=== PATIENT | female | born 1960 | race Caucasian/White ===

== ENCOUNTER 2023-12-24 13:26 | Inpatient (IN) | payer MEDICARE, BC, SELFPAY ==
[2023-12-24] VITALS (13 sets, daily range): BP systolic 101–157; BP diastolic 43–126
[2023-12-24 07:48] LABS: % Basophils 0.3 % (0-2); % Eosinophils 0.6 % (0-6); % Lymphocytes 4.7 % (20.5-51.1); % Monocytes 3.6 % (1.7-9.3); % Neutrophils 89.8 % (42.2-75.2); Absolute Basophils 0.1 10^3/uL (0-0.2); Absolute Eosinophils 0.1 10^3/uL (0-0.7); Absolute Immature Granulocytes 0.2 10^3/uL (0-0.05); Absolute Lymphocytes 0.7 10^3/uL (1.2-3.4); Absolute Monocytes 0.6 10^3/uL (0.1-0.6); Absolute Neutrophils 13.8 10^3/uL (1.4-6.5); Hematocrit 29.7 % (37.0-47.0); Hemoglobin 9.8 g/dL (12.0-16.0); Mean Corpuscular Hgb 31.4 pg (27.0-31.0); Mean Corpuscular Volume 95.2 fL (81.0-99.0); Mean Platelet Volume 12.1 fL (7.4-10.4); Nucleated Red Blood Cells % 0 %; Platelet Count 89 10^3/uL (130-400); Red Blood Cell Count 3.12 10^6/uL (4.20-5.40); Red Cell Dist. Width 16.7 % (11.5-14.5); White Blood Cell Count 15.4 10^3/uL (4.8-10.8)
[2023-12-24 08:05] LABS: Blood Urea Nitrogen 30 mg/dl (7-17); Calcium 8.9 mg/dl (8.4-10.2); Carbon Dioxide 20 mmol/L (22-30); Chloride 107 mmol/L (98-107); Glucose 136 mg/dl (70-99); Sodium 140 mmol/L (135-145); eGFR 11.57
--- NOTE | 2023-12-24 08:08 | ED.GENMED ---
History of Present Illness
General
Chief Complaint: Change in Mental Status
Source: ambulance crew and jail records
Time Seen by Provider: 12/24/23 07:33
History of Present Illness
History of Present Illness:
63 yo female from [facility] for change in mental state. H/o alcoholic cirrhosis, chronic hepatic failure, IDDM, dysphagia, epilepsy, anemia, renal failure on dialysis, ambulatory dysfunction, GERD, HTN, hypokalemia, long QT, TIA, thrombocytopenia presents
unresponsive to voice, not opening eyes, does cry out with certain movements during exam.
Spoke with Nurse at [facility] who reports yesterday a.m. she had dialysis, she was participating in activities, today she saw her sitting in a wheelchair and she would not wake up, her left calf swollen, gets intermittent edema. Reports Hx vaginal bleeding.
Ena nurse at [facility] states pt is usually A&O x3, feeds self, conversive. She last saw her yesterday 4 p.m. and she was 'fine.' She reports that pt did not go to bed all night, sat up in wheelchair and when she came in today at 7 a.m. found pt in
wheelchair, not responding with Ax temp 99.4.
Past History
Past History
ED Past Medical History: CVA, GERD, IDDM, Renal failure, Seizures and Other (End-stage renal disease with dialysis MWF, disequilibrium syndrome, cirrhosis, hepatitis C, UTI)
Social History
Tobacco: Non-smoker
Alcohol: None
Drug: None
Personal: Single
Living: jail
Employment: Not employed
Family History
Family History: Unable to obtain
Review of Systems
Review of Systems
Allergies reviewed?: Yes
Unable to obtain full review of systems at this time due to: non-verbal
Other source history: jail and ambulance crew
Constitutional: Reports fever
ABD/GI: Denies vomiting or diarrhea
Musculoskeletal: Reports edema (chronic LE edema L>R)
Neurological: Reports other (change in LOC )
Phy Exam
Physical Exam
Physical Exam:
GENERAL: No acute distress. A&Ox3.
CONSTITUTIONAL: Afebrile.
EYES: PERRL, conjunctivae normal
ENMT: moist mucus membranes, Pharynx nl
RESPIRATORY: Regular respirations, nonlabored, lungs clear.
CARDIOVASCULAR: Regular rate and rhythm, no murmurs, no rubs.
GI: Soft, nontender, normal BS
: Small amount vaginal bleeding noted.
MUSCULOSKELETAL: Laying in semi position on left side. Bilateral LE edema L>R. Well perfused.
SKIN: Warm, dry, pale
PSYCH: Not responding to commands, not opening eyes.
NEUROLOGIC: Responds by screaming out to significant stimuli such as inserting nichole catheter.
Course
Orders/Labs/Results
Orders:
Orders
12/24/23 07:29
Electrocardiogram (*1) Urgent
Reason for Study: Other
Other Reason for Exam: change in MS
EKG- Treatment ONCE
12/24/23 07:36
Basic Metabolic Panel Urgent
Complete Blood Count/With Diff Urgent
Hepatitis B Surface Antibody Urgent
Comment: ADD ON
Hepatitis B Surface Antigen Urgent
Comment: ADD ON
12/24/23 08:04
Acetaminophen [Tylenol/Feverall] 650 mg RECTAL NOW STA
12/24/23 08:10
Lactic Acid Q4H
Comment: CANCEL 2nd LACTIC ACID IF 1st LACTIC ACID IS LESS THAN 2
12/24/23 08:12
CR Chest Portable - 1 View Urgent
Comment:
Reason For Exam: fever, mental status change
Reason Study Needs to be Portable: Other
12/24/23 08:23
ED Sepsis IVF Contraindication Routine
Sepsis IVF Contraindication: Chronic Hemodialysis
0.9% Sodium Chloride 250 ml [Nss] 250 ml IV BOLUS
Piperacillin/Tazo 3.375 Gram [Zosyn] 3.375 gram in 50 ml IV NOW
12/24/23 08:27
Bladder Scan- Treatment ONCE
12/24/23 08:37
Lipase Urgent
Comment: ADD ON
Potassium Urgent
Blood Culture Q30M
BG Source: Blood/Venous
Specimen Description:
Blood Culture Q30M
BG Source: Blood/Venous
Specimen Description:
12/24/23 09:54
Add On- LAB Urgent
Tests Added?: Lipase
12/24/23 10:09
Abdomen/Pelvis wo Contrast CT [CT Abd/pelvis Wo Iv Cont] Urgent
Comment:
Reason For Exam: fever, dialysis pt, low abd pain
12/24/23 10:41
COVID-19 Antigen Urgent
Source: Nasal Swab
Influenza A+B Rapid Molecular Urgent
BG Source: Nasal Swab
Specimen Description:
12/24/23 11:41
Hemodialysis treatment As Directed
Treatment date:: 12/25/23
Treatment type: Hemodialysis
Ultrafiltration (kg): 1-2
Treatment time (duration): 3 hours 30 minutes
Use dialysis access:: Tunneled Cath
Dialyzer:: Optiflux 160
Blood flow rate minimum: 350
Blood flow rate maximum: 400
Dialysis flow rate: 600 mL/min
Dialysate temperature: 35 degrees Celsius
Sodium (Na): 140
Potassium (K): 2
Calcium (Ca): 2.5
Bicarbonate (HCO3): 35
12/24/23 11:57
Lactic Acid Q4H
Comment: CANCEL 2nd LACTIC ACID IF 1st LACTIC ACID IS LESS THAN 2
12/24/23 13:08
Admit/Transfer Patient As Directed
Co-Sign Provider:
Level of Care: Inpatient admission
Assign to:: IMU- Intermediate Care
Physician / Group: Mahesh
Diagnosis: Sepsis, Acute TME
Reason for Hospitalization: Sepsis work up
Expected length of stay greater than two midnights?: Yes
ELOS- Estimated Length of Stay in days: 3
I certify the patient meets the requirements for IP care: Yes
PRN Pain Medication Management As Directed
May give lesser potent ordered pain med per pt: Yes
preference::
Protocol:: Medication orders for pain may be administered in a
manner that supports deferring to patient preference
when the pt is:
- Requesting an ordered lesser potent pain medication.
Least to most potent pain medications are defined
as: acetaminophen < NSAID < tramadol < opioids
(morphine, oxycodone, hydromorphone).
- Requesting a lesser dose of the same medication IF
ORDERED.
- Requesting a less intrusive route of administration
if both routes are prescribed by the provider (PO <
IV).
12/24/23 13:10
Code Status As Directed
Resuscitation Status: Full Code
12/24/23 13:18
US Periph Venous LOWER Ext LT Urgent
Comment:
Reason For Exam: swelling
12/24/23 14:45
0.9% Sodium Chloride 1000 ml [Nss] 1,000 ml IV 80 mls/hr
Acetaminophen [Tylenol] 650 mg PO Q6HPRN PRN
Bisacodyl [Dulcolax] 10 mg RECTAL DAILYPRN PRN
Dextrose 50%-Water [Dextrose 50% Syringe] 12.5 grams IV Q41GLCH PRN
Glucagon [GlucaGen] 1 mg IM PRN PRN
Midodrine [ProAmatine] 5 mg PO Q8HPRN PRN
Ondansetron HCl [Zofran] 4 mg PO Q6HPRN PRN
VANCOMYCIN Pharmacy to Dose [VANCOCIN Pharmacy to Dose] 1 each Pharmacy To Prepare [Call Pharmacy To Prepare] 0 ml IV PER PROTOCOL
12/24/23 14:45
NEPHROLOGY CONSULT Routine
Consulting Provider: Adonay Nguyen
Was physician already notified: Yes
Activity As Directed
Activity Level: With Assistance
Bedside Glucose Monitoring As Directed
Frequency: AC&HS
Additional Instructions:: Change to q6h if pt on TPN, tube feeding or not eating
Fentanyl Patch Confirmation [phone]
Sequential Compression Device [Pneumatic Compression Sleeves] As Directed
Type: Knee high
Comment: RLE only
DX Deep Vein Thrombosis Video Routine
12/24/23 16:00
FentaNYL 12 MCG/HR PATCH [Duragesic 12 Mcg/Hr Patch] 1 patch TRANSDERM Q72H
Piperacillin/Tazo 2.25 Gram [Zosyn] 2.25 grams in 50 ml IV Q8H
12/24/23 16:30
Insulin Aspart Corrective Low [Novolog Flexpen-Low Resistance] See Protocol SC AC
Sevelamer Carbonate [Renvela] 800 mg PO AC
12/24/23 17:00
Famotidine [Pepcid] 10 mg PO Q48H
12/24/23 18:00
Lactulose [Duphalac/Chronulac] 20 grams PO QID
12/24/23 20:00
Levetiracetam Injectable [Keppra] 250 mg IV Q12
12/24/23 22:00
Latanoprost [Xalatan Ophthalmic Solution] 1 drop BOTH EYES HS
Mirtazapine [Remeron] 7.5 mg PO HS
insulin glargine [Lantus U-100 Insulin] 5 unit SC HS
12/25/23 04:53
CBC/With Diff [Complete Blood Count/With Diff] IN AM
CMP [Comprehensive Metabolic Panel] IN AM
Glycohemoglobin (HgbA1c) IN AM
12/25/23 08:00
Albumin Human 25% 50 ml [Flexbumin 25% For Hemodialysis] 12.5 grams IV HD-Q1HPRN PRN
Epoetin Harry-Epbx [Retacrit] 10,000 units IV HD-ONCE ONE
Heparin See Dose Instructions INTRACATH HD-ONCE ONE
Mannitol 25% 12.5 grams IV HD-Q1HPRN PRN
Midodrine [ProAmatine] 5 mg PO HD-ONCE ONE
Sodium Chloride [Sodium Chloride 4 Meq/ml For Hemodialysis] 10 ml IV HD-Q1HPRN PRN
Timolol Maleate 0.5% [Timoptic 0.5% Ophthalmic Solution] 1 drop BOTH EYES DAILY
12/26/23 06:00
CBC/With Diff [Complete Blood Count/With Diff] IN AM
12/27/23 06:00
CBC/With Diff [Complete Blood Count/With Diff] IN AM
12/27/23 08:00
Midodrine [ProAmatine] 5 mg PO MoWeFr@0800
Abnormal Lab Results
12/24/23 12/24/23 12/24/23
07:36 08:10 11:57
WBC 15.4 H 10^3/uL
(4.8-10.8)
RBC 3.12 L 10^6/uL
(4.20-5.40)
Hgb 9.8 L g/dL
(12.0-16.0)
Hct 29.7 L %
(37.0-47.0)
MCH 31.4 H pg
(27.0-31.0)
RDW 16.7 H %
(11.5-14.5)
Plt Count 89 L 10^3/uL
(130-400)
MPV 12.1 H fL
(7.4-10.4)
Abs Immat Gran (auto) 0.2 H 10^3/uL
(0-0.05)
Absolute Neuts (auto) 13.8 H 10^3/uL
(1.4-6.5)
Absolute Lymphs (auto) 0.7 L 10^3/uL
(1.2-3.4)
Immature Gran % 1.0 H %
(0-0.5)
Neutrophils % 89.8 H %
(42.2-75.2)
Lymphocytes % 4.7 L %
(20.5-51.1)
Carbon Dioxide 20 L mmol/L
(22-30)
BUN 30 H mg/dl
(7-17)
Creatinine 4.1 H* mg/dL
(0.6-1.0)
Glucose 136 H mg/dl
(70-99)
Lactic Acid 3.1 H mmol/L 2.5 H mmol/L
(0.7-2.0) (0.7-2.0)
12/24/23 07:36
12/24/23 08:37
Vital Signs
Initial and Last Documented VS:
Initial Vital Signs
Pulse Resp Pulse Ox
81 18 99
12/24/23 07:23 12/24/23 07:23 12/24/23 07:23
Last Documented Vital Signs
Temp Pulse Resp BP Pulse Ox
99.5 F 77 18 130/72 96
12/25/23 11:48 12/25/23 13:15 12/25/23 13:15 12/25/23 13:49 12/25/23 13:00
MDM/Problems Addressed
Differential Diagnosis Includes:
UTI, PNA, SIRS, Sepsis, metabolic encephalopathy
MDM/Problems Addressed:
63 yo female from [place] for change in mental state. H/o alcoholic cirrhosis, chronic hepatic failure, IDDM, dysphagia, epilepsy, anemia, renal failure on dialysis, ambulatory dysfunction, GERD, HTN, hypokalemia, long QT, TIA, thrombocytopenia presents
unresponsive to voice, not opening eyes, does cry out with certain movements during exam.
Spoke with Nurse at [facility] who reports yesterday a.m. she had dialysis, she was participating in activities, today she saw her sitting in a wheelchair and she would not wake up, her left calf swollen, gets intermittent edema. Reports Hx vaginal bleeding.
Had dialysis yesterday
nEa nurse at [facility] states pt is usually A&O x3, feeds self, conversive. She last saw her yesterday 4 p.m. and she was 'fine.' She reports that pt did not go to bed all night, sat up in wheelchair and when she came in today at 7 a.m. found pt in
wheelchair, not responding with Ax temp 99.4.
T 102.1 R, BP 157/73 HR 84 dialysis pt. Not responding to verbal commands, screams out with certain movements and Nichole catheterization.
9:30 a.m.
CBC: WBC 15.4
CMP: no clinically significant abnormality, consistent with her renal failure on dialysis
Straight cathed with no urine return. Bladder scan no urine in bladder, probably does not make urine
CXR: IMPRESSION: Small right pleural effusion and adjacent atelectasis.
Lactate 3.1
12:[address] done awaiting results
T 101.1 R
Plan: Admit: Change in mental state, SIRS unknown source.
Hospitalist notified of admission
*Critical Care Note
Total Time (30-74mins, 75-104mins- exclusive of procedures): Not Applicable
ED Attending Note
-
Portions of this chart may have been created with voice recognition software.� Occasional wrong word or��sound alike� substitutions may have occurred due to the inherent limitations of voice recognition software.
Discharge Plan
Departure
Patient Disposition: Admit
Date of Disposition: 12/24/23
Time of Disposition: 12:03
Admit to: IMU
Presentation/result/management discussed w/ accepting MD/DO: Hospitalist
Condition: Serious
Discharge Problem:
SIRS (systemic inflammatory response syndrome), Change in mental state
Interventions
Interventions:
*Risk Screen - Suicide Last Done: 12/24/23 18:00
*General Assessment Last Done: 12/24/23 07:23
*Neglect/Abuse Screening Last Done: 12/24/23 07:23
*ED COVID-19 Vaccine History Last Done: 12/24/23 07:23
*Nursing Disposition Last Done: 12/24/23 14:52
ED- Neurological Assessment Last Done: 12/24/23 07:23
ED- Cardiac Assessment Last Done: 12/24/23 08:15
Discharge Date and Time
Discharge Date/Time: 12/24/23 14:52
[2023-12-24] MEDS: TYLENOL/FEVERALL 650 MG RECTAL ×2 (08:13→16:12)
[2023-12-24 08:34] LABS: Lactic Acid 3.1 mmol/L (0.7-2.0)
[2023-12-24] MEDS: NSS 250 IV (08:42)
[2023-12-24] MEDS: ZOSYN 50 IV ×3 (08:42→23:35)
[2023-12-24 09:14] LABS: Potassium 4.8 mmol/L (3.5-5.1)
[2023-12-24 10:32] LABS: Lipase 47 U/L (23-300)
[2023-12-24 11:08] LABS: COVID-19 Antigen Negative (Negative)
--- NOTE | 2023-12-24 11:35 | W.CON.NEPH ---
Consultation
-
Date/Time Consultation Requested: 12/24/23 1000
Date/Time Consultation Performed: 12/24/23 1100
Requesting Provider: Dr Zhu
Performing Provider: Dr Nguyen
Reason for Consultation: ESRD
Medical History
-
Chief Complaint: mental status change
Past Medical History
1. History of ESRD for several years.
2. alf resident at [facility].
3. 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
4. History of left upper extremity hybrid AV graft, status post
removal.
5. Right chest wall catheter.
6. History of COVID.
7. AFib.
8. Seizure disorder.
9. Hyperparathyroidism.
10. Chronic thrombocytopenia.
11. Alcoholic cirrhosis 2003.
12. Lymphocytic colitis April 2021.
13. GI bleeding April 2021.
14. Anemia, CKD and ESLD.
15. Depression.
16. History of MSSA mitral valve endocarditis.
17. GERD.
18. History of left hip fracture with repair and left humeral
fracture.
19. Hysterectomy.
20. Glaucoma.
Social History
Tobacco: Non-Smoker
Alcohol: None
Family History
Family History: Not Pertinent
Allergies / Home Medications
Allergy/AdvReac Type Severity Reaction Status Date / Time
No Known Allergies Allergy Verified 11/02/22 15:04
�Medication �Instructions �Recorded �Confirmed �Type
levetiracetam 250 mg tablet 250 mg PO BID Seizures 02/01/20 12/24/23 History
bisacodyl 10 mg rectal suppository 10 mg ID DAILYPRN PRN CONSTIPATION 04/26/20 12/24/23 History
(OneLAX Bisacodyl)
lactulose 20 gram/30 mL oral 30 ml PO QID Liver disease 09/25/21 12/24/23 History
solution
ondansetron HCl 4 mg tablet 4 mg PO Q6HPRN PRN NAUSEA 09/25/21 12/24/23 History
latanoprost 0.005 % eye drops 1 drp BOTH EYES HS Eye condition 05/17/22 12/24/23 History
midodrine 5 mg tablet 5 mg PO MOWEFR before dialysis 05/17/22 12/24/23 History
sevelamer carbonate 800 mg tablet 800 mg PO AC Kidney Disease 05/17/22 12/24/23 History
(Renvela)
timolol maleate 0.5 % eye drops 1 drp BOTH EYES DAILY Eye condition 05/17/22 12/24/23 History
midodrine 5 mg tablet 5 mg PO Q8HPRN PRN SBP < 90 mmHg 05/28/22 12/24/23 Rx
#0 tabs
famotidine 20 mg tablet (Pepcid) 10 mg PO Q48H Gastrointestinal 08/23/22 12/24/23 History
Issue
fentanyl 12 mcg/hr transdermal 1 patch transdermal Q72H severe 08/23/22 12/24/23 History
patch Pain
insulin aspart U-100 100 unit/mL 1 sliding scale dose SC AC Diabetes 08/23/22 12/24/23 History
(3 mL) subcutaneous pen (Novolog
FlexPen U-100 Insulin aspart)
insulin glargine 100 unit/mL 5 unit SC HS Diabetes 08/23/22 12/24/23 History
subcutaneous solution (Lantus
U-100 Insulin)
trolamine salicylate 10 % topical 1 applic topical DAILY left upper 08/23/22 12/24/23 History
cream (Aspercreme) back leg
vitamin B complex and vitamin C 1 cap PO DAILY Supplement 09/20/22 12/24/23 History
no.20-folic acid 1 mg capsule
(Triphrocaps)
amlodipine 5 mg tablet (Norvasc) 5 mg PO HS Blood Pressure 11/02/22 12/24/23 History
acetaminophen 325 mg tablet 650 mg PO Q6HPRN PRN mild pain 12/24/23 12/24/23 History
(Tylenol)
mirtazapine 7.5 mg tablet 7.5 mg PO HS 12/24/23 12/24/23 History
Review of Systems
-
Unable to obtain full review of systems at this time due to: Patient Non Verbal
All other systems: Negative unless noted
Physical Exam
Vital Signs
Vital Signs
Temp Pulse Resp BP Pulse Ox
98.8 F 59 20 101/43 95
12/24/23 10:44 12/24/23 11:15 12/24/23 11:15 12/24/23 11:00 12/24/23 11:15
Lab Results
WBC 15.4 10^3/uL (4.8-10.8) H 12/24/23 07:36
RBC 3.12 10^6/uL (4.20-5.40) L 12/24/23 07:36
Hgb 9.8 g/dL (12.0-16.0) L 12/24/23 07:36
Hct 29.7 % (37.0-47.0) L 12/24/23 07:36
Plt Count 89 10^3/uL (130-400) L 12/24/23 07:36
Sodium 140 mmol/L (135-145) 12/24/23 07:36
Potassium 4.8 mmol/L (3.5-5.1) 12/24/23 08:37
Chloride 107 mmol/L (98-107) 12/24/23 07:36
Carbon Dioxide 20 mmol/L (22-30) L 12/24/23 07:36
BUN 30 mg/dl (7-17) H 12/24/23 07:36
Creatinine 4.1 mg/dL (0.6-1.0) H* 12/24/23 07:36
eGFR 11.57 12/24/23 07:36
Glucose 136 mg/dl (70-99) H 12/24/23 07:36
Calcium 8.9 mg/dl (8.4-10.2) 12/24/23 07:36
Albumin Cancelled 12/24/23 07:36
Laboratory Tests
11/05/22 12/24/23
07:49 08:37
Hgb 8.1 L
Potassium 4.8
Physical Exam
Patient is awake alert oriented and in no distress. Mood and affect were pleasant, insight and judgment were good. Pupils are equal round and reactive to light, extraocular movements are intact, sclera were anicteric. Hearing was normal, ears and
nose are intact. Oropharynx was clear. Neck was supple with trachea midline and no thyromegaly. Heart was regular rate and rhythm without rubs. Lower extremities with 1+ edema. Lungs were clear to auscultation bilaterally and with normal
excursion. Abdomen was soft, nontender, with normal active bowel sounds, and no hepatosplenomegaly. Skin was excoriation on the left lower leg with venous stasis changes. Right chest wall CVC clean dry and intact.
Data Reviewed
-
Radiology: Image Personally Visualized and interpreted (Chest x-ray on 12/24/2023 by my reading shows no acute disease, vascular prominence)
Medical Tests (Nuc Med, Echo etc): Image Personally Visualized and interpreted (EKG on 12/24/2023 by my read shows normal sinus rhythm prolonged QT)
Labs: Labs Reviewed by me
Old Records: Reviewed
Assessment/Plan
-
Assessment
ESRD
Fever/sepsis
ESLD on chronic midodrine with dialysis
Chronic thrombocytopenia pancytopenia
Paroxysmal atrial fibrillation
Diabetes mellitus type 2
Seizure disorder
Right CVC HD catheter/resection of left upper extremity hybrid AV graft
Plan
Empiric antibiotics
Await cultures plan for dialysis tomorrow per usual schedule
Midodrine with dialysis tomorrow if able to take oral meds
No heparin on dialysis
[2023-12-24 12:24] LABS: Lactic Acid 2.5 mmol/L (0.7-2.0)
--- NOTE | 2023-12-24 13:16 | HPS.HSE ---
Family Physician
-
Family Physician: Dakota Becerril
Chief Complaint
-
Confusion, fever
History of Present Illness
63-year-old female transferred from her shelter today for evaluation of altered mental status and fever. Unable to obtain history from patient as she is somnolent and confused. Not able to converse.
According to history, had dialysis yesterday and was behaving normally. group home staff found her sitting in her wheelchair today, somnolent. Noted to have fever.
Medical History
Past Medical History
Past Medical History: Reports Other
Additional Past Medical History:
ESRD on dialysis Saturday, Saturday, Saturday
Chronic anemia
Alcoholic cirrhosis
DM2
Epilepsy
Essential hypertension
HCV
GERD
Hyperparathyroidism
MSSA mitral valve endocarditis
Glaucoma
Chronic thrombocytopenia
History of left hip fracture
History of left humeral fracture
Past Surgical History: Reports Orthopedic
Additional Past Surgical History:
Left upper extremity hybrid AV graft, status post removal
Chest wall dialysis catheter
Hysterectomy
Social History
Tobacco: Non-smoker
Alcohol: None
Drug: None
Living: Assisted
Family History
Family History: Not pertinent
Allergies / Home Medications
Allergies reflects when Allergies were last updated in [employer].
Home Medications with original date entered in [employer]
Allergy/Medication List:
Allergies
Allergy/AdvReac Type Severity Reaction Status Date / Time
No Known Allergies Allergy Verified 11/02/22 15:04
Home Medications
levetiracetam 250 mg tablet 250 mg PO BID Seizures 02/01/20
bisacodyl 10 mg rectal suppository (OneLAX Bisacodyl) 10 mg MO DAILYPRN PRN CONSTIPATION 04/26/20
lactulose 20 gram/30 mL oral solution 30 ml PO QID Liver disease 09/25/21
ondansetron HCl 4 mg tablet 4 mg PO Q6HPRN PRN NAUSEA 09/25/21
latanoprost 0.005 % eye drops 1 drp BOTH EYES HS Eye condition 05/17/22
midodrine 5 mg tablet 5 mg PO MOWEFR before dialysis 05/17/22
sevelamer carbonate 800 mg tablet (Renvela) 800 mg PO AC Kidney Disease 05/17/22
timolol maleate 0.5 % eye drops 1 drp BOTH EYES DAILY Eye condition 05/17/22
midodrine 5 mg tablet 5 mg PO Q8HPRN PRN SBP < 90 mmHg #0 tabs 05/28/22
famotidine 20 mg tablet (Pepcid) 10 mg PO Q48H Gastrointestinal Issue 08/23/22
fentanyl 12 mcg/hr transdermal patch 1 patch transdermal Q72H severe Pain 08/23/22
insulin aspart U-100 100 unit/mL (3 mL) subcutaneous pen (Novolog FlexPen U-100 Insulin aspart) 1 sliding scale dose SC AC Diabetes 08/23/22
insulin glargine 100 unit/mL subcutaneous solution (Lantus U-100 Insulin) 5 unit SC HS Diabetes 08/23/22
trolamine salicylate 10 % topical cream (Aspercreme) 1 applic topical DAILY left upper back leg 08/23/22
vitamin B complex and vitamin C no.20-folic acid 1 mg capsule (Triphrocaps) 1 cap PO DAILY Supplement 09/20/22
amlodipine 5 mg tablet (Norvasc) 5 mg PO HS Blood Pressure 11/02/22
acetaminophen 325 mg tablet (Tylenol) 650 mg PO Q6HPRN PRN mild pain 12/24/23
mirtazapine 7.5 mg tablet 7.5 mg PO HS 12/24/23
Review of Systems
-
Unable to obtain full review of systems at this time due to: Acuity
Physical Exam
Vital Signs
Vital Signs
Temp Pulse Resp BP Pulse Ox
101.1 F H 62 21 122/94 100
12/24/23 12:03 12/24/23 13:00 12/24/23 13:00 12/24/23 13:00 12/24/23 13:00
Physical Exam
General: Well Developed, Well Nourished, Appears in Distress and Pain
HEENT: NormoCephalic and Anicteric
Respiratory: Clear
Cardiac: S1/S2 and Regular Rhythm
Breast: Deferred by me
GI: Soft, Non Tender and Non Distended
Genito-urinary: Deferred by me
Musculoskeletal: No Clubbing, No Cyanosis, Edema, Left Lower Extremity, Edema, Right Lower Extremity and Other (Diffuse lymphedema and erythema of the left lower extremity below the knee)
Skin: Warm and Dry
Neuro: Sedated
Hematologic/Lymphatic: No Lymphadenopathy
Psych: Confused and Agitated
Laboratory Results
-
12/24/23 07:36
12/24/23 08:37
Laboratory Results
Lactic Acid 2.5 mmol/L (0.7-2.0) H 12/24/23 11:57
Total Bilirubin Cancelled 12/24/23 07:36
AST Cancelled 12/24/23 07:36
ALT Cancelled 12/24/23 07:36
Alkaline Phosphatase Cancelled 12/24/23 07:36
Lipase 47 U/L (23-300) 12/24/23 08:37
Impression/Plan
-
Acute TME -likely due to sepsis. Cannot rule out component of hepatic encephalopathy due to sepsis. Continue lactulose. Continue supportive care.
Sepsis -source unclear but differential diagnosis includes bacteremia due to dialysis catheter, left lower extremity cellulitis, etc. Doubt [employer]GAL [employer]IST[employer] infection. CT abdomen/pelvis without obvious source of infection. Chest x-ray with small right pleural
effusion, adjacent atelectasis. Blood culture sent. Doubt urinary tract infection. No urine noted on bladder scan and no urine obtained via straight cath.
Started vancomycin, Zosyn pending culture results. Check MRSA swab.
Lactic acidosis likely due to sepsis.
COVID-negative, influenza negative.
Left lower extremity cellulitis -with chronic underlying lymphedema. Check Doppler ultrasound of left lower extremity given asymmetric edema. Anticipate consolidating antibiotics to cefazolin if blood cultures negative.
ESRD on HD -Saturday/Saturday/Saturday. Nephrology consulted.
Mild L1 vertebral compression deformity -noted on CT. New compared to prior CT of September 2022.
DM 2 without hyperglycemia -she is on glargine insulin 5 units at bedtime, NovoLog insulin sliding scale in the shelter.
Alcoholic cirrhosis
Epilepsy -continue Keppra, administer IV for now.
Essential hypertension -stable.
Chronic anemia -normocytic, likely due to ESRD.
HCV
Chronic thrombocytopenia -likely due to cirrhosis, splenic sequestration.
Full code
Dispo - back to shelter when medically stable.
Updated sister Carissa on the phone.
[2023-12-24 14:08] LABS: Ammonia 67 umol/L (9-30)
--- NOTE | 2023-12-24 15:00 | PTCARENOTE ---
Received patient from ED. Patient admitted with altered mental status. She is confused and somnolent. Unable to communicate at this time. Patient was INC of small stool. Skin tear on left arm and excoriated skin at groin and perineum. Yeast
rash at skin folds under bilateral breast and abdominal skin folds. Right HD port noted. Patient with fentanyl patch on left chest wall. Axillary temperature of 101.6 on arrival.
--- NOTE | 2023-12-24 15:03 | PHA.VAN.IN ---
Assessment
- Assessment
Renal Function: Patient has ESRD, on chronic Hemodialysis
Hemodialysis Schedule: MWF
Concomitant Antimicrobials: piperacillin/tazobactam
Plan
- Plan
Initial / Loading Dose: 1500mg - administration pending
Maintenance Regimen: dosing by level
Monitoring: random 12/24 0600
Pharmacokinetics Vancomycin I
- -
Patient Age: 63
Patient Sex: Female
Vancomycin Day #: 1
Indication: Bacteremia
Requesting Provider: Dr. Aragon
Pertinent Antimicrobial Allergies:
NKDA
Height / Weight:
Height 5 ft 3 in
Actual Weight 64.6 kg
Pertinent Past Medical History: ESRD on HD MWF, DM 2
- Vital Signs / Lab Results
Temp Pulse Resp BP Pulse Ox
101.1 F H 61 20 122/59 100
12/24/23 12:03 12/24/23 14:15 12/24/23 14:15 12/24/23 14:00 12/24/23 14:15
Lab Results - Hematology
12/24/23
07:36
WBC 15.4 H
Lab Results - Chemistry
12/24/23
07:36
BUN 30 H
Creatinine 4.1 H*
Albumin Cancelled
12/24/23 12/24/23
08:10 11:57
Lactic Acid 3.1 H 2.5 H
Microbiology Results
12/24/23 10:41 Influenza Types A & B ([facility]) - Final
Nasal Swab Negative for Influenza A & B, NAAT
Negative results must be combined with clinical observations
and patient history.
Nucleic Acid Amplification test (NAAT)performed on the
[employer] platform.
[2023-12-24] MEDS: NSS 1000 IV (15:41)
[2023-12-24] MEDS: DURAGESIC 12 MCG/HR PATCH 1 PATCH TRANSDERM (16:19)
[2023-12-24 16:20] LABS: Glucose - Point of Care 108 mg/dl (70-99)
[2023-12-24] MEDS: VANCOCIN 530 MG IV (16:25)
[2023-12-24 16:26] LABS: Hepatitis B Surface Antigen Negative (Negative)
[2023-12-24] MEDS: DESENEX/MITRAZOL/ZEASORB 1 APPLIC TOPICAL (16:26)
[2023-12-24] MEDS: RENVELA PO (16:26)
[2023-12-24 16:43] LABS: Hepatitis B Surface Antibody Negative
--- NOTE | 2023-12-24 18:00 | PTCARENOTE ---
MD made aware that patient is not alert to take any oral medications.
[2023-12-24] MEDS: PEPCID PO (18:29)
[2023-12-24] MEDS: DUPHALAC/CHRONULAC PO ×2 (18:29→20:57)
[2023-12-24 18:35] LABS: Lactic Acid 2.6 mmol/L (0.7-2.0)
[2023-12-24] MEDS: KEPPRA 250 MG IV (20:34)
[2023-12-24 20:48] LABS: Glucose - Point of Care 116 mg/dl (70-99)
[2023-12-24] MEDS: REMERON PO (20:57)
[2023-12-24] MEDS: LANTUS SC (21:40)
--- NOTE | 2023-12-24 22:09 | PTCARENOTE ---
Addendum entered by Oliver Camejo RN 12/24/23 23:09:
Lactic result of 2.1; IRVIN Fernandez made aware. will recheck in AM with labwork. Also mentioned to IRVIN Fernandez that pt did not receive a CT head when admitted.
Original Note:
Lactic result of 2.6; Reported to IRVIN Callejas. Will recheck in four hours. IVF will complete after 1L infused, and order will discontinue automatically; IRVIN made aware. No other orders received. Patient continues to be lethargic, but able to nod
head and moans when turned. When asked where her pain is, pt does not answer. Refused oral care. HOB 30 degrees. Turned q2 hours, heels floated. Bed alarm set for safety. Call sandoval within reach.
[2023-12-24 23:00] LABS: Lactic Acid 2.1 mmol/L (0.7-2.0)
[2023-12-24] MEDS: XALATAN OPHTHALMIC SOLUTION 1 DROP BOTH EYES (23:35)
[2023-12-25] VITALS (29 sets, daily range): BP systolic 108–143; BP diastolic 47–88; BMI 25.4
[2023-12-25 05:29] LABS: Hematocrit 23.8 % (37.0-47.0); Hemoglobin 7.6 g/dL (12.0-16.0); Mean Corp Hgb Conc. 31.9 g/dL (33.0-37.0); Mean Corpuscular Volume 94.1 fL (81.0-99.0); Mean Platelet Volume 10.6 fL (7.4-10.4); Platelet Count 59 10^3/uL (130-400); Red Blood Cell Count 2.53 10^6/uL (4.20-5.40); Red Cell Dist. Width 17.1 % (11.5-14.5)
[2023-12-25 05:35] LABS: ALT (SGPT) 23 U/L (0-35); AST (SGOT) 46 U/L (14-36); Albumin 2.1 g/dl (3.5-5.0); Alkaline Phosphatase 122 U/L (38-126); Blood Urea Nitrogen 42 mg/dl (7-17); Calcium 8.2 mg/dl (8.4-10.2); Carbon Dioxide 21 mmol/L (22-30); Chloride 109 mmol/L (98-107); Estimated Creatinine Clearance 8 ml/min; Glucose 121 mg/dl (70-99); Sodium 141 mmol/L (135-145); Total Bilirubin 1.1 mg/dl (0.2-1.3); Total Protein 5.2 g/dl (6.3-8.2); eGFR 7.79
[2023-12-25 05:36] LABS: Lactic Acid 1.9 mmol/L (0.7-2.0)
--- NOTE | 2023-12-25 05:37 | PTCARENOTE ---
María is more awake this morning; able to converse and state she is in [facility] and the year 2023. Plan for dialysis later today.
[2023-12-25 05:40] LABS: Potassium 4.5 mmol/L (3.5-5.1)
[2023-12-25 05:41] LABS: Vancomycin Random 19.6 ug/ml
[2023-12-25 07:57] LABS: Absolute Neutrophils -Man Diff 8.3 10^3/uL (1.4-6.5); Band Neutrophils 13 % (0-3); Lymphocytes 5 % (20-51); Metamyelocytes 1 % (-); Monocytes 1 % (2-9); Platelets Checked Yes; Segmented Neutrophils 80 % (42-75)
[2023-12-25 07:58] LABS: Anisocytosis 1+; Hypochromasia 1+; Normal RBC Morphology No; Total Cells Counted 100
[2023-12-25] MEDS: RENVELA PO ×3 (08:07→18:07)
[2023-12-25] MEDS: KEPPRA 250 MG IV ×2 (08:35→20:26)
[2023-12-25] MEDS: ZOSYN 50 IV ×3 (08:35→23:49)
[2023-12-25] MEDS: DUPHALAC/CHRONULAC 20 GRAMS PO ×4 (08:36→20:27)
[2023-12-25] MEDS: DESENEX/MITRAZOL/ZEASORB 1 APPLIC TOPICAL ×2 (08:45→20:26)
[2023-12-25 08:56] LABS: Glucose - Point of Care 114 mg/dl (70-99)
--- NOTE | 2023-12-25 09:15 | WOUNDNOTE ---
RIGHT LOWER ANTERIOR LEG
--- NOTE | 2023-12-25 09:15 | WOUNDNOTE ---
TRACI RN note: Patient admitted with systemic inflammatory response syndrome.
See H&P for complete history. From [facility]
PMH: CVA, alcohol cirrhosis, IDDM,CVA,RF-Dialysis and dysphagia.
Wound Location and type/assessment: Patient admitted with: skin tears on R lower leg and L arm. R leg nearly healed, very shallow scant drainage. L arm skin tear, partial thickness, pink base small drainage. Skin folds with MASD, fungal powder
appropriate. Turned patient with assistance from nursing, sacrum blanchable red, mild MASD, incontinent of soft stool. Heels boggy, barely blanchable, foams in use and pillow under calves.
Appetite: NPO.
Pressure redistribution devices in place:Centrella air bed, keep on air mattress if transferred.
Plan: Local wound care to skin tears done, fungal powder applied to skin folds. Skin care given and brief changed. Reassurance given to patient who calls out whenever touched even lightly. Foams applied to heels and pillow under calves. Repositioned
patient for comfort. Will confirm orders with hospitalist and updated nurse Marilynn.
Updated care plan and will sign off.
Note to case management of equipment requested for discharge: none.
--- NOTE | 2023-12-25 09:18 | WOUNDNOTE ---
LEFT ANTERIOR LOWER ARM
--- NOTE | 2023-12-25 09:18 | WOUNDNOTE ---
ABDOMEN SKIN FOLD
[2023-12-25 09:34] LABS: Glycohemoglobin (HgbA1c) 5.7 % (4.0-5.6)
--- NOTE | 2023-12-25 09:36 | CON.ID ---
Consultation
-
Date/Time Consultation Requested: 12/25/23 9:21
Date/Time Consultation Performed: 12/25/23 9:37
Requesting Provider: Dr Aragon
Performing Provider: Dr Ricks
Reason for Consultation: GNR bacteremia, HD
Chief Complaint / Past History
Chief Complaint
confusion, fever
History of Present Illness
Ms Brooks is a 63 year old female with ESRD on HD, cirrhosis due to EtOH abuse/HCV, Epilepsy, MSSA MV endocarditis who presented here from [facility] for AMS and fever. She was in her usual state of health for HD 12/22 then the next morning
she was found somnolent and febrile and transferred here for further evaluation. History is limited by the condition of the patient
Since arrival here she has been febrile to 102.1 rectally, bp overall stable, wbc initially 15 today 9.0, hgb 7.6, plt 59 which is in her usual range, L shift noted on arrival, lactic acid initially 3.1 now 1.9, na 140, cr 4.1, K 4.8, t bili 1.1,
ast 46, alt 23, alk phos 122, covid ag neg, US us of the L lower extremity: mildly enlarged reactive L groin LN, 12/23 CT a/p without contrast: small foci of gas in bladder, stercoral colitis, cirrhosis with varices, small effusion, anasarca, 12/23
CXR: no infiltrates, HD cath noted, she is on lactulose. Stright cath attempted and there was no return of urine. COVID and influenza screens negative, She was initially started on vancomcyin and zosyn, found to have E coli bacteremia. Today she
is alert, oriented to person place and time and able to answer simple questions. Reports diffuse body pain - reporting that most parts of her body are painful. Denies: headache, sinus tenderness, cough, pain over HD cath, sputum production,
nausea, vomiting, diarrhea, abdominal pain, increased pain in the legs from baseline, new wounds, new joint pains. For HD later today
Past History
Additional Past Medical History:
ESRD on dialysis Saturday, Saturday, Saturday
Chronic anemia
Alcoholic cirrhosis
DM2
Epilepsy
Essential hypertension
HCV
GERD
Hyperparathyroidism
MSSA mitral valve endocarditis
Glaucoma
Chronic thrombocytopenia
Lymphocytic colitis
History of left hip fracture
History of left humeral fracture
Additional Past Surgical History:
Left upper extremity hybrid AV graft, status post removal
Chest wall dialysis catheter
Hysterectomy
Allergy History:
No Known Allergies Allergy (Verified 11/02/22 15:04)
Medications Reviewed: Yes
Social History
Tobacco: Non-Smoker
Alcohol: None
Drug: None
Family History
Family History: Not Pertinent
Review of Systems
Review of Systems
General: Fever and Chills
All systems: All other systems were reviewed and were negative
Vital Signs
Temp Pulse Resp BP Pulse Ox
98.3 F 75 16 141/53 99
12/25/23 07:47 12/25/23 06:15 12/25/23 06:15 12/25/23 06:00 12/25/23 06:15
Physical Exam
Physical Exam
Constitutional: No Acute Distress and Chronically Ill
Cardiovascular: Regular Rate and S1/S2; Negative Murmur or Rub
Pulmonary: Clear and Symmetric; Negative Wheezes, Rales or Rhonchi
Gastrointestinal: Soft, Tender, Non Distended, Normal Bowel Sounds, No Rebound and No Guarding
Skin: Warm and Dry; Negative Rash or Jaundice
Wound: Other (venous stasis dermatitis of the bilateral lower extremities - no pitting edema, mild pinkness, cracked skin)
Neurological: Awake, AO x 3 and Other (+ asterixes)
Lines: HD Cath (no erythema, tenderness or drainage)
Lab / Diagnostic Study Results
12/25/23 04:53
Abs Immat Gran (auto) 0.2 10^3/uL (0-0.05) H 12/24/23 07:36
Absolute Neuts (auto) 13.8 10^3/uL (1.4-6.5) H 12/24/23 07:36
Absolute Lymphs (auto) 0.7 10^3/uL (1.2-3.4) L 12/24/23 07:36
Absolute Monos (auto) 0.6 10^3/uL (0.1-0.6) 12/24/23 07:36
Absolute Basos (auto) 0.1 10^3/uL (0-0.2) 12/24/23 07:36
Total Counted 100 12/25/23 04:53
Immature Gran % 1.0 % (0-0.5) H 12/24/23 07:36
Neutrophils % 89.8 % (42.2-75.2) H 12/24/23 07:36
Lymphocytes % 4.7 % (20.5-51.1) L 12/24/23 07:36
Monocytes % 3.6 % (1.7-9.3) 12/24/23 07:36
Eosinophils % 0.6 % (0-6) 12/24/23 07:36
Basophils % 0.3 % (0-2) 12/24/23 07:36
Abs Neuts (Manual) 8.3 10^3/uL (1.4-6.5) H 12/25/23 04:53
Segmented Neutrophils 80 % (42-75) H 12/25/23 04:53
Band Neutrophils 13 % (0-3) H 12/25/23 04:53
Lymphocytes (Manual) 5 % (20-51) L 12/25/23 04:53
Lactic Acid 1.9 mmol/L (0.7-2.0) 12/25/23 04:53
Microbiology Results
Micro:
12/24/23 08:37 Blood Culture - Preliminary
Blood/Venous Positive culture in progress
Gram Stain - Final
12/24/23 08:37 Blood Culture - Preliminary
Blood/Venous Positive culture in progress
Gram Stain - Final
12/24/23 17:53 MRSA Screen - Pending
Nose
12/24/23 10:41 Influenza Types A & B ([facility]) - Final
Nasal Swab Negative for Influenza A & B, NAAT
Negative results must be combined with clinical observations
and patient history.
Nucleic Acid Amplification test (NAAT)performed on the
[employer] platform.
Assessment / Plan
ESBL Ecoli Bacteremia
ESRD on HD via HD catheter
Anasarca
Epilepsy
- repeat blood cultures x2 - paired cultures one set from HD line and one set from periphery at the same time
- anasarca - limited abd US to confirm no drainable pocket of ascites
- CXR and CT a/p without definite source - stercoral colitis noted - translocation a possibility - on lactulose and BM recorded
- straight cath yielded no urine
- LLE: chronic venous stasis dermatitis - unlikely to be the source
- TTE given history of endocarditis - patient at higher risk in the future
- agree with zosyn; leukocytosis appears to be responding
- follow clinically
Care Review
Plan reviewed with: Nurse (paired cultures)
--- NOTE | 2023-12-25 09:41 | W.PN.HOSP.TC ---
Addendum entered and electronically signed by Juan Aragon DO 12/25/23 16:32:
I spoke with nursing detective supervisor at [facility]. Baseline hemoglobin was 8.2 on October 21, 7.9 on November 19, 2023.
Repeat hemoglobin here is 7.7, she is not that far off her baseline. Monitor for now.
Updated patient's sister Carissa on the phone. All questions answered.
Original Note:
Today's Communication/Plan
-
Continue antibiotics
Resume diet
Dialysis today
ID consult
PT/OT
Assessment / Plan
Assessment / Plan
Gen-awake, moderate distress due to pain
HEENT-NC, AT, anicteric, clear oral mm
Neck-supple
CV-reg, no M, +S1/S2
Lungs-clear B/L
Abd-soft, NT, ND
Ext-left lower extremity lymphedema, erythema
Musculoskeletal-no cyanosis, clubbing
Skin-warm and dry
Neuro-grossly non-focal
Psych-calm, cooperative
Acute TME -likely due to sepsis. Mental status improving. Doubt hepatic encephalopathy, continue lactulose. Resume diet now that she is more awake.
Sepsis -source unclear but differential diagnosis includes bacteremia due to dialysis catheter, left lower extremity cellulitis, etc. Doubt [employer] infection. CT abdomen/pelvis without obvious source of infection. Chest x-ray with small right pleural
effusion, adjacent atelectasis. Blood culture positive for gram-negative bacilli. Doubt urinary tract infection. No urine noted on bladder scan and no urine obtained via straight cath.
Continue IV Zosyn, stop vancomycin. Check MRSA swab. Consult ID.
Lactic acidosis likely due to sepsis.
COVID-negative, influenza negative.
Left lower extremity cellulitis -with chronic underlying lymphedema. Doppler ultrasound negative for DVT.
ESRD on HD -Saturday/Saturday/Saturday. Nephrology consulted.
Mild L1 vertebral compression deformity -noted on CT. New compared to prior CT of September 2022.
DM 2 without hyperglycemia -she is on glargine insulin 5 units at bedtime, NovoLog insulin sliding scale in the long-term. Glucose 121 this morning. Hemoglobin A1c unreliable in the setting of chronic anemia.
Alcoholic cirrhosis
Epilepsy -continue Keppra, administer IV for now.
Essential hypertension -stable.
Acute on chronic anemia -hemoglobin 7.6 this morning, was 9.8 on admission. Baseline hemoglobin appears to be around 8. Recheck hemoglobin around noon time. No obvious bleeding clinically.
HCV
Chronic thrombocytopenia -likely due to cirrhosis, splenic sequestration.
Full code
Dispo - back to long-term when medically stable.
Anticipated Discharge: > 48 hours
Subjective/Interval History
-
Date of Service: December 25, 2023
Patient seen and examined. More awake, alert today. Complaining of abdominal pain but cannot localize.
Objective Data
-
Labs:
Laboratory Results
12/25/23 12/25/23
04:53 12:00
WBC 9.0
Hgb 7.6 L D Pending
Hct 23.8 L Pending
Plt Count 59 L D
Sodium 141
Potassium 4.5
Chloride 109 H
Carbon Dioxide 21 L
BUN 42 H
Creatinine 5.7 H*
Glucose 121 H
Calcium 8.2 L
Total Bilirubin 1.1
AST 46 H
ALT 23
Alkaline Phosphatase 122
Vital Signs:
Vital Signs
Temp Pulse Resp BP Pulse Ox
98.3 F 80 22 122/77 97
12/25/23 07:47 12/25/23 08:00 12/25/23 08:00 12/25/23 08:00 12/25/23 08:00
I&O
12/24/23 12/25/23 12/26/23
06:59 06:59 06:59
Intake Total 1377 / 1377
Balance 1376
Review of Systems
-
History Source: Patient
All other systems: Reviewed and negative
[2023-12-25] MEDS: TIMOPTIC 0.5% OPHTHALMIC SOLUTION 1 DROP BOTH EYES (10:20)
[2023-12-25] MEDS: NOVOLOG FLEXPEN-LOW RESISTANCE SC ×3 (12:03→23:22)
[2023-12-25 12:12] LABS: Glucose - Point of Care 104 mg/dl (70-99)
[2023-12-25 13:19] LABS: Hematocrit 23.2 % (37.0-47.0); Hemoglobin 7.7 g/dL (12.0-16.0)
--- NOTE | 2023-12-25 13:39 | W.PN.NEPH.HD ---
Assessment
-
Patient seen on dialysis patient complains of weakness and allover pain
Patient with E. coli bacteremia,source to be determined
Remains on IV Zosyn
Systolic blood pressure currently at 134 and stabilized for increased UF
HD via catheter with good function (will likely require removal at some point)
Repeat blood culture to be obtained peripherally and through dialysis catheter
Progress Note - Hemodialysis
-
Date of Service: December 25, 2023
Duration: 3 hours
Potassium Bath: 2
Calcium Bath: 2.5
Opti-Dialyzer: 160
Ultrafiltration: Other (1.5 to 2 kg as hemodynamically tolerated)
Blood Flow: 400
Dialysate Flow: 600
Heparin: None
EPO: 10,000
[2023-12-25] MEDS: ProAmatine 5 MG PO (13:49)
[2023-12-25] MEDS: RETACRIT 10000 UNITS IV (15:59)
[2023-12-25] MEDS: HEPARIN 3900 UNITS INTRACATH (16:11)
[2023-12-25 17:41] LABS: Glucose - Point of Care 83 mg/dl (70-99)
--- NOTE | 2023-12-25 17:54 | CM ---
Patient from [facility] with Hx ESRD on HD, Etoh cirrhosis. Room air. Receiving IV Keppra, IV Zosyn. Per nursing; drowsy, lethargic. PT held today.
Spoke with Feng Malone [facility];
the patient resides there in LTC and is on an MA bed hold.
She is A/Ox3 at baseline.
The patient requires limited assistance with ADLs, is w/c bound and transfers with assist of 1.
She was not receiving PT/OT at SNF.
Plan follow up after seen by PT/OT.
Plan return to [facility] when medically ready.
--- NOTE | 2023-12-25 18:12 | PTCARENOTE ---
Rec'd pt this AM. Pt very lethargic and minimally responsive at start of shift. More easily arousable later in the day. Able to take PO meds crushed in applesauce. Pt very sensitive to movement. Will cry out but responds to distraction much of the
time. vital signs stable. remains NPO.
--- NOTE | 2023-12-25 18:15 | PTCARENOTE ---
Rec'd pt this AM. more awake and arousable later today. able to take PO meds crushed in applesauce. tolerated HD today. vital signs stable.
[2023-12-25] MEDS: XALATAN OPHTHALMIC SOLUTION 1 DROP BOTH EYES (20:27)
[2023-12-25] MEDS: REMERON PO (21:06)
[2023-12-25 23:30] LABS: Glucose - Point of Care 125 mg/dl (70-99)
[2023-12-26] VITALS (15 sets, daily range): BP systolic 100–144; BP diastolic 55–107; PULSE 67–68; O2SAT 98–100; BMI 24.2
[2023-12-26] MEDS: LANTUS 0.05 UNITS SC ×2 (00:03→22:07)
--- NOTE | 2023-12-26 04:38 | PTCARENOTE ---
Fentanyl patch to right upper chest in place. two loose incont BM. barrier cream applied generously; zacarias area is red/ excoriated from incontinence. pt able to state year and place, still drowsy. NSR w/ PACs on tele. moans when turned but unable to
state where pain is or what is wrong. swallowing safely. turned throughout the night, heels floated. t-max 100.3, tolerating iv abx. call sandoval within reach.
[2023-12-26 05:06] LABS: % Basophils 0.4 % (0-2); % Immature Granulocytes 1.6 % (0-0.5); % Lymphocytes 10.3 % (20.5-51.1); % Monocytes 9.3 % (1.7-9.3); % Neutrophils 77.4 % (42.2-75.2); Absolute Eosinophils 0.1 10^3/uL (0-0.7); Absolute Immature Granulocytes 0.1 10^3/uL (0-0.05); Absolute Lymphocytes 0.5 10^3/uL (1.2-3.4); Absolute Monocytes 0.5 10^3/uL (0.1-0.6); Absolute Neutrophils 3.9 10^3/uL (1.4-6.5); Hematocrit 23.6 % (37.0-47.0); Hemoglobin 7.9 g/dL (12.0-16.0); Mean Corp Hgb Conc. 33.5 g/dL (33.0-37.0); Mean Corpuscular Hgb 30.5 pg (27.0-31.0); Mean Corpuscular Volume 91.1 fL (81.0-99.0); Mean Platelet Volume 10.3 fL (7.4-10.4); Nucleated Red Blood Cells % 0 %; Platelet Count 43 10^3/uL (130-400); Red Blood Cell Count 2.59 10^6/uL (4.20-5.40)
[2023-12-26] MEDS: NOVOLOG FLEXPEN-LOW RESISTANCE SC (06:20)
[2023-12-26 06:28] LABS: Glucose - Point of Care 91 mg/dl (70-99)
[2023-12-26] MEDS: RENVELA 800 MG PO ×3 (08:20→17:35)
[2023-12-26] MEDS: KEPPRA 250 MG IV (08:21)
[2023-12-26] MEDS: DUPHALAC/CHRONULAC 20 GRAMS PO ×3 (08:21→22:09)
[2023-12-26] MEDS: DESENEX/MITRAZOL/ZEASORB 1 APPLIC TOPICAL ×2 (08:21→19:37)
[2023-12-26] MEDS: TIMOPTIC 0.5% OPHTHALMIC SOLUTION 1 DROP BOTH EYES (08:22)
[2023-12-26] MEDS: ZOSYN 50 IV (08:23)
--- NOTE | 2023-12-26 09:00 | W.PN.NEPH.PH ---
Today's Communication / Plan
-
Dialysis tomorrow
Escalate JUAN on dialysis for anemia
Assessment/Plan
-
Assessment
ESRD
Fever/sepsis
ESLD on chronic midodrine with dialysis
Chronic thrombocytopenia pancytopenia
Paroxysmal atrial fibrillation
Diabetes mellitus type 2
Seizure disorder
Right CVC HD catheter/resection of left upper extremity hybrid AV graft
Plan
Zosyn for E. coli bacteremia
dialysis tomorrow per usual schedule,orders provided
Midodrine with dialysis tomorrow if able to take oral meds
No heparin on dialysis
Escalate JUAN on dialysis for anemia
-
-
Date of Service: December 26, 2023
CC / HPI / ROS
-
Chief Complaint:
ESRD
History of Present Illness:
ESRD MWF
Hemodynamically stable
Remains on Zosyn for E. coli bacteremia
Review of Systems:
Fevers persist
Mental status back towards baseline
Denies body pain
HD IJ catheter
Labs
-
Labs:
WBC 5.0 10^3/uL (4.8-10.8) 12/26/23 04:15
RBC 2.59 10^6/uL (4.20-5.40) L 12/26/23 04:15
Hgb 7.9 g/dL (12.0-16.0) L 12/26/23 04:15
Hct 23.6 % (37.0-47.0) L 12/26/23 04:15
Plt Count 43 10^3/uL (130-400) L D 12/26/23 04:15
Sodium 141 mmol/L (135-145) 12/25/23 04:53
Potassium 4.5 mmol/L (3.5-5.1) 12/25/23 04:53
Chloride 109 mmol/L (98-107) H 12/25/23 04:53
Carbon Dioxide 21 mmol/L (22-30) L 12/25/23 04:53
BUN 42 mg/dl (7-17) H 12/25/23 04:53
Creatinine 5.7 mg/dL (0.6-1.0) H* 12/25/23 04:53
eGFR 7.79 12/25/23 04:53
Glucose 121 mg/dl (70-99) H 12/25/23 04:53
Calcium 8.2 mg/dl (8.4-10.2) L 12/25/23 04:53
Albumin 2.1 g/dl (3.5-5.0) L 12/25/23 04:53
Physical Exam
-
Vital Signs:
Vital Signs
Temp Pulse Resp BP Pulse Ox
98.2 F 71 14 126/66 97
12/26/23 07:22 12/26/23 06:00 12/26/23 06:00 12/26/23 06:00 12/26/23 06:00
Cardiovascular:: Regular rate and rhythm
Respiratory:: Bilateral: CTA
Lung Excursion:: Normal
Abdomen:: Nontender and Soft
Extremity Edema:: +1: Bilateral: (trece (erythematous))
Carrillo Catheter: No
Other Findings::
Tunneled IJ catheter
--- NOTE | 2023-12-26 09:05 | W.PN.ID1 ---
Date of Service
Date of Service: December 26, 2023
Today's Communication
- for PASCALE in the AM
- start meropenem, stopped zosyn
- after HD saturday suggest removal of HD cath and line holiday given isolation of MDRO
- follow clinically
Assessment / Plan
ESBL Ecoli Bacteremia
ESRD on HD via HD catheter
Anasarca
Epilepsy
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
MDRO infection
- 12/23 blood cultures ESBL E coli
- 12/24 blood cultures NGTD
- limited abd US to confirmed no drainable pocket of ascites
- CXR and CT a/p without definite source - stercoral colitis noted - on lactulose and BM recorded
- straight cath yielded no urine
- LLE: chronic venous stasis dermatitis - unlikely to be the source
- TTE: MV vegetation again seen - increased in size from ~[id number] to ~[id number]
- agree with PASCALE tomorrow
- start meropenem, stopped zosyn
- after HD saturday suggest removal of HD cath and line holiday given isolation of MDRO
- follow clinically
Chief Complaint
-: Bacteremia
Subjective / Review of Systems
fever appears to have resolved
BP stable without pressors
mental status clear
no abdominal pain or lower extremity pain
reports legs are at her baseline
no tenderness over the HD cath
TTE: now with severe MR, previous vegetation is again IDd
Vital Signs / Physical Exam
Vital Signs
Vital Signs
Temp Pulse Resp BP Pulse Ox
98.2 F 71 14 126/66 97
12/26/23 07:22 12/26/23 06:00 12/26/23 06:00 12/26/23 06:00 12/26/23 06:00
Physical Exam
Constitutional: No Acute Distress and Chronically Ill
Cardiovascular: Regular Rate and S1/S2; Negative Murmur or Rub
Pulmonary: Clear and Symmetric; Negative Wheezes or Rales
Gastrointestinal: Soft, Non Tender, Non Distended and Normal Bowel Sounds
Skin: Warm and Dry; Negative Rash or Jaundice
Lines: HD Cath
Objective Data
Lab Data
Lab Results
12/26/23 04:15
12/25/23 04:53
Estimated Creat Clear 8 ml/min 12/25/23 04:53
Lactic Acid 1.9 mmol/L (0.7-2.0) 12/25/23 04:53
Total Bilirubin 1.1 mg/dl (0.2-1.3) 12/25/23 04:53
AST 46 U/L (14-36) H 12/25/23 04:53
ALT 23 U/L (0-35) 12/25/23 04:53
Alkaline Phosphatase 122 U/L (38-126) 12/25/23 04:53
Most recent labs reviewed.
lactic acidosis cleared last level 1.9
ammonia 67
12/24 Abd US: no ascites
12/25 TTE: severe MR: progression of size
Organism 1 Escherichia coli - ESBL
1. Escherichia coli - ESBL
M.I.C. RX
--------- ---
Amoxicillin/Potas. Clavulanate <=8/4 S
Ampicillin >16 R
Ampicillin/Sulbactam 8/4 S
Aztreonam >16 R
Cefazolin >16 R
Cefepime >16 R
Ceftazidime >16 R
Ceftriaxone >2 R
Ertapenem <=0.5 S
Ciprofloxacin >2 R
Gentamicin <=2 S
Meropenem <=1 S
Piperacillin/Tazobactam <=8 S
Tetracycline <=4 S
Tobramycin <=2 S
Trimethoprim/Sulfamethoxazole >2/38 R
Micro Results:
12/24/23 08:37 Blood Culture - Final
Blood/Venous Escherichia coli - ESBL
Gram Stain - Final
12/24/23 08:37 Blood Culture - Final
Blood/Venous Escherichia coli - ESBL
Gram Stain - Final
12/24/23 17:53 MRSA Screen - Final
Nose No Methicillin Resistant Staphylococcus aureus isolated.
12/25/23 13:46 Blood Culture - Pending
Blood/Venous
12/25/23 13:06 Blood Culture - Pending
Blood/Venous
12/24/23 10:41 Influenza Types A & B ([facility]) - Final
Nasal Swab Negative for Influenza A & B, NAAT
Negative results must be combined with clinical observations
and patient history.
Nucleic Acid Amplification test (NAAT)performed on the
[employer] platform.
--- NOTE | 2023-12-26 11:10 | W.PN.HOSP.TC ---
Today's Communication/Plan
-
Await repeat cultures
Continue antibiotics
Change Keppra to oral
Assessment / Plan
Assessment / Plan
Gen-awake, alert, NAD
HEENT-NC, AT, anicteric, clear oral mm
Neck-supple
CV-reg, no M, +S1/S2
Lungs-clear B/L
Abd-soft, NT, ND
Ext-left lower extremity lymphedema, erythema
Musculoskeletal-no cyanosis, clubbing
Skin-warm and dry, bilateral lower extremity hyperpigmentation
Neuro-grossly non-focal
Psych-calm, cooperative
Acute TME -likely due to sepsis. Mental status improving. Doubt hepatic encephalopathy, continue lactulose. Mental status much improved and approaching baseline now. Confirmed by family at the bedside.
E. coli sepsis - source unclear but differential diagnosis includes bacteremia due to dialysis catheter, gut translocation. Doubt [employer] infection. CT abdomen/pelvis without obvious source of infection. Chest x-ray with small right pleural effusion,
adjacent atelectasis. Blood culture positive for gram-negative bacilli. Doubt urinary tract infection. No urine noted on bladder scan and no urine obtained via straight cath.
Continue IV Zosyn, culture sensitivity noted. ID following. Blood culture through dialysis catheter and peripheral culture pending.
Lactic acidosis likely due to sepsis. Leukocytosis resolved. Afebrile.
COVID-negative, influenza negative.
Left lower extremity cellulitis -with chronic underlying lymphedema. Doppler ultrasound negative for DVT. Cellulitis resolved. Legs are looking back to baseline with bilateral lower extremity chronic venous stasis dermatitis changes.
ESRD on HD -Saturday/Saturday/Saturday. Nephrology following.
Mild L1 vertebral compression deformity -noted on CT. New compared to prior CT of September 2022.
DM 2 without hyperglycemia -she is on glargine insulin 5 units at bedtime, NovoLog insulin sliding scale in the halfway. Glucose 91 this morning. Hemoglobin A1c unreliable in the setting of chronic anemia. Currently on Lantus insulin 5 units
at bedtime, low resistance aspart scale.
Alcoholic cirrhosis -continue lactulose, has had 2 bowel movements so far today.
Epilepsy -continue Keppra, will change to oral.
Essential hypertension -stable.
Acute on chronic anemia -hemoglobin stable and at baseline, 7.9 today. Confirmed baseline hemoglobin with her halfway. Erythropoietin stimulating agent to continue, nephrology to adjust dose.
HCV
Chronic thrombocytopenia -likely due to cirrhosis, splenic sequestration.
Chronic pain syndrome/chronic opiate dependence -on chronic fentanyl patch.
Functional paraparesis -chronic bilateral lower extremity weakness and ambulatory dysfunction. At baseline is able to transfer from wheelchair to commode but does not ambulate.
Full code
Dispo - back to halfway when medically stable.
Family updated at the bedside.
Anticipated Discharge: 24 - 48 hours
Subjective/Interval History
-
Date of Service: December 26, 2023
Patient seen and examined. Family at the bedside. She has no complaints.
Objective Data
-
Labs:
Laboratory Results
12/26/23
04:15
WBC 5.0
Hgb 7.9 L
Hct 23.6 L
Plt Count 43 L D
Vital Signs:
Vital Signs
Temp Pulse Resp BP Pulse Ox
98.6 F 72 18 117/107 99
12/26/23 10:38 12/26/23 10:00 12/26/23 10:00 12/26/23 10:00 12/26/23 08:00
I&O
12/25/23 12/26/23 12/27/23
06:59 06:59 06:59
Intake Total 1377 / 1377 50 / 50
Balance 1377 / 1377 50 / 50
Review of Systems
-
History Source: Patient
All other systems: Reviewed and negative
[2023-12-26 11:54] LABS: Glucose - Point of Care 157 mg/dl (70-99)
[2023-12-26] MEDS: NOVOLOG FLEXPEN-LOW RESISTANCE 1 UNITS SC ×2 (12:19→17:36)
--- NOTE | 2023-12-26 13:56 | CON.CAR ---
Addendum entered and electronically signed by Teo Corona MD 12/26/23 15:24:
I saw and examined the patient.
The EQUINE SCIENCE INSTRUCTOR's note was reviewed and I agree with the note.
Comment: 63 yo female with etoh cirrhosis, CVA, IDDM, ESRD on HD, sepsis, HTN, epilepsy, thrombocytopenia, and chronic pain, who presents to the ER with change in mental status from home. She is admitted to the hospitalist service. Her echo is
concerning for large vegetation on the MV possible leading to destruction and resultant severe MR. This is new from just a year ago. We discussed PASCALE for further evaluation and she is agreeable.
- PASCALE tomorrow
- Abx per ID
- Primary reed or wind instrument repairer is Dr Brenda AMANDA
Original Note:
Consultation
Consultation Request
Date/Time Consultation Requested: 12/26/23 12:30p
Date/Time Consultation Performed: 12/26/23 1:30p
Requesting Provider: Dr. Aragon
Performing Provider: IRVIN Smith for Dr. Corona
Reason for Consultation: abnormal echo
Medical History
-
Chief Complaint: change in mental status
History of Present Illness:
Ms. Brooks is a 63 yo female with etoh cirrhosis, CVA, IDDM, ESRD on HD, sepsis, HTN, epilepsy, thrombocytopenia, and chronic pain, who presents to the ER with change in mental status from home. She is admitted to the hospitalist service. She
had an echo 12/26/23 that showed EF 60-65%, with mobile echodensity on posterior leaflet of MV likely vegetation measuring 2.1 cm x 2.3 cm, and severe MR. We are consulted for abnormal echo. She denies any cardiac symptoms currently. She is being
treated with IV antibiotics for E.coli sepsis from unclear source.
Past Medical History
Past Medical History: Other (as above)
Social History
Tobacco: Non-Smoker
Alcohol: None
Living: [facility]
Family History
Family History: Reviewed & Not Pertinent
Allergies / Home Medications
Allergy/AdvReac Type Severity Reaction Status Date / Time
No Known Allergies Allergy Verified 11/02/22 15:04
�Medication �Instructions �Recorded �Confirmed �Type
levetiracetam 250 mg tablet 250 mg PO BID Seizures 02/01/20 12/24/23 History
bisacodyl 10 mg rectal suppository 10 mg UT DAILYPRN PRN CONSTIPATION 04/26/20 12/24/23 History
(OneLAX Bisacodyl)
lactulose 20 gram/30 mL oral 30 ml PO QID Liver disease 09/25/21 12/24/23 History
solution
ondansetron HCl 4 mg tablet 4 mg PO Q6HPRN PRN NAUSEA 09/25/21 12/24/23 History
latanoprost 0.005 % eye drops 1 drp BOTH EYES HS Eye condition 05/17/22 12/24/23 History
midodrine 5 mg tablet 5 mg PO MOWEFR before dialysis 05/17/22 12/24/23 History
sevelamer carbonate 800 mg tablet 800 mg PO AC Kidney Disease 05/17/22 12/24/23 History
(Renvela)
timolol maleate 0.5 % eye drops 1 drp BOTH EYES DAILY Eye condition 05/17/22 12/24/23 History
midodrine 5 mg tablet 5 mg PO Q8HPRN PRN SBP < 90 mmHg 05/28/22 12/24/23 Rx
#0 tabs
famotidine 20 mg tablet (Pepcid) 10 mg PO Q48H Gastrointestinal 08/23/22 12/24/23 History
Issue
fentanyl 12 mcg/hr transdermal 1 patch transdermal Q72H severe 08/23/22 12/24/23 History
patch Pain
insulin aspart U-100 100 unit/mL 1 sliding scale dose SC AC Diabetes 08/23/22 12/24/23 History
(3 mL) subcutaneous pen (Novolog
FlexPen U-100 Insulin aspart)
insulin glargine 100 unit/mL 5 unit SC HS Diabetes 08/23/22 12/24/23 History
subcutaneous solution (Lantus
U-100 Insulin)
trolamine salicylate 10 % topical 1 applic topical DAILY left upper 08/23/22 12/24/23 History
cream (Aspercreme) back leg
vitamin B complex and vitamin C 1 cap PO DAILY Supplement 09/20/22 12/24/23 History
no.20-folic acid 1 mg capsule
(Triphrocaps)
amlodipine 5 mg tablet (Norvasc) 5 mg PO HS Blood Pressure 11/02/22 12/24/23 History
acetaminophen 325 mg tablet 650 mg PO Q6HPRN PRN mild pain 12/24/23 12/24/23 History
(Tylenol)
mirtazapine 7.5 mg tablet 7.5 mg PO HS Mental Health/Anxiety 12/24/23 12/24/23 History
Review of Systems
-
History Source: Patient
All other systems: Negative unless noted
Physical Exam
Vital Signs
Temp Pulse Resp BP Pulse Ox
98.6 F 72 15 100/57 99
12/26/23 10:38 12/26/23 12:30 12/26/23 12:30 12/26/23 12:30 12/26/23 12:48
Lab Results
12/26/23 04:15
12/25/23 04:53
Physical Exam
General: Well Developed and No Apparent Distress
HEENT: Normocephalic and Anicteric
Respiratory: Clear and Non Labored Respirations
Cardiac: S1/S2, Regular Rhythm and Murmur (2/6 RAFAEL)
Breast: Deferred by me
GI: Soft and Normal Bowel Sounds
Rectal: Deferred by Provider
Musculoskeletal: No Clubbing and No Cyanosis
Skin: Warm and Dry
Neuro: Awake and Alert
Psych: Calm
Impression / Plan
-
Abnormal echo - echo 12/26/23 with EF 60-65%, with mobile echodensity on posterior leaflet of MV likely vegetation measuring 2.1 cm x 2.3 cm, and severe MR.
- currently asymptomatic.
- plan for PASCALE tomorrow for further evaluation of MV vegetation and severe MR.
- volume managed with HD.
Sepsis - unknown source, E.coli.
- management per ID, hospitalist.
HTN - stable.
- on midodrine with HD.
ESRD - on HD, per nephrology.
- M,W,F HD.
- right upper chest HD cath.
Anemia - acute on chronic.
- with chronic thrombocytopenia.
- per hospitalist.
Epilepsy - stable on Keppra.
TME - acute, secondary to sepsis likely.
- lactulose.
- improving.
Data Reviewed
-
EKG: Tracing Personally Visualized and interpreted (NSR with sinus arrhythmia 79 bpm)
Medical Tests (Nuc Med, Echo etc): Report Reviewed by me (echo 12/26/23 that showed EF 60-65%, with mobile echodensity on posterior leaflet of MV likely vegetation measuring 2.1 cm x 2.3 cm, and severe MR)
Labs: Labs Reviewed by me
Old Records: Reviewed
--- NOTE | 2023-12-26 14:57 | PN.CDI ---
CDI
- -
CDI:
Physician Documentation Request
Admit Date: 12/24/23 13:26
Dear Doctor Mahesh,
Patient admitted with sepsis.
12/23 Nursing skin assessment, 'Stage 1 sacral pressure injury, POA.'
Physician documentation of the type and location of wounds is required for compliant documentation. Based on the above clinical findings and your assessment, please provide the following in your progress note:
Type (etiology) of ulcer/wound:
- Pressure (decubitus) ulcer
- Other
- Unable to determine
For a pressure ulcer, please also include the stage* of the ulcer:
- Stage 1 - Skin intact, non-blanchable redness
- Stage 2 - Partial thickness loss of dermis, includes intact or open blister
- Stage 3 - Full thickness tissue not including bone, tendon or muscle
- Stage 4 - Full thickness tissue loss, including exposed bone, tendon or muscle
- Unstageable - Full thickness loss in which the base of the ulcer is covered by slough (yellow, aden, gregorio, green or brown) and/or eschar (aden, brown or black) in the wound bed.
- Unable to determine
Use of terms such as suspected, likely, concern for, or probable (associated with a specific diagnosis that is being evaluated, monitored, or treated as if it exists) are acceptable and can be coded in the inpatient setting, when documented at the
time of discharge.
Thank you,
Zaida GREER,RN,CCDS
CDI Specialist
Available via [place] text
Please use your independent medical judgment in providing your response.
*Source: National Pressure Ulcer Advisory Panel (NPUAP)
[2023-12-26] MEDS: DUPHALAC/CHRONULAC PO (15:35)
--- NOTE | 2023-12-26 16:11 | CM ---
Addendum entered by Adilene Saldaña RN 12/26/23 16:27:
Additionally, Patient seen by wound care nurse.
Original Note:
Patient from [facility] with Hx ESRD on HD, Etoh cirrhosis. Plan PASCALE tomorrow. Per MD notes, Mental status improving, additional cultures pending to determine souce of infection. Room air. Receiving IV Abx.
PT Eval 12/25; heavy assist of 2, May benefit from PT services upon her return to [facility].
OT Eval; assist of 2, recommend skilled rehab.
Plan return to [facility] when medically ready.
[2023-12-26 16:18] LABS: Glucose - Point of Care 190 mg/dl (70-99)
[2023-12-26] MEDS: PEPCID 10 MG PO (17:35)
[2023-12-26] MEDS: KEPPRA 250 MG PO (19:37)
[2023-12-26] MEDS: REMERON 7.5 MG PO (22:10)
[2023-12-26] MEDS: MERREM 500 MG IV (22:10)
[2023-12-26] MEDS: STERILE WATER FOR INJECTION 10 ML IV (22:10)
[2023-12-26 22:18] LABS: Glucose - Point of Care 209 mg/dl (70-99)
[2023-12-26] MEDS: XALATAN OPHTHALMIC SOLUTION 1 DROP BOTH EYES (22:18)
[2023-12-27] VITALS (27 sets, daily range): BP systolic 91–151; BP diastolic 41–98; BMI 24.5
[2023-12-27] MEDS: NOVOLOG FLEXPEN-LOW RESISTANCE 1 UNITS SC ×2 (00:16→05:07)
[2023-12-27 00:26] LABS: Glucose - Point of Care 189 mg/dl (70-99)
--- NOTE | 2023-12-27 01:44 | PTCARENOTE ---
Pt AAOx3, but drowsy, forgetful at times. Inc of loose stools, as documented. Nelia area red from frequent stool, barrier cream applied liberally. Pt denies pain at this time. Call sandoval within reach. Bed alarm in place for pt safety, but pt has not
made any attempts to get OOB.
[2023-12-27 05:18] LABS: Glucose - Point of Care 162 mg/dl (70-99)
[2023-12-27] MEDS: DESENEX/MITRAZOL/ZEASORB 1 APPLIC TOPICAL ×2 (07:24→21:54)
[2023-12-27] MEDS: DUPHALAC/CHRONULAC PO (07:24)
[2023-12-27] MEDS: KEPPRA 250 MG PO ×2 (07:24→21:54)
[2023-12-27] MEDS: RENVELA PO (07:24)
[2023-12-27] MEDS: ProAmatine 5 MG PO (07:25)
[2023-12-27] MEDS: TIMOPTIC 0.5% OPHTHALMIC SOLUTION 1 DROP BOTH EYES (07:51)
[2023-12-27] MEDS: RETACRIT 12000 UNITS IV (08:37)
[2023-12-27 08:38] LABS: Carbon Dioxide 26 mmol/L (22-30); Chloride 101 mmol/L (98-107); Sodium 138 mmol/L (135-145)
[2023-12-27 08:39] LABS: Platelet Count 38 10^3/uL (130-400)
[2023-12-27 08:52] LABS: % Basophils 0.7 % (0-2); % Eosinophils 4.8 % (0-6); % Immature Granulocytes 2.2 % (0-0.5); % Lymphocytes 17.4 % (20.5-51.1); % Monocytes 14.8 % (1.7-9.3); % Neutrophils 60.1 % (42.2-75.2); Absolute Eosinophils 0.3 10^3/uL (0-0.7); Absolute Immature Granulocytes 0.1 10^3/uL (0-0.05); Absolute Monocytes 0.8 10^3/uL (0.1-0.6); Absolute Neutrophils 3.3 10^3/uL (1.4-6.5); Hematocrit 23.7 % (37.0-47.0); Hemoglobin 7.9 g/dL (12.0-16.0); Mean Corp Hgb Conc. 33.3 g/dL (33.0-37.0); Mean Corpuscular Volume 90.1 fL (81.0-99.0); Mean Platelet Volume 11.9 fL (7.4-10.4); Nucleated Red Blood Cells % 0 %; Red Blood Cell Count 2.63 10^6/uL (4.20-5.40); Red Cell Dist. Width 16.3 % (11.5-14.5); White Blood Cell Count 5.5 10^3/uL (4.8-10.8)
--- NOTE | 2023-12-27 08:57 | W.PN.NEPH.HD ---
Addendum entered and electronically signed by Adonay Nguyen MD 12/27/23 08:59:
Seen on HD. alert. VSS, access ok. no complaints
Original Note:
Progress Note - Hemodialysis
-
Date of Service: December 27, 2023
Duration: 30 minutes and 3 hours
Potassium Bath: 3
Calcium Bath: 2.5
Opti-Dialyzer: 160
Ultrafiltration: Other (1kg)
Blood Flow: 400
Heparin: no
EPO: [id number] units
--- NOTE | 2023-12-27 09:04 | W.PN.CD ---
Today's Communication / Plan
-
Abx per ID
Remains asymptomatic
Discussed with CT sx and they will see
Impression / Plan
-
A: 63 yo female with hx of ESRD on HD MWF, MV endocarditis, chronic anemia and thrombocytopenia, alcoholic cirrhosis, DM2, HTN, GERD, HTN, who presented wtih AMS and found to have E COli bactermia.
Abnormal echo - echo 12/26/23 with EF 60-65%, with mobile echodensity on posterior leaflet of MV likely vegetation measuring 2.1 cm x 2.3 cm, and severe MR.
- remains asymptomatic
- will try and obtain PASCALE Saturday if Plts are better
- CT surgery to see today
- volume managed with HD.
Sepsis - unknown source, E.coli.
- management per ID, hospitalist.
Hypotension
- on midodrine with HD.
ESRD - on HD, per nephrology.
- M,W,F HD.
- right upper chest HD cath.
Anemia - acute on chronic.
- with chronic thrombocytopenia.
- per hospitalist.
Epilepsy - stable on Keppra.
TME - acute, secondary to sepsis likely.
- lactulose.
- improving.
Physical Exam
Vital Signs/Labs
Vital Signs
Temp Pulse Resp BP Pulse Ox
97.5 F 72 16 151/69 94
12/27/23 07:30 12/27/23 06:00 12/27/23 06:00 12/27/23 04:00 12/27/23 06:00
12/26/23 12/27/23 12/28/23
06:59 06:59 06:59
Actual Weight 136 lb 7.458 oz 138 lb 7.205 oz
12/27/23 08:11
12/27/23 08:11
Physical Exam
Constitutional: No acute distress and Comfortable
EENT: Anicteric
Cardiovascular: Rhythm & rate is regular and Pedal edema is absent
Respiratory: Respiratory effort normal and Lungs clear to auscul.
GI: Soft
Neuro/Psych: Alert and Oriented
Data Reviewed
-
Date of Service: December 27, 2023
EKG: Tracing Personally Visualized and interpreted (sr)
Echo: Tracing Personally Visualized and interpreted and Report Reviewed by me
Labs: Labs Reviewed by me
--- NOTE | 2023-12-27 09:47 | W.PN.ID1 ---
Date of Service
Date of Service: December 27, 2023
Today's Communication
DC HD catheter today, cx tip.
Continue meropenem.
Assessment / Plan
ESBL Ecoli Bacteremia
ESRD on HD via HD catheter
Anasarca
Epilepsy
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
MDRO infection
- 12/23 blood cultures ESBL E coli
- 12/24 blood cultures NGTD
- limited abd US to confirmed no drainable pocket of ascites
- CXR and CT a/p without definite source - stercoral colitis noted - on lactulose and BM recorded
- straight cath yielded no urine
- LLE: chronic venous stasis dermatitis - unlikely to be the source
- TTE: MV vegetation again seen - increased in size from ~4jcr6pc to ~5wep1tr, severe MR
- PASCALE cancelled due to thrombocytopenia (cirrhosis)
- after HD today, dc HD cath and line holiday given isolation of MDRO
-continue meropenem (d2)
- follow clinically
Chief Complaint
-: Bacteremia
Subjective / Review of Systems
No abd pain. Had BM yesterday. She does not make urine.
Vital Signs / Physical Exam
Vital Signs
Vital Signs
Temp Pulse Resp BP Pulse Ox
97.5 F 72 16 151/69 94
12/27/23 07:30 12/27/23 06:00 12/27/23 06:00 12/27/23 04:00 12/27/23 06:00
Physical Exam
Constitutional: No Acute Distress
Cardiovascular: Regular Rate, S1/S2 and Murmur
Pulmonary: Clear
Gastrointestinal: Soft, Non Tender, Non Distended and Normal Bowel Sounds
Extremities: Negative Edema
Neurological: AO x 3
Objective Data
Lab Data
Lab Results
12/27/23 08:11
12/27/23 08:11
Estimated Creat Clear 8 ml/min 12/25/23 04:53
Lactic Acid 1.9 mmol/L (0.7-2.0) 12/25/23 04:53
Total Bilirubin 1.1 mg/dl (0.2-1.3) 12/25/23 04:53
AST 46 U/L (14-36) H 12/25/23 04:53
ALT 23 U/L (0-35) 12/25/23 04:53
Alkaline Phosphatase 122 U/L (38-126) 12/25/23 04:53
Most recent labs reviewed.
Micro Results:
12/25/23 13:46 Blood Culture - Preliminary
Blood/Venous No Growth in 24 hours- Final report to follow
12/25/23 13:06 Blood Culture - Preliminary
Blood/Venous No Growth in 24 hours- Final report to follow
12/24/23 08:37 Blood Culture - Final
Blood/Venous Escherichia coli - ESBL
Gram Stain - Final
12/24/23 08:37 Blood Culture - Final
Blood/Venous Escherichia coli - ESBL
Gram Stain - Final
12/24/23 17:53 MRSA Screen - Final
Nose No Methicillin Resistant Staphylococcus aureus isolated.
12/24/23 10:41 Influenza Types A & B ([facility]) - Final
Nasal Swab Negative for Influenza A & B, NAAT
Negative results must be combined with clinical observations
and patient history.
Nucleic Acid Amplification test (NAAT)performed on the
[employer] platform.
--- NOTE | 2023-12-27 10:05 | CONSULT.CT ---
Addendum entered and electronically signed by Pablo Garcia MD 12/28/23 09:08:
I saw and examined the patient.
The PA's note was reviewed and I agree with the note.
Comment:
Pt. of likely prohibitive risk of MV replacement given extensive comorbidities
Continue medical therapy
If pt. desires very high risk surgical intervention would recommend tertiary center transfer
Original Note:
Consultation
-
Date/Time Consultation Requested: 12/27/23
Date/Time Consultation Performed: 12/27/23
Requesting Provider: Chloe
Performing Provider: Mckenna Norton PA-C for Dr. Pablo Garcia
Reason for Consultation: MV endocarditis
Patient History
History of Present Illness
Pt is a 63y/oF who presented to the hospital with altered mental status & fevers. She has an extensive past medical history including MV endocarditis (MSSA) 05/2022 with completion of IV antibiotics 06/2022--at that time she was seen by CT surgery and
deemed not a surgical candidate due to ESRD and ESLD. She had an echo today which re-demonstrated an MV vegetation that looks increased in size from prior studies with now severe MR--previously mild to moderate. Blood cultures on admission + for
ESBL, most recent cultures are now negative x24hrs.
Past Medical History
Past Medical History: Other
Atrial Fib
CVA/TIA 08/2019
HTN
end-stage renal disease on hemodialysis
Thrombocytopenia
Alcoholic cirrhosis no alcohol since 2003
Left upper arm AV shunt revision September 2021, with excision 05/2022
COVID infection May 2019
seizure Disorder
Chronic anemia
Secondary hyperparathyroidism
GERD
Glaucoma
Depression
Ambulatory dysfunction uses walker at [facility]
Past Surgical History
Past Surgical History: Other
Hysterectomy
Left hip fracture
Left humeral fracture
Family History
Mother: N/A
Father: N/A
Social History
Alcohol: Former (former alcoholic, quit 2003)
Drug: None
Tobacco: Former Smoker
Living: [facility]
Employment: Disabled
Allergies
Allergy/AdvReac Type Severity Reaction Status Date / Time
No Known Allergies Allergy Verified 11/02/22 15:04
Home Medications
�Medication �Instructions �Recorded �Confirmed �Type
levetiracetam 250 mg tablet 250 mg PO BID Seizures 02/01/20 12/24/23 History
bisacodyl 10 mg rectal suppository 10 mg MS DAILYPRN PRN CONSTIPATION 04/26/20 12/24/23 History
(OneLAX Bisacodyl)
lactulose 20 gram/30 mL oral 30 ml PO QID Liver disease 09/25/21 12/24/23 History
solution
ondansetron HCl 4 mg tablet 4 mg PO Q6HPRN PRN NAUSEA 09/25/21 12/24/23 History
latanoprost 0.005 % eye drops 1 drp BOTH EYES HS Eye condition 05/17/22 12/24/23 History
midodrine 5 mg tablet 5 mg PO MOWEFR before dialysis 05/17/22 12/24/23 History
sevelamer carbonate 800 mg tablet 800 mg PO AC Kidney Disease 05/17/22 12/24/23 History
(Renvela)
timolol maleate 0.5 % eye drops 1 drp BOTH EYES DAILY Eye condition 05/17/22 12/24/23 History
midodrine 5 mg tablet 5 mg PO Q8HPRN PRN SBP < 90 mmHg 05/28/22 12/24/23 Rx
#0 tabs
famotidine 20 mg tablet (Pepcid) 10 mg PO Q48H Gastrointestinal 08/23/22 12/24/23 History
Issue
fentanyl 12 mcg/hr transdermal 1 patch transdermal Q72H severe 08/23/22 12/24/23 History
patch Pain
insulin aspart U-100 100 unit/mL 1 sliding scale dose SC AC Diabetes 08/23/22 12/24/23 History
(3 mL) subcutaneous pen (Novolog
FlexPen U-100 Insulin aspart)
insulin glargine 100 unit/mL 5 unit SC HS Diabetes 08/23/22 12/24/23 History
subcutaneous solution (Lantus
U-100 Insulin)
trolamine salicylate 10 % topical 1 applic topical DAILY left upper 08/23/22 12/24/23 History
cream (Aspercreme) back leg
vitamin B complex and vitamin C 1 cap PO DAILY Supplement 09/20/22 12/24/23 History
no.20-folic acid 1 mg capsule
(Triphrocaps)
amlodipine 5 mg tablet (Norvasc) 5 mg PO HS Blood Pressure 11/02/22 12/24/23 History
acetaminophen 325 mg tablet 650 mg PO Q6HPRN PRN mild pain 12/24/23 12/24/23 History
(Tylenol)
mirtazapine 7.5 mg tablet 7.5 mg PO HS Mental Health/Anxiety 12/24/23 12/24/23 History
Review of Systems
-
History Source: Patient and Family (sister present at bedside)
General: Reports Fever and Fatigue
HEENT: Reports No Symptoms
Respiratory: Reports No Symptoms
Cardiac: Reports No Symptoms
Abdomen/GI: Reports No Symptoms
: Reports No Symptoms
Skin: Reports No Symptoms
Neurological: Reports No Symptoms
Vascular: Reports No Symptoms
Physical Exam
Vital Signs
Temp 97.5 F 12/27/23 07:30
Temp route: Oral 12/27/23 07:30
Pulse 72 12/27/23 06:00
Rhythm: Normal sinus rhythm 12/27/23 00:43
With- PAC's, Prolonged QT interval 12/27/23 00:43
Resp Rate 16 12/27/23 06:00
Blood pressure 151/69 12/27/23 04:00
Blood pressure extremity used: Right upper arm 12/24/23 07:23
Position: Sitting 12/24/23 07:23
MAP (cuff-Neli Monitor) 90 12/27/23 04:00
SaO2 94 12/27/23 06:00
Oxygen Mode of Delivery Room air 12/27/23 00:43
Pulse Ox at Rest 98 12/26/23 11:25
Acceptable pain level during hospitalization? 0 12/24/23 08:14
Can the patient verbally communicate their pain? Yes 12/27/23 00:43
Actual Weight 62.8 kg 12/27/23 04:09
Body Mass Index (BMI) 24.5 12/27/23 04:09
Supine- Blood Pressure 132/57 12/26/23 11:25
Supine- Pulse 68 12/26/23 11:25
Labs
12/27/23 08:11
12/27/23 08:11
Hemoglobin A1c 5.7 % (4.0-5.6) H 12/25/23 04:53
Urinalysis
Urine Color Cancelled 12/24/23 07:36
Urine Clarity Cancelled 12/24/23 07:36
Urine pH Cancelled 12/24/23 07:36
Ur Specific [place] Cancelled 12/24/23 07:36
Urine Ketones Cancelled 12/24/23 07:36
Ur Occult Blood Reflex Cancelled 12/24/23 07:36
Urine Bilirubin Cancelled 12/24/23 07:36
Leukocyte Esterase Rfl Cancelled 12/24/23 07:36
Urine Glucose Cancelled 12/24/23 07:36
Urine Albumin (Reflex) Cancelled 12/24/23 07:36
Exam
General: No Apparent Distress, Comfortable and Other (frail appearing)
Neck: Trachea Midline; Negative Mass
Respiratory: Clear; Negative Wheezes or Crackles
Cardiac: Regular Rhythm; Negative Murmur
GI: Soft and Non Tender
Extremities: Lower Level Edema (trace) and Other (stasis changes to bilateral LE)
Psych: Calm
Assessment / Plan
-
MV endocarditis
severe MR
+ESBL bacteremia
- Unfortunately patient's medical comorbidities preclude her from being a viable surgical candidate--STS risk estimates her at least 13% risk of mortality with isolated MVrepair (23.8% with MVreplacement)--patient has not had cardiac cath to
determine need for concomitant CABG. STS risk calculator also underestimates this patients very limited potential for rehab from an operation as well, as she is wheelchair bound x at least 2-3 years and resides at a [facility] at baseline. Thank
you for the consultation, eval by attending to follow.
Data Reviewed
-
Echo: Discussed with Physician
--- NOTE | 2023-12-27 10:56 | CM ---
S/p HD today.
HD catheter to be d/c per chart.
Continues on IV anbx.
PT/OT following.
Patient is LTC at [facility].
Plan: Back to [facility] LTC once medically stable
[facility]
Report# [phone]
[2023-12-27] MEDS: HEPARIN 3900 UNITS INTRACATH (11:00)
--- NOTE | 2023-12-27 12:01 | W.PN.HOSP.TC ---
Addendum entered and electronically signed by Juan Aragon DO 12/27/23 13:52:
Stage 1 sacral pressure injury, POA
Original Note:
Today's Communication/Plan
-
DC HD catheter
Assessment / Plan
Assessment / Plan
Gen-awake, alert, NAD
HEENT-NC, AT, anicteric, clear oral mm
Neck-supple
CV-reg, no M, +S1/S2
Lungs-clear B/L
Abd-soft, NT, ND
Ext-left lower extremity lymphedema, erythema
Musculoskeletal-no cyanosis, clubbing
Skin-warm and dry, bilateral lower extremity hyperpigmentation
Neuro-grossly non-focal
Psych-calm, cooperative
Acute TME -likely due to sepsis. Acute TME resolved.
ESBL E. coli sepsis - source possibly due to HD catheter. Repeat blood cx negative. IV meropenem per ID. Dialysis catheter to come out today, line holiday over the weekend. Will need new catheter on Saturday.
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 MV vegetation notably larger on TTE compared to previous Echo, now measuring 2.1 x 2.3 cm. Severe MR noted. PASCALE aborted today due to thrombocytopenia.
CT surgery consulted for opinion regarding potential MVR.
Left lower extremity cellulitis -with chronic underlying lymphedema. Doppler ultrasound negative for DVT. Cellulitis resolved. Legs are looking back to baseline with bilateral lower extremity chronic venous stasis dermatitis changes.
ESRD on HD -Saturday/Saturday/Saturday. Nephrology following.
Hypokalemia - should correct with HD today.
Mild L1 vertebral compression deformity -noted on CT. New compared to prior CT of September 2022.
DM 2 without hyperglycemia -she is on glargine insulin 5 units at bedtime, NovoLog insulin sliding scale in the [facility]. Glucose 162 this morning. Hemoglobin A1c unreliable in the setting of chronic anemia. Currently on Lantus insulin 5
units at bedtime, low resistance aspart scale.
Alcoholic cirrhosis -continue lactulose, has had 2 bowel movements so far today.
Epilepsy -continue Keppra, will change to oral.
Essential hypertension -stable.
Acute on chronic anemia -hemoglobin stable and at baseline, 7.9 today. Confirmed baseline hemoglobin with her pen[facility]iary. Erythropoietin stimulating agent to continue, nephrology to adjust dose.
HCV
Chronic thrombocytopenia -likely due to cirrhosis, splenic sequestration.
Chronic pain syndrome/chronic opiate dependence -on chronic fentanyl patch.
Functional paraparesis -chronic bilateral lower extremity weakness and ambulatory dysfunction. At baseline is able to transfer from wheelchair to commode but does not ambulate.
Full code
Dispo - back to pen[facility]iary when medically stable.
I spoke with patient's sister Carissa on the phone, provided update. All questions answered.
Anticipated Discharge: > 48 hours
Subjective/Interval History
-
Date of Service: December 27, 2023
Patient seen/examined. No complaints.
Objective Data
-
Labs:
Laboratory Results
12/27/23
08:11
WBC 5.5
Hgb 7.9 L
Hct 23.7 L
Plt Count 38 L
Sodium 138
Potassium 3.0 L D
Chloride 101
Carbon Dioxide 26
Vital Signs:
Vital Signs
Temp Pulse Resp BP Pulse Ox
97.7 F 72 16 151/69 94
12/27/23 11:36 12/27/23 06:00 12/27/23 06:00 12/27/23 04:00 12/27/23 06:00
I&O
12/26/23 12/27/23 12/28/23
06:59 06:59 06:59
Intake Total 50 / 50
Balance 50 / 50
Review of Systems
-
History Source: Patient
All other systems: Reviewed and negative
[2023-12-27] MEDS: NOVOLOG FLEXPEN-LOW RESISTANCE SC (12:07)
[2023-12-27 12:17] LABS: Glucose - Point of Care 97 mg/dl (70-99)
[2023-12-27] MEDS: RENVELA 800 MG PO ×2 (13:00→16:58)
[2023-12-27] MEDS: DUPHALAC/CHRONULAC 20 GRAMS PO ×3 (13:00→21:54)
--- NOTE | 2023-12-27 14:15 | PN.IRAD.UPD ---
Update Note - IRAD
- -
Cleaned right sided Tunn HD catheter with chloraprep and removed catheter. Site dressed with gauze and a primapore. Tip of catheter sent for culture.
Bakari Walden RT(R)()
[2023-12-27 16:41] LABS: Glucose - Point of Care 269 mg/dl (70-99)
[2023-12-27] MEDS: DURAGESIC 12 MCG/HR PATCH 1 PATCH TRANSDERM (16:59)
[2023-12-27] MEDS: NOVOLOG FLEXPEN-LOW RESISTANCE 3 UNITS SC (17:25)
--- NOTE | 2023-12-27 18:51 | PTCARENOTE ---
pt had hemodialysis this am. chandan cancelled by cardiology. right chest HD cath removed by IRAd. dressing over site c.d.I
[2023-12-27 21:37] LABS: Glucose - Point of Care 268 mg/dl (70-99)
[2023-12-27] MEDS: REMERON 7.5 MG PO (21:54)
[2023-12-27] MEDS: MERREM 500 MG IV (21:54)
[2023-12-27] MEDS: STERILE WATER FOR INJECTION 10 ML IV (21:54)
[2023-12-27] MEDS: LANTUS 0.05 UNITS SC (21:55)
[2023-12-27] MEDS: XALATAN OPHTHALMIC SOLUTION 1 DROP BOTH EYES (21:55)
[2023-12-28] VITALS (13 sets, daily range): BP systolic 70–135; BP diastolic 40–112; BMI 24.3
[2023-12-28] MEDS: NOVOLOG FLEXPEN-LOW RESISTANCE SC ×4 (03:10→16:57)
--- NOTE | 2023-12-28 04:12 | PTCARENOTE ---
Caring for patient overnight. aaox3 but forgetful. afebrile, VSS. Q2T. ivabx. NSR, remains RA. NO issues overnight, Will continue to monitor.
[2023-12-28 06:06] LABS: % Basophils 0.6 % (0-2); % Eosinophils 4.2 % (0-6); % Immature Granulocytes 1.8 % (0-0.5); % Lymphocytes 20.6 % (20.5-51.1); % Monocytes 14.2 % (1.7-9.3); % Neutrophils 58.6 % (42.2-75.2); Absolute Eosinophils 0.3 10^3/uL (0-0.7); Absolute Immature Granulocytes 0.1 10^3/uL (0-0.05); Absolute Lymphocytes 1.4 10^3/uL (1.2-3.4); Hematocrit 25.8 % (37.0-47.0); Hemoglobin 8.5 g/dL (12.0-16.0); Mean Corp Hgb Conc. 32.9 g/dL (33.0-37.0); Mean Corpuscular Hgb 30.5 pg (27.0-31.0); Mean Corpuscular Volume 92.5 fL (81.0-99.0); Mean Platelet Volume 11.3 fL (7.4-10.4); Nucleated Red Blood Cells % 0 %; Platelet Count 40 10^3/uL (130-400); Red Blood Cell Count 2.79 10^6/uL (4.20-5.40); Red Cell Dist. Width 16.4 % (11.5-14.5); White Blood Cell Count 6.8 10^3/uL (4.8-10.8)
[2023-12-28 06:27] LABS: ALT (SGPT) 30 U/L (0-35); AST (SGOT) 58 U/L (14-36); Albumin 2.3 g/dl (3.5-5.0); Alkaline Phosphatase 156 U/L (38-126); Blood Urea Nitrogen 23 mg/dl (7-17); Calcium 8.1 mg/dl (8.4-10.2); Carbon Dioxide 28 mmol/L (22-30); Chloride 103 mmol/L (98-107); Estimated Creatinine Clearance 15 ml/min; Glucose 144 mg/dl (70-99); Potassium 3.3 mmol/L (3.5-5.1); Sodium 139 mmol/L (135-145); Total Protein 5.3 g/dl (6.3-8.2); eGFR 15.58
[2023-12-28 07:35] LABS: Glucose - Point of Care 123 mg/dl (70-99)
--- NOTE | 2023-12-28 08:24 | W.PN.HOSP.TC ---
Today's Communication/Plan
-
Add oral potassium
Add mealtime insulin
Assessment / Plan
Assessment / Plan
Gen-awake, alert, NAD
HEENT-NC, AT, anicteric, clear oral mm
Neck-supple
CV-reg, no M, +S1/S2
Lungs-clear B/L
Abd-soft, NT, ND
Ext-left lower extremity lymphedema, erythema
Musculoskeletal-no cyanosis, clubbing
Skin-warm and dry, bilateral lower extremity hyperpigmentation
Neuro-grossly non-focal
Psych-calm, cooperative
Acute TME -likely due to sepsis. Acute TME resolved.
ESBL E. coli sepsis - source possibly due to HD catheter. Repeat blood cx negative. IV meropenem per ID. Dialysis catheter removed 12/26 after dialysis. Will need new catheter on Saturday.
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 MV vegetation notably larger on TTE compared to previous Echo, now measuring 2.1 x 2.3 cm. Severe MR noted. PASCALE aborted today due to thrombocytopenia.
CT surgery consulted for opinion regarding potential MVR, deemed not to be a good surgical candidate due to multiple comorbidities.
Left lower extremity cellulitis -with chronic underlying lymphedema. Doppler ultrasound negative for DVT. Cellulitis resolved. Legs are looking back to baseline with bilateral lower extremity chronic venous stasis dermatitis changes.
ESRD on HD -Saturday/Saturday/Saturday. Nephrology following.
Hypokalemia -3.3 today. Start oral repletion.
Mild L1 vertebral compression deformity -noted on CT. New compared to prior CT of September 2022.
DM 2 without hyperglycemia -she is on glargine insulin 5 units at bedtime, NovoLog insulin sliding scale in the [facility]. Glucose 144 this morning. Hemoglobin A1c unreliable in the setting of chronic anemia. Currently on Lantus insulin 5
units at bedtime, low resistance aspart scale. Daytime glucoses over 200. Add aspart 4 units AC. Discussed with patient. Appetite is good.
Alcoholic cirrhosis -continue lactulose, has had 2 bowel movements so far today.
Epilepsy -continue Keppra, will change to oral.
Essential hypertension -stable.
Acute on chronic anemia -hemoglobin stable and at baseline, 8.5 today. Confirmed baseline hemoglobin with her [facility]. Erythropoietin stimulating agent to continue, nephrology to adjust dose.
HCV
Chronic thrombocytopenia -likely due to cirrhosis, splenic sequestration.
Chronic pain syndrome/chronic opiate dependence -on chronic fentanyl patch.
Functional paraparesis -chronic bilateral lower extremity weakness and ambulatory dysfunction. At baseline is able to transfer from wheelchair to commode but does not ambulate.
Full code
Dispo - back to [facility] when medically stable.
Anticipated Discharge: > 48 hours
Subjective/Interval History
-
Date of Service: December 28, 2023
Patient seen and examined. No complaints.
Objective Data
-
Labs:
Laboratory Results
12/28/23
05:39
WBC 6.8
Hgb 8.5 L
Hct 25.8 L
Plt Count 40 L
Sodium 139
Potassium 3.3 L
Chloride 103
Carbon Dioxide 28
BUN 23 H
Creatinine 3.2 H
Glucose 144 H
Calcium 8.1 L
Total Bilirubin 1.0
AST 58 H
ALT 30
Alkaline Phosphatase 156 H
Vital Signs:
Vital Signs
Temp Pulse Resp BP Pulse Ox
97.8 F 74 22 129/55 94
12/28/23 03:07 12/28/23 06:00 12/28/23 06:00 12/28/23 06:00 12/28/23 06:00
I&O
12/27/23 12/28/23 12/29/23
06:59 06:59 06:59
Intake Total 720 / 720
Balance 720 / 720
Review of Systems
-
History Source: Patient
All other systems: Reviewed and negative
[2023-12-28] MEDS: NOVOLOG FLEXPEN 4 UNITS SC ×3 (09:08→18:14)
[2023-12-28] MEDS: KCL 20 MEQ PO (09:10)
[2023-12-28] MEDS: KEPPRA 250 MG PO ×2 (09:10→20:54)
[2023-12-28] MEDS: DUPHALAC/CHRONULAC 20 GRAMS PO ×4 (09:10→20:54)
[2023-12-28] MEDS: RENVELA 800 MG PO ×3 (09:10→16:56)
[2023-12-28] MEDS: DESENEX/MITRAZOL/ZEASORB 1 APPLIC TOPICAL ×2 (09:11→20:54)
[2023-12-28] MEDS: TIMOPTIC 0.5% OPHTHALMIC SOLUTION 1 DROP BOTH EYES (09:13)
--- NOTE | 2023-12-28 09:13 | W.PN.ID1 ---
Date of Service
Date of Service: December 28, 2023
Today's Communication
Continue meropenem.
Assessment / Plan
ESBL Ecoli Bacteremia
Suspected MV IE: vege increased in size from ~6mvt7ko to ~3ktf0bb, severe MR
ESRD on HD via HD catheter
Anasarca
Epilepsy
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
MDRO infection
- 12/23 blood cultures ESBL E coli
- 12/24 blood cultures NGTD
- limited abd US to confirmed no drainable pocket of ascites
- CXR and CT a/p without definite source - stercoral colitis noted - on lactulose and BM recorded
- straight cath yielded no urine
- LLE: chronic venous stasis dermatitis - unlikely to be the source
- TTE: MV vegetation again seen - increased in size from ~3kpi3ni to ~8tlu7pj, severe MR
- PASCALE cancelled due to thrombocytopenia (cirrhosis)
- Per cardiothoracic, pt too high risk for valvular surgery.
-HD catheter removed 12/26. Cath tip cx pending.
-continue meropenem (d3), anticipate prolonged course
-Meropenem can lower seizure threshold. Follow closely.
- follow clinically
Chief Complaint
-: Bacteremia
Subjective / Review of Systems
No new complaints
Vital Signs / Physical Exam
Vital Signs
Vital Signs
Temp Pulse Resp BP Pulse Ox
98.4 F 74 22 129/55 94
12/28/23 07:00 12/28/23 06:00 12/28/23 06:00 12/28/23 06:00 12/28/23 06:00
Physical Exam
Constitutional: Comfortable
Cardiovascular: Regular Rate, S1/S2 and Murmur
Pulmonary: Clear
Gastrointestinal: Soft, Non Tender and Non Distended
Extremities: Negative Edema
Neurological: AO x 3
Objective Data
Lab Data
Lab Results
12/28/23 05:39
12/28/23 05:39
Estimated Creat Clear 15 ml/min 12/28/23 05:39
Lactic Acid 1.9 mmol/L (0.7-2.0) 12/25/23 04:53
Total Bilirubin 1.0 mg/dl (0.2-1.3) 12/28/23 05:39
AST 58 U/L (14-36) H 12/28/23 05:39
ALT 30 U/L (0-35) 12/28/23 05:39
Alkaline Phosphatase 156 U/L (38-126) H 12/28/23 05:39
Most recent labs reviewed.
Micro Results:
12/27/23 14:09 Catheter Tip Culture - Preliminary
Catheter Tip No Growth After 18-24 Hours
12/25/23 13:46 Blood Culture - Preliminary
Blood/Venous No Growth in 48 hours- Final report to follow
12/25/23 13:06 Blood Culture - Preliminary
Blood/Venous No Growth in 48 hours- Final report to follow
12/24/23 08:37 Blood Culture - Final
Blood/Venous Escherichia coli - ESBL
Gram Stain - Final
12/24/23 08:37 Blood Culture - Final
Blood/Venous Escherichia coli - ESBL
Gram Stain - Final
12/24/23 17:53 MRSA Screen - Final
Nose No Methicillin Resistant Staphylococcus aureus isolated.
12/24/23 10:41 Influenza Types A & B ([facility]) - Final
Nasal Swab Negative for Influenza A & B, NAAT
Negative results must be combined with clinical observations
and patient history.
Nucleic Acid Amplification test (NAAT)performed on the
[employer] platform.
--- NOTE | 2023-12-28 10:54 | W.PN.CD ---
Today's Communication / Plan
-
IV abx
continue meds
Impression / Plan
-
A: 63 yo female with hx of ESRD on HD MWF, MV endocarditis, chronic anemia and thrombocytopenia, alcoholic cirrhosis, DM2, HTN, GERD, HTN, who presented wtih AMS and found to have E COli bactermia.
Abnormal echo - echo 12/26/23 with EF 60-65%, with mobile echodensity on posterior leaflet of MV likely vegetation measuring 2.1 cm x 2.3 cm, and severe MR.
- remains asymptomatic
- empirically treat for endocarditis
- holding on PASCALE as will not car changer for now
- volume managed with HD.
Sepsis - unknown source, E.coli.
- management per ID, hospitalist.
Hypotension
- on midodrine with HD.
ESRD - on HD, per nephrology.
- M,W,F HD.
- right upper chest HD cath.
Anemia - acute on chronic.
- with chronic thrombocytopenia.
- per hospitalist.
Epilepsy - stable on Keppra.
TME - acute, secondary to sepsis likely.
- lactulose.
- improving.
Physical Exam
Vital Signs/Labs
Vital Signs
Temp Pulse Resp BP Pulse Ox
98.4 F 74 22 129/55 94
12/28/23 07:00 12/28/23 06:00 12/28/23 06:00 12/28/23 06:00 12/28/23 06:00
12/27/23 12/28/23 12/29/23
06:59 06:59 06:59
Actual Weight 138 lb 7.205 oz 136 lb 14.513 oz
12/28/23 05:39
12/28/23 05:39
Physical Exam
Constitutional: No acute distress and Comfortable
EENT: Anicteric
Cardiovascular: Rhythm & rate is regular and Pedal edema is absent
Respiratory: Respiratory effort normal and Lungs clear to auscul.
GI: Soft
Neuro/Psych: AO x 3
Data Reviewed
-
Date of Service: December 28, 2023
EKG: Tracing Personally Visualized and interpreted (sr)
Echo: Tracing Personally Visualized and interpreted
Labs: Labs Reviewed by me
--- NOTE | 2023-12-28 10:58 | W.PN.NEPH.PH ---
Today's Communication / Plan
-
CVC saturday
Assessment/Plan
-
Assessment
ESRD
Fever/sepsis
ESLD on chronic midodrine with dialysis
Chronic thrombocytopenia pancytopenia
Paroxysmal atrial fibrillation
Diabetes mellitus type 2
Seizure disorder
Right CVC HD catheter/resection of left upper extremity hybrid AV graft
Plan
abx per primary team
Midodrine with dialysis
No heparin on dialysis
next HD saturday after new tunnelled CVC
-
-
Date of Service: December 28, 2023
CC / HPI / ROS
-
Chief Complaint:
ESRD
History of Present Illness:
ESRD MWF
Hemodynamically stable
Remains on meropenem for E. coli bacteremia
tolerated HD yesterday, CVC removed
Review of Systems:
Fevers resolved
Mental status back towards baseline
Denies body pain
Labs
-
Labs:
WBC 6.8 10^3/uL (4.8-10.8) 12/28/23 05:39
RBC 2.79 10^6/uL (4.20-5.40) L 12/28/23 05:39
Hgb 8.5 g/dL (12.0-16.0) L 12/28/23 05:39
Hct 25.8 % (37.0-47.0) L 12/28/23 05:39
Plt Count 40 10^3/uL (130-400) L 12/28/23 05:39
Sodium 139 mmol/L (135-145) 12/28/23 05:39
Potassium 3.3 mmol/L (3.5-5.1) L 12/28/23 05:39
Chloride 103 mmol/L (98-107) 12/28/23 05:39
Carbon Dioxide 28 mmol/L (22-30) 12/28/23 05:39
BUN 23 mg/dl (7-17) H 12/28/23 05:39
Creatinine 3.2 mg/dL (0.6-1.0) H 12/28/23 05:39
eGFR 15.58 12/28/23 05:39
Glucose 144 mg/dl (70-99) H 12/28/23 05:39
Calcium 8.1 mg/dl (8.4-10.2) L 12/28/23 05:39
Albumin 2.3 g/dl (3.5-5.0) L 12/28/23 05:39
Physical Exam
-
Vital Signs:
Vital Signs
Temp Pulse Resp BP Pulse Ox
98.4 F 74 22 129/55 94
12/28/23 07:00 12/28/23 06:00 12/28/23 06:00 12/28/23 06:00 12/28/23 06:00
Cardiovascular:: Regular rate and rhythm
Respiratory:: Bilateral: CTA
Lung Excursion:: Normal
Abdomen:: Nontender and Soft
Bowel Sounds:: Normal
Extremity Edema:: None: Bilateral:
[2023-12-28 12:18] LABS: Glucose - Point of Care 138 mg/dl (70-99)
--- NOTE | 2023-12-28 16:34 | PTCARENOTE ---
Patient INC of loose stool x2. Barrier cream and desenex applied to sacrum and perineum. Patient forgetful a times, slow speech. Bed alarm in use. SR/SB with PAC's. Turning patient Q2h.
[2023-12-28] MEDS: PEPCID 10 MG PO (16:54)
[2023-12-28 17:04] LABS: Glucose - Point of Care 130 mg/dl (70-99)
[2023-12-28] MEDS: REMERON 7.5 MG PO (20:54)
[2023-12-28] MEDS: STERILE WATER FOR INJECTION 10 ML IV (20:55)
[2023-12-28] MEDS: MERREM 500 MG IV (20:56)
[2023-12-28] MEDS: XALATAN OPHTHALMIC SOLUTION 1 DROP BOTH EYES (20:57)
[2023-12-28] MEDS: LANTUS 0.05 UNITS SC (21:14)
[2023-12-28 21:22] LABS: Glucose - Point of Care 162 mg/dl (70-99)
--- NOTE | 2023-12-28 22:47 | PTCARENOTE ---
Pt resting comfortably in bed. AAOx3 but forgetful and confused at times. Drowsy. Bed alarm on and working. Coughing episode after end of day shift Lactulose given. Approx half hr coughing spell. With HS dose pt took small sips and HS meds without
issue. Anuric. Two episodes soft/loose brown bm, not watery or liquid. Skin as documented. VSS. Afebrile. SR/PAC/PQT on CM. Maintained on Q2h turns. Rest of assessment as documented. Call sandoval within reach. Will continue to monitor.
[2023-12-29] VITALS (13 sets, daily range): BP systolic 88–146; BP diastolic 40–66; BMI 24.6
[2023-12-29 07:23] LABS: Glucose - Point of Care 166 mg/dl (70-99)
--- NOTE | 2023-12-29 08:11 | W.PN.HOSP.TC ---
Today's Communication/Plan
-
Continue current care
Assessment / Plan
Assessment / Plan
Gen-awake, alert, NAD
HEENT-NC, AT, anicteric, clear oral mm
Neck-supple
CV-reg, no M, +S1/S2
Lungs-clear B/L
Abd-soft, NT, ND
Ext-left lower extremity lymphedema, erythema
Musculoskeletal-no cyanosis, clubbing
Skin-warm and dry, bilateral lower extremity hyperpigmentation
Neuro-grossly non-focal
Psych-calm, cooperative
Acute TME -likely due to sepsis. Acute TME resolved.
ESBL E. coli sepsis - source possibly due to HD catheter. However, catheter tip culture without growth so far. Repeat blood cx negative. IV meropenem per ID. Dialysis catheter removed 12/26 after dialysis. Will need new catheter on Saturday.
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 MV vegetation notably larger on TTE compared to previous Echo, now measuring 2.1 x 2.3 cm. Severe MR noted. PASCALE aborted due to thrombocytopenia. CT
surgery consulted for opinion regarding potential MVR, deemed not to be a good surgical candidate due to multiple comorbidities.
Left lower extremity cellulitis -with chronic underlying lymphedema. Doppler ultrasound negative for DVT. Cellulitis resolved. Legs are looking back to baseline with bilateral lower extremity chronic venous stasis dermatitis changes.
ESRD on HD -Saturday/Saturday/Saturday. Nephrology following.
Hypokalemia - continue oral repletion, check labs on Saturday.
Mild L1 vertebral compression deformity -noted on CT. New compared to prior CT of September 2022.
DM 2 without hyperglycemia -she is on glargine insulin 5 units at bedtime, NovoLog insulin sliding scale in the residential. Glucose 144 this morning. Hemoglobin A1c unreliable in the setting of chronic anemia. Glucoses improving on Lantus 5
units at bedtime, aspart 4 units AC.
Alcoholic cirrhosis -continue lactulose, bowels are moving well.
Epilepsy -continue Keppra.
Essential hypertension -stable.
Acute on chronic anemia -hemoglobin stable and at baseline, 8.5 today. Confirmed baseline hemoglobin with her residential. Erythropoietin stimulating agent to continue, nephrology to adjust dose.
HCV
Chronic thrombocytopenia -likely due to cirrhosis, splenic sequestration.
Chronic pain syndrome/chronic opiate dependence -on chronic fentanyl patch.
Functional paraparesis -chronic bilateral lower extremity weakness and ambulatory dysfunction. At baseline is able to transfer from wheelchair to commode but does not ambulate.
Full code
Dispo - back to residential when medically stable.
Anticipated Discharge: 24 - 48 hours
Subjective/Interval History
-
Date of Service: December 29, 2023
Patient seen and examined. No complaints.
Objective Data
-
Vital Signs:
Vital Signs
Temp Pulse Resp BP Pulse Ox
97.8 F 64 21 111/40 95
12/29/23 07:10 12/29/23 06:00 12/29/23 06:00 12/29/23 06:00 12/29/23 02:00
I&O
12/28/23 12/29/23 12/30/23
06:59 06:59 06:59
Intake Total 720 / 720 820 / 820
Balance 720 / 720 820 / 820
Review of Systems
-
History Source: Patient
All other systems: Reviewed and negative
--- NOTE | 2023-12-29 09:18 | W.PN.ID1 ---
Date of Service
Date of Service: December 29, 2023
Today's Communication
Continue meropenem.
Assessment / Plan
ESBL Ecoli Bacteremia
Suspected MV IE: vege increased in size from ~9atn4ko to ~6nnr5st, severe MR
ESRD on HD via HD catheter
Anasarca
Epilepsy
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
MDRO infection
- 12/23 blood cultures ESBL E coli
- 12/24 blood cultures NGTD
- limited abd US to confirmed no drainable pocket of ascites
- CXR and CT a/p without definite source - stercoral colitis noted - on lactulose and BM recorded
- straight cath yielded no urine
- LLE: chronic venous stasis dermatitis - unlikely to be the source
- TTE: MV vegetation again seen - increased in size from ~7fab9qs to ~0uoo1ey, severe MR
- PASCALE cancelled due to thrombocytopenia (cirrhosis)
- Per cardiothoracic, pt too high risk for valvular surgery.
-HD catheter removed 12/26. Cath tip cx neg to date
-continue meropenem (d4), anticipate prolonged course
-Meropenem can lower seizure threshold. Follow closely.
- follow clinically
Chief Complaint
-: Bacteremia
Subjective / Review of Systems
No new complaints.
Vital Signs / Physical Exam
Vital Signs
Vital Signs
Temp Pulse Resp BP Pulse Ox
97.8 F 64 21 111/40 95
12/29/23 07:10 12/29/23 06:00 12/29/23 06:00 12/29/23 06:00 12/29/23 02:00
Physical Exam
Constitutional: Comfortable and Chronically Ill
Cardiovascular: Regular Rate, S1/S2 and Murmur
Gastrointestinal: Soft, Non Tender and Normal Bowel Sounds
Extremities: Negative Edema
Objective Data
Lab Data
Lab Results
12/28/23 05:39
12/28/23 05:39
Estimated Creat Clear 15 ml/min 12/28/23 05:39
Lactic Acid 1.9 mmol/L (0.7-2.0) 12/25/23 04:53
Total Bilirubin 1.0 mg/dl (0.2-1.3) 12/28/23 05:39
AST 58 U/L (14-36) H 12/28/23 05:39
ALT 30 U/L (0-35) 12/28/23 05:39
Alkaline Phosphatase 156 U/L (38-126) H 12/28/23 05:39
Most recent labs reviewed.
Micro Results:
12/25/23 13:46 Blood Culture - Preliminary
Blood/Venous No Growth in 72 hours- Final report to follow
12/25/23 13:06 Blood Culture - Preliminary
Blood/Venous No Growth in 72 hours- Final report to follow
12/27/23 14:09 Catheter Tip Culture - Preliminary
Catheter Tip No Growth After 18-24 Hours
12/24/23 08:37 Blood Culture - Final
Blood/Venous Escherichia coli - ESBL
Gram Stain - Final
12/24/23 08:37 Blood Culture - Final
Blood/Venous Escherichia coli - ESBL
Gram Stain - Final
12/24/23 17:53 MRSA Screen - Final
Nose No Methicillin Resistant Staphylococcus aureus isolated.
12/24/23 10:41 Influenza Types A & B ([facility]) - Final
Nasal Swab Negative for Influenza A & B, NAAT
Negative results must be combined with clinical observations
and patient history.
Nucleic Acid Amplification test (NAAT)performed on the
[employer] platform.
[2023-12-29] MEDS: NOVOLOG FLEXPEN-LOW RESISTANCE 1 UNITS SC ×2 (09:50→17:18)
[2023-12-29] MEDS: RENVELA 800 MG PO ×3 (09:51→17:18)
[2023-12-29] MEDS: NOVOLOG FLEXPEN 4 UNITS SC ×3 (09:51→17:18)
[2023-12-29] MEDS: DUPHALAC/CHRONULAC 20 GRAMS PO ×4 (09:52→21:41)
[2023-12-29] MEDS: DESENEX/MITRAZOL/ZEASORB 1 APPLIC TOPICAL ×2 (09:52→19:41)
[2023-12-29] MEDS: TIMOPTIC 0.5% OPHTHALMIC SOLUTION 1 DROP BOTH EYES (09:52)
[2023-12-29] MEDS: KEPPRA 250 MG PO ×2 (09:52→19:41)
--- NOTE | 2023-12-29 10:14 | W.PN.CD ---
Today's Communication / Plan
-
IV abx
Cont meds
Impression / Plan
-
A: 63 yo female with hx of ESRD on HD MWF, MV endocarditis, chronic anemia and thrombocytopenia, alcoholic cirrhosis, DM2, HTN, GERD, HTN, who presented wtih AMS and found to have E COli bactermia.
Severe MR with mobile echodensity on posterior leaflet of MV likely vegetation measuring 2.1 cm x 2.3 cm - echo 12/26/23 with EF 60-65%,
- remains asymptomatic
- empirically treat for endocarditis
- will hold off on PASCALE given no change in management
- volume managed with HD.
Sepsis - unknown source, E.coli.
- management per ID, hospitalist.
Hypotension
- on midodrine with HD.
ESRD - on HD, per nephrology.
- M,W,F HD.
- right upper chest HD cath.
Anemia - acute on chronic.
- with chronic thrombocytopenia.
- per hospitalist.
Epilepsy - stable on Keppra.
TME - acute, secondary to sepsis likely.
- lactulose.
- improving.
Physical Exam
Vital Signs/Labs
Vital Signs
Temp Pulse Resp BP Pulse Ox
97.8 F 71 17 122/52 95
12/29/23 07:10 12/29/23 08:00 12/29/23 08:00 12/29/23 08:00 12/29/23 02:00
12/28/23 12/29/23 12/30/23
06:59 06:59 06:59
Actual Weight 136 lb 14.513 oz 138 lb 10.732 oz
12/28/23 05:39
12/28/23 05:39
Physical Exam
Constitutional: No acute distress and Comfortable
EENT: Anicteric
Cardiovascular: Rhythm & rate is regular and Pedal edema is absent
Respiratory: Respiratory effort normal and Lungs clear to auscul.
GI: Soft
Neuro/Psych: Alert and Oriented
Data Reviewed
-
Date of Service: December 29, 2023
Medical Decision Making: Reviewed Test Results
EKG: Tracing Personally Visualized and interpreted (sr)
Echo: Tracing Personally Visualized and interpreted and Report Reviewed by me
Labs: Labs Reviewed by me
--- NOTE | 2023-12-29 10:38 | W.PN.NEPH.PH ---
Today's Communication / Plan
-
Dialysis tomorrow
Assessment/Plan
-
Assessment
ESRD
Fever/sepsis
ESLD on chronic midodrine with dialysis
Chronic thrombocytopenia pancytopenia
Paroxysmal atrial fibrillation
Diabetes mellitus type 2
Seizure disorder
Right CVC HD catheter/resection of left upper extremity hybrid AV graft
Plan
abx per primary team
Midodrine with dialysis
No heparin on dialysis
next HD tomorrow after new tunnelled CVC
-
-
Date of Service: December 29, 2023
CC / HPI / ROS
-
Chief Complaint:
ESRD
History of Present Illness:
ESRD MWF
Hemodynamically stable
Remains on meropenem for E. coli bacteremia
tolerated HD Saturday, CVC removed
Review of Systems:
Fevers resolved
Mental status back towards baseline, may not be completely resolved yet
Denies body pain
Labs
-
Labs:
WBC 6.8 10^3/uL (4.8-10.8) 12/28/23 05:39
RBC 2.79 10^6/uL (4.20-5.40) L 12/28/23 05:39
Hgb 8.5 g/dL (12.0-16.0) L 12/28/23 05:39
Hct 25.8 % (37.0-47.0) L 12/28/23 05:39
Plt Count 40 10^3/uL (130-400) L 12/28/23 05:39
Sodium 139 mmol/L (135-145) 12/28/23 05:39
Potassium 3.3 mmol/L (3.5-5.1) L 12/28/23 05:39
Chloride 103 mmol/L (98-107) 12/28/23 05:39
Carbon Dioxide 28 mmol/L (22-30) 12/28/23 05:39
BUN 23 mg/dl (7-17) H 12/28/23 05:39
Creatinine 3.2 mg/dL (0.6-1.0) H 12/28/23 05:39
eGFR 15.58 12/28/23 05:39
Glucose 144 mg/dl (70-99) H 12/28/23 05:39
Calcium 8.1 mg/dl (8.4-10.2) L 12/28/23 05:39
Albumin 2.3 g/dl (3.5-5.0) L 12/28/23 05:39
Physical Exam
-
Vital Signs:
Vital Signs
Temp Pulse Resp BP Pulse Ox
97.8 F 71 17 122/52 95
12/29/23 07:10 12/29/23 08:00 12/29/23 08:00 12/29/23 08:00 12/29/23 08:40
Cardiovascular:: Regular rate and rhythm
Respiratory:: Bilateral: Coarse
Lung Excursion:: Normal
Abdomen:: Nontender and Soft
Bowel Sounds:: Normal
Extremity Edema:: None: Bilateral:
[2023-12-29 11:28] LABS: Glucose - Point of Care 234 mg/dl (70-99)
[2023-12-29] MEDS: KCL PO (12:36)
[2023-12-29] MEDS: NOVOLOG FLEXPEN-LOW RESISTANCE 2 UNITS SC (12:39)
[2023-12-29] MEDS: PEPCID 20 MG PO (12:39)
[2023-12-29 17:07] LABS: Glucose - Point of Care 191 mg/dl (70-99)
[2023-12-29] MEDS: STERILE WATER FOR INJECTION 10 ML IV (21:40)
[2023-12-29] MEDS: REMERON 7.5 MG PO (21:40)
[2023-12-29] MEDS: MERREM 500 MG IV (21:41)
[2023-12-29] MEDS: LANTUS 0.05 UNITS SC (21:41)
[2023-12-29] MEDS: XALATAN OPHTHALMIC SOLUTION 1 DROP BOTH EYES (21:42)
[2023-12-29 21:51] LABS: Glucose - Point of Care 153 mg/dl (70-99)
--- NOTE | 2023-12-29 23:30 | PTCARENOTE ---
Assumed care of patient from previous RN. AOx3 but can be confused at times. NSR on monitor, VSS. Episode of of loose BM. Room air sating at 96%. Anuric with a 1440 fluid restriction. Assessment as documented. Patient resting in bed with call sandoval
in reach.
[2023-12-30] VITALS (37 sets, daily range): BP systolic 54–164; BP diastolic 49–83; BMI 24.2
[2023-12-30 05:16] LABS: Blood Urea Nitrogen 45 mg/dl (7-17); Calcium 7.9 mg/dl (8.4-10.2); Carbon Dioxide 26 mmol/L (22-30); Chloride 101 mmol/L (98-107); Estimated Creatinine Clearance 8 ml/min; Glucose 151 mg/dl (70-99); Potassium 4.1 mmol/L (3.5-5.1); Sodium 137 mmol/L (135-145); eGFR 7.48
[2023-12-30 07:50] LABS: % Basophils 0.6 % (0-2); % Eosinophils 11.2 % (0-6); % Immature Granulocytes 4.6 % (0-0.5); % Lymphocytes 27.5 % (20.5-51.1); % Monocytes 9.1 % (1.7-9.3); Absolute Eosinophils 0.8 10^3/uL (0-0.7); Absolute Immature Granulocytes 0.3 10^3/uL (0-0.05); Absolute Lymphocytes 1.8 10^3/uL (1.2-3.4); Absolute Monocytes 0.6 10^3/uL (0.1-0.6); Absolute Neutrophils 3.2 10^3/uL (1.4-6.5); Hemoglobin 8.2 g/dL (12.0-16.0); Mean Corp Hgb Conc. 32.8 g/dL (33.0-37.0); Mean Corpuscular Hgb 29.9 pg (27.0-31.0); Mean Corpuscular Volume 91.2 fL (81.0-99.0); Mean Platelet Volume 11.4 fL (7.4-10.4); Nucleated Red Blood Cells % 0 %; Platelet Count 56 10^3/uL (130-400); Red Blood Cell Count 2.74 10^6/uL (4.20-5.40); Red Cell Dist. Width 16.4 % (11.5-14.5); White Blood Cell Count 6.7 10^3/uL (4.8-10.8)
[2023-12-30 07:57] LABS: Glucose - Point of Care 145 mg/dl (70-99)
[2023-12-30] MEDS: NOVOLOG FLEXPEN SC ×3 (08:04→17:00)
[2023-12-30] MEDS: NOVOLOG FLEXPEN-LOW RESISTANCE SC ×3 (08:05→17:00)
[2023-12-30] MEDS: RENVELA PO ×3 (08:05→17:38)
[2023-12-30] MEDS: DESENEX/MITRAZOL/ZEASORB 1 APPLIC TOPICAL ×2 (08:06→19:26)
[2023-12-30] MEDS: KEPPRA 250 MG PO ×2 (08:06→19:26)
[2023-12-30] MEDS: DUPHALAC/CHRONULAC PO ×3 (08:06→17:54)
[2023-12-30] MEDS: TIMOPTIC 0.5% OPHTHALMIC SOLUTION 1 DROP BOTH EYES (08:07)
--- NOTE | 2023-12-30 08:20 | W.PN.CD ---
Today's Communication / Plan
-
increase activity
cont ABX for probable SBE- if PASCALE becomes necessary may need EGD to rule out varices
Impression / Plan
-
A: 63 yo female with hx of ESRD on HD MWF, MV endocarditis, chronic anemia and thrombocytopenia, alcoholic cirrhosis, DM2, HTN, GERD, HTN, who presented wtih AMS and found to have E COli bactermia.
Severe MR with mobile echodensity on posterior leaflet of MV likely vegetation measuring 2.1 cm x 2.3 cm - echo 12/26/23 with EF 60-65%,
- remains asymptomatic. No sign of heart block. Rhythm SR/SB
- empirically treat for endocarditis
- will hold off on PASCALE given no change in management . There is a possibliity of esophageal varices given hx cirrhosis
- volume managed with HD.
- Followup echo in 1-2 wks would be appropriate
Sepsis - unknown source, E.coli.
- management per ID, hospitalist.
Hypotension
- on midodrine with HD.
ESRD - on HD, per nephrology.
- M,W,F HD.
- right upper chest HD cath.
Anemia - acute on chronic.
- with chronic thrombocytopenia.
- per hospitalist.
Epilepsy - stable on Keppra.
TME - acute, secondary to sepsis likely.
- significantly improved
Physical Exam
Vital Signs/Labs
Vital Signs
Temp Pulse Resp BP Pulse Ox
97.7 F 68 20 135/64 97
12/30/23 07:30 12/30/23 08:00 12/30/23 08:00 12/30/23 08:00 12/30/23 08:00
12/29/23 12/30/23 12/31/23
06:59 06:59 06:59
Actual Weight 138 lb 10.732 oz 136 lb 7.458 oz
12/30/23 04:24
12/30/23 04:24
Physical Exam
Constitutional: No acute distress and Comfortable
Cardiovascular: Rhythm & rate is regular and Murmur/rub/gallop absent
Respiratory: Lungs clear to auscul., Wheeze Absent and Crackles Absent
GI: Soft and Non tender
Neuro/Psych: Motor deficits absent
Data Reviewed
-
Date of Service: December 30, 2023
--- NOTE | 2023-12-30 08:32 | W.PN.HOSP.TC ---
Today's Communication/Plan
-
Plan for vascular access today. Continue IV antibiotics.
Assessment / Plan
Assessment / Plan
Gen-awake, alert, NAD
HEENT-NC, AT, anicteric, clear oral mm
Neck-supple
CV-reg, no M, +S1/S2
Lungs-clear B/L
Abd-soft, NT, ND
Ext-left lower extremity lymphedema, erythema
Musculoskeletal-no cyanosis, clubbing
Skin-warm and dry, bilateral lower extremity hyperpigmentation
Neuro-grossly non-focal
Psych-calm, cooperative
Acute TME -likely due to sepsis. Acute TME resolved.
ESBL E. coli sepsis - source possibly due to HD catheter. However, catheter tip culture without growth so far. Repeat blood cx negative. IV meropenem per ID. Dialysis catheter removed 12/26 after dialysis. Will need new catheter today on Saturday.
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 MV vegetation notably larger on TTE compared to previous Echo, now measuring 2.1 x 2.3 cm. Severe MR noted. PASCALE aborted due to thrombocytopenia. CT
surgery consulted for opinion regarding potential MVR, deemed not to be a good surgical candidate due to multiple comorbidities.
Ruled out left lower extremity cellulitis -chronic venous stasis dermatitis and lymphedema.
ESRD on HD -Saturday/Saturday/Saturday. Nephrology following.
Hypokalemia -back to normal today. Continue to replete and trend as needed
Mild L1 vertebral compression deformity -noted on CT. New compared to prior CT of September 2022.
DM 2 without hyperglycemia -she is on glargine insulin 5 units at bedtime, NovoLog insulin sliding scale in the senior living. Glucose 144 this morning. Hemoglobin A1c unreliable in the setting of chronic anemia. Glucoses improving on Lantus 5
units at bedtime, aspart 4 units AC.
Alcoholic cirrhosis -continue lactulose, bowels are moving well.
Epilepsy -continue Keppra.
Essential hypertension -stable.
Acute on chronic anemia -hemoglobin stable and at baseline, 8.5 today. Confirmed baseline hemoglobin with her senior living. Erythropoietin stimulating agent to continue, nephrology to adjust dose.
HCV
Chronic thrombocytopenia -likely due to cirrhosis, splenic sequestration.
Chronic pain syndrome/chronic opiate dependence -on chronic fentanyl patch.
Functional paraparesis -chronic bilateral lower extremity weakness and ambulatory dysfunction. At baseline is able to transfer from wheelchair to commode but does not ambulate.
Full code
Dispo - back to senior living when medically stable.
Time spent 52 minutes
Anticipated Discharge: 24 - 48 hours
Subjective/Interval History
-
Date of Service: December 30, 2023
Patient complains of fatigue with generalized weakness. No chest pain or shortness of breath. No fever
Objective Data
-
Labs:
Laboratory Results
12/30/23
04:24
WBC 6.7
Hgb 8.2 L
Hct 25.0 L
Plt Count 56 L D
Sodium 137
Potassium 4.1
Chloride 101
Carbon Dioxide 26
BUN 45 H
Creatinine 5.9 H*
Glucose 151 H
Calcium 7.9 L
Vital Signs:
Vital Signs
Temp Pulse Resp BP Pulse Ox
97.7 F 68 20 135/64 97
12/30/23 07:30 12/30/23 08:00 12/30/23 08:00 12/30/23 08:00 12/30/23 08:00
I&O
12/29/23 12/30/23 12/31/23
06:59 06:59 06:59
Intake Total 820 / 820 600 / 600
Balance 820 / 820 600 / 600
--- NOTE | 2023-12-30 10:09 | W.PN.ID1 ---
Date of Service
Date of Service: December 30, 2023
Today's Communication
- continue meropenem (d7 including the days of zosyn which were also effective rx), plan 6 week course through 02/02
- Meropenem can lower seizure threshold but has been tolerated thus far, including through a weekend off of HD
- cardiology recommends follow up TTE in 1-2 weeks
- stable for dc post HD cath replacement with outpatient follow up with cardiology for TTE
Prognosis overall poor
Assessment / Plan
ESBL Ecoli Bacteremia
Suspected MV IE: vege increased in size from ~1ape1os to ~9txm7tk, severe MR
ESRD on HD via HD catheter
Anasarca
Epilepsy
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
MDRO infection
- 12/23 blood cultures ESBL E coli
- 12/24 blood cultures NGTD
- TTE: MV vegetation again seen - increased in size from ~6gna0vd to ~2byp0mg, severe MR
- PASCALE cancelled due to thrombocytopenia (cirrhosis)
- Per cardiothoracic, pt too high risk for valvular surgery.
- HD catheter removed 12/26. Cath tip cx neg to date; for replacement today
- as patient will require daily antibiotics, PICC also ordered
- script given to classification case manager 12/29
- weekly labs to be sent to my office
- continue meropenem (d7 including the days of zosyn which were also effective rx), plan 6 week course through 02/02
- Meropenem can lower seizure threshold but has been tolerated thus far, including through a weekend off of HD
- cardiology recommends follow up TTE in 1-2 weeks
- stable for dc post HD cath replacement with outpatient follow up with cardiology for TTE
Prognosis overall poor
Chief Complaint
-: Bacteremia
Subjective / Review of Systems
afebrile
bp stable
no events overnight
Vital Signs / Physical Exam
Vital Signs
Vital Signs
Temp Pulse Resp BP Pulse Ox
97.7 F 68 20 135/64 97
12/30/23 07:30 12/30/23 08:00 12/30/23 08:00 12/30/23 08:00 12/30/23 08:00
Physical Exam
Constitutional: No Acute Distress and Chronically Ill
Cardiovascular: Regular Rate and S1/S2; Negative Murmur or Rub
Pulmonary: Clear and Symmetric; Negative Wheezes or Rales
Gastrointestinal: Soft, Non Tender, Non Distended and Normal Bowel Sounds
Skin: Warm and Dry; Negative Rash or Jaundice
Lines: PICC
Objective Data
Lab Data
Lab Results
12/30/23 04:24
12/30/23 04:24
Estimated Creat Clear 8 ml/min 12/30/23 04:24
Lactic Acid 1.9 mmol/L (0.7-2.0) 12/25/23 04:53
Total Bilirubin 1.0 mg/dl (0.2-1.3) 12/28/23 05:39
AST 58 U/L (14-36) H 12/28/23 05:39
ALT 30 U/L (0-35) 12/28/23 05:39
Alkaline Phosphatase 156 U/L (38-126) H 12/28/23 05:39
Most recent labs reviewed: CBC, CMP, cath tip culture
Micro Results:
12/27/23 14:09 Catheter Tip Culture - Final
Catheter Tip No Growth After 72 Hours
12/25/23 13:46 Blood Culture - Preliminary
Blood/Venous No Growth in 4 days- Final report to follow
12/25/23 13:06 Blood Culture - Preliminary
Blood/Venous No Growth in 4 days- Final report to follow
12/24/23 08:37 Blood Culture - Final
Blood/Venous Escherichia coli - ESBL
Gram Stain - Final
12/24/23 08:37 Blood Culture - Final
Blood/Venous Escherichia coli - ESBL
Gram Stain - Final
12/24/23 17:53 MRSA Screen - Final
Nose No Methicillin Resistant Staphylococcus aureus isolated.
12/24/23 10:41 Influenza Types A & B ([facility]) - Final
Nasal Swab Negative for Influenza A & B, NAAT
Negative results must be combined with clinical observations
and patient history.
Nucleic Acid Amplification test (NAAT)performed on the
[employer] platform.
[2023-12-30] MEDS: DUPHALAC/CHRONULAC 20 GRAMS PO ×2 (12:25→21:40)
[2023-12-30 12:30] LABS: Glucose - Point of Care 116 mg/dl (70-99)
[2023-12-30] MEDS: RETACRIT 12000 UNITS IV (15:32)
[2023-12-30] MEDS: DURAGESIC 12 MCG/HR PATCH 1 PATCH TRANSDERM (16:08)
--- NOTE | 2023-12-30 16:53 | W.PN.NEPH.HD ---
Assessment
-
pt seen during HD
vitals stable
no heparin
new tunneled catheter functions well, monitor bleeding at the site
SBP during visit was at 150
UF as tolerates
need TTE in 1-2week per cards
Progress Note - Hemodialysis
-
Date of Service: December 30, 2023
Duration: 30 minutes and 3 hours
Potassium Bath: 2
Calcium Bath: 2.5
Opti-Dialyzer: 160
Ultrafiltration: Other (1-2kg)
Blood Flow: 400
Dialysate Flow: 600
Heparin: no
EPO: [id number]
[2023-12-30 17:05] LABS: Glucose - Point of Care 104 mg/dl (70-99)
--- NOTE | 2023-12-30 17:47 | CM ---
Patient from [facility] with Hx ESRD on HD. Room air. Tunneled cath placed today. PICC placed today. Receiving IV meropenum. PT Eval 12/25; rec PT at [facility]. OT rec skilled rehab. Per nursing; forgetful.
Script received from Dr Ricks: IV meropenum Qpm x 6 wks, end date 02/03/24 via PICC, for Dx Probable MV endocarditis.
Spoke with Sharonda Malone re; need for IV Abx for 6 wks, and referral updated in [facility] with script and PICC Insertion data.
Per prior CM Notes: Report# [phone], .
Plan return to [facility] with ongoing IV Abx, PT/OT when medically ready.
[2023-12-30] MEDS: ProAmatine PO (17:53)
[2023-12-30] MEDS: RENVELA 800 MG PO (18:39)
[2023-12-30] MEDS: NOVOLOG FLEXPEN 4 UNITS SC (18:43)
[2023-12-30 18:48] LABS: Glucose - Point of Care 96 mg/dl (70-99)
[2023-12-30] MEDS: HEPARIN 3800 UNITS INTRACATH (18:57)
[2023-12-30 21:03] LABS: Glucose - Point of Care 164 mg/dl (70-99)
[2023-12-30] MEDS: LANTUS 0.05 UNITS SC (21:40)
[2023-12-30] MEDS: STERILE WATER FOR INJECTION 10 ML IV (21:41)
[2023-12-30] MEDS: MERREM 500 MG IV (21:41)
[2023-12-30] MEDS: REMERON 7.5 MG PO (21:48)
[2023-12-30] MEDS: XALATAN OPHTHALMIC SOLUTION 1 DROP BOTH EYES (21:51)
[2023-12-31] VITALS (15 sets, daily range): BP systolic 121–176; BP diastolic 35–75; PULSE 64–65; O2SAT 98–99; BMI 24.3
--- NOTE | 2023-12-31 02:36 | VATNOTE ---
CALLED TO ASSESS RIJ TUNN HDC. DRSG GROSSLY BLOODY AND LEAKING OUTSIDE OF DRSG. RD PER PROTOCOL WITH QUICK CLOT. NO ACTIVE BLEEDING NOTED FROM INSERTION SITE AT THIS TIME. VAT TO MONITOR. PCN AWARE OF INTERVETNION AND OUTCOME.
--- NOTE | 2023-12-31 02:55 | PTCARENOTE ---
Caring for patient overnight. Patient getting increasingly confused. Pt did refuse a couple doses of her lactulose today. VSS. NSR, remains RA. new R HD cath in place, it was leaking blood, saturated dressing & gown, IV team called to redress. Bed
alarm on. Pt frequently reoriented. Call sandoval in reach. Will monitor.
[2023-12-31 05:57] LABS: Hematocrit 22.4 % (37.0-47.0); Hemoglobin 7.3 g/dL (12.0-16.0); Mean Corp Hgb Conc. 32.6 g/dL (33.0-37.0); Mean Corpuscular Hgb 29.7 pg (27.0-31.0); Mean Corpuscular Volume 91.1 fL (81.0-99.0); Mean Platelet Volume 11.4 fL (7.4-10.4); Platelet Count 56 10^3/uL (130-400); Red Blood Cell Count 2.46 10^6/uL (4.20-5.40); Red Cell Dist. Width 16.7 % (11.5-14.5); White Blood Cell Count 5.8 10^3/uL (4.8-10.8)
[2023-12-31 06:12] LABS: Blood Urea Nitrogen 19 mg/dl (7-17); Calcium 7.3 mg/dl (8.4-10.2); Carbon Dioxide 27 mmol/L (22-30); Chloride 101 mmol/L (98-107); Estimated Creatinine Clearance 16 ml/min; Glucose 163 mg/dl (70-99); Sodium 135 mmol/L (135-145); eGFR 16.83
[2023-12-31 07:28] LABS: % Basophils 0.5 % (0-2); % Eosinophils 6.8 % (0-6); % Immature Granulocytes 1.6 % (0-0.5); % Lymphocytes 23.3 % (20.5-51.1); % Monocytes 10.4 % (1.7-9.3); % Neutrophils 57.4 % (42.2-75.2); Absolute Eosinophils 0.4 10^3/uL (0-0.7); Absolute Immature Granulocytes 0.1 10^3/uL (0-0.05); Absolute Lymphocytes 1.3 10^3/uL (1.2-3.4); Absolute Monocytes 0.6 10^3/uL (0.1-0.6); Absolute Neutrophils 3.3 10^3/uL (1.4-6.5); Nucleated Red Blood Cells % 0 %
--- NOTE | 2023-12-31 07:55 | W.PN.CD ---
Addendum entered and electronically signed by Gurvinder Dewey MD 12/31/23 08:54:
note . confusion . she thought she was at home and was complaining her shoes did not fit right.
Original Note:
Today's Communication / Plan
-
continue abx per ID
follow up echo 01/02/24
Hb 7.3 consider PRBC with HD
platelets 56,
check INR
Impression / Plan
-
A: 63 yo female with hx of ESRD on HD MWF, MV endocarditis, chronic anemia and thrombocytopenia, alcoholic cirrhosis, DM2, HTN, GERD, HTN, who presented wtih altered mental status ,fever and found to have E COli bactermia.
Severe MR with mobile echodensity on posterior leaflet of MV likely vegetation measuring 2.1 cm x 2.3 cm - echo 12/26/23 with EF 60-65%,
- remains asymptomatic. No sign of heart block. Rhythm SR/SB
- empirically treat for endocarditis
- will hold off on PASCALE given no change in management . There is a possibliity of esophageal varices given hx cirrhosis
- volume managed with HD.
- plan for Followup echo in 1-2 wks ( 01/01-01/08
Sepsis - E.coli.
- management per ID, hospitalist.
- tx for endocardiitsa s above
-
Hypotension
- on midodrine with HD.
ESRD - on HD, per nephrology.
- M,W,F HD.
- right upper chest HD cath.
Anemia - acute on chronic.
- with chronic thrombocytopenia.
- per hospitalist.
- Hb 7.3 consider PRBC with HD
thrombocytopenia - platelets 56
-
Epilepsy - stable on Keppra.
TME - acute, secondary to sepsis likely.
- improved
Physical Exam
Vital Signs/Labs
Vital Signs
Temp Pulse Resp BP Pulse Ox
97.6 F 73 14 126/74 98
12/31/23 04:14 12/31/23 06:00 12/31/23 06:00 12/31/23 04:00 12/31/23 04:00
12/30/23 12/31/23 01/01/24
06:59 06:59 06:59
Actual Weight 61.9 kg 62.3 kg
12/31/23 05:24
12/31/23 05:24
Physical Exam
Constitutional: No acute distress
Cardiovascular: Rhythm & rate is regular and Systolic murmur present (low pitched holosystolic murmurat apex and axilla)
Respiratory: Wheeze Absent and Rhonchi Absent
GI: Soft
Neuro/Psych: Alert
Other: Other (chest dialysis ccatheter rightchest with blood on bandage)
Data Reviewed
-
Date of Service: December 31, 2023
Medical Decision Making: Reviewed Test Results
Echo: Report Reviewed by me
Medical Tests (PFT, Pathology etc): Report Reviewed by me
Labs: Labs Reviewed by me
[2023-12-31 08:23] LABS: Glucose - Point of Care 120 mg/dl (70-99)
--- NOTE | 2023-12-31 08:53 | W.PN.HOSP.TC ---
Today's Communication/Plan
-
IV antibiotics. Blood transfusion today.
Assessment / Plan
Assessment / Plan
Gen-awake, alert, NAD
HEENT-NC, AT, anicteric, clear oral mm
Neck-supple
CV-reg, no M, +S1/S2
Lungs-clear B/L
Abd-soft, NT, ND
Ext-left lower extremity lymphedema, erythema
Musculoskeletal-no cyanosis, clubbing
Skin-warm and dry, bilateral lower extremity hyperpigmentation
Neuro-grossly non-focal
Psych-calm, cooperative
Acute TME -likely due to sepsis. Acute TME resolved.
Acute blood loss anemia/underlying anemia of chronic disease and pancytopenia related to cirrhosis-discussed risk and benefits of blood transfusion with patient and she agrees for blood transfusion. Discussed with nephrology and she is okay with
transfusion today and plan to dialyze tomorrow. Will go ahead and give blood transfusion today. Continue JUAN per nephrology.
ESBL E. coli sepsis - source possibly due to HD catheter. However, catheter tip culture without growth so far. Repeat blood cx negative. IV meropenem per ID. Dialysis catheter removed 12/26 after dialysis. Status post vascular catheter on 12/29.
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 MV vegetation notably larger on TTE compared to previous Echo, now measuring 2.1 x 2.3 cm. Severe MR noted. PASCALE aborted due to thrombocytopenia. CT
surgery consulted for opinion regarding potential MVR, deemed not to be a good surgical candidate due to multiple comorbidities.
Ruled out left lower extremity cellulitis -chronic venous stasis dermatitis and lymphedema.
ESRD on HD -Saturday/Saturday/Saturday. Nephrology following.
Hypokalemia -back to normal today. Continue to replete and trend as needed
Mild L1 vertebral compression deformity -noted on CT. New compared to prior CT of September 2022.
DM 2 without hyperglycemia -she is on glargine insulin 5 units at bedtime, NovoLog insulin sliding scale in the [facility]. Glucose 144 this morning. Hemoglobin A1c unreliable in the setting of chronic anemia. Glucoses improving on Lantus 5
units at bedtime, aspart 4 units AC.
Alcoholic cirrhosis -continue lactulose, bowels are moving well.
Epilepsy -continue Keppra.
Essential hypertension -stable.
HCV
Chronic thrombocytopenia -likely due to cirrhosis, splenic sequestration.
Chronic pain syndrome/chronic opiate dependence -on chronic fentanyl patch.
Functional paraparesis -chronic bilateral lower extremity weakness and ambulatory dysfunction. At baseline is able to transfer from wheelchair to commode but does not ambulate.
Full code
Dispo - back to [facility] when medically stable.
Time spent 52 minutes
Anticipated Discharge: 24 - 48 hours
Subjective/Interval History
-
Date of Service: December 31, 2023
Patient has some oozing blood from vascular access today. She does have generalized weakness. Denies chest pain or shortness of breath or abdominal pain.
Objective Data
-
Labs:
Laboratory Results
12/31/23 12/31/23
05:24 08:06
WBC 5.8
Hgb 7.3 L
Hct 22.4 L
Plt Count 56 L
PT Pending
INR Pending
Sodium 135
Potassium 4.0
Chloride 101
Carbon Dioxide 27
BUN 19 H
Creatinine 3.0 H
Glucose 163 H
Calcium 7.3 L
Vital Signs:
Vital Signs
Temp Pulse Resp BP Pulse Ox
97.6 F 73 14 126/74 98
12/31/23 04:14 12/31/23 06:00 12/31/23 06:00 12/31/23 04:00 12/31/23 04:00
I&O
12/30/23 12/31/23 01/01/24
06:59 06:59 06:59
Intake Total 600 / 600 240 / 240
Balance 600 / 600 240 / 240
[2023-12-31] MEDS: NOVOLOG FLEXPEN-LOW RESISTANCE SC (09:02)
[2023-12-31] MEDS: KEPPRA 250 MG PO ×2 (09:03→21:00)
[2023-12-31] MEDS: DUPHALAC/CHRONULAC 20 GRAMS PO ×4 (09:03→21:01)
[2023-12-31] MEDS: TIMOPTIC 0.5% OPHTHALMIC SOLUTION 1 DROP BOTH EYES (09:03)
[2023-12-31] MEDS: RENVELA 800 MG PO ×3 (09:03→17:21)
[2023-12-31] MEDS: DESENEX/MITRAZOL/ZEASORB 1 APPLIC TOPICAL ×2 (09:03→21:04)
--- NOTE | 2023-12-31 09:14 | W.PN.ID1 ---
Date of Service
Date of Service: December 31, 2023
Today's Communication
- continue meropenem (d8 of effective rx), plan 6 week course through 02/02
- cardiology recommends follow up TTE in 1-2 weeks
- stable for dc post HD from ID perspective, follow up with cardiology outpatient
Prognosis overall poor
Assessment / Plan
ESBL Ecoli Bacteremia
Suspected MV IE: vege increased in size from ~9bfm1us to ~6zws0ce, severe MR
ESRD on HD via HD catheter
Anasarca
Epilepsy
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
MDRO infection
- 12/23 blood cultures ESBL E coli
- 12/24 blood cultures finalized negative
- TTE: MV vegetation again seen - increased in size from ~2qug6xw to ~6qlt8pr, severe MR
- PASCALE cancelled due to thrombocytopenia (cirrhosis)
- Per cardiothoracic, pt too high risk for valvular surgery.
- HD catheter removed 12/26. Cath tip cx finalized negative; for replacement today
- as patient will require daily antibiotics, PICC also ordered
- script given to caseworker protective services 12/29
- weekly labs to be sent to my office
- continue meropenem (d8 of effective rx), plan 6 week course through 02/02
- Meropenem can lower seizure threshold but has been tolerated thus far, including through a weekend off of HD
- cardiology recommends follow up TTE in 1-2 weeks
- stable for dc post HD from ID perspective, follow up with cardiology outpatient
Prognosis overall poor
Chief Complaint
-: Bacteremia
Subjective / Review of Systems
afebrile
bp stable
some bleeding at new HD cath site - reinforced
Vital Signs / Physical Exam
Vital Signs
Vital Signs
Temp Pulse Resp BP Pulse Ox
97.6 F 73 14 126/74 98
12/31/23 04:14 12/31/23 06:00 12/31/23 06:00 12/31/23 04:00 12/31/23 04:00
Physical Exam
Constitutional: No Acute Distress
Cardiovascular: Regular Rate and S1/S2; Negative Murmur or Rub
Pulmonary: Clear and Symmetric; Negative Wheezes or Rales
Gastrointestinal: Soft, Non Tender, Non Distended and Normal Bowel Sounds
Skin: Warm and Dry; Negative Rash or Jaundice
Lines: HD Cath (dressing reinforced - clean, dry, intact)
Objective Data
Lab Data
Lab Results
12/31/23 05:24
12/31/23 05:24
Estimated Creat Clear 16 ml/min 12/31/23 05:24
Lactic Acid 1.9 mmol/L (0.7-2.0) 12/25/23 04:53
Total Bilirubin 1.0 mg/dl (0.2-1.3) 12/28/23 05:39
AST 58 U/L (14-36) H 12/28/23 05:39
ALT 30 U/L (0-35) 12/28/23 05:39
Alkaline Phosphatase 156 U/L (38-126) H 12/28/23 05:39
Most recent labs reviewed
eosinophilia resolved to AEC 400 today
Micro Results:
12/25/23 13:46 Blood Culture - Final
Blood/Venous No Growth - Final Report
12/25/23 13:06 Blood Culture - Final
Blood/Venous No Growth - Final Report
12/27/23 14:09 Catheter Tip Culture - Final
Catheter Tip No Growth After 72 Hours
12/24/23 08:37 Blood Culture - Final
Blood/Venous Escherichia coli - ESBL
Gram Stain - Final
12/24/23 08:37 Blood Culture - Final
Blood/Venous Escherichia coli - ESBL
Gram Stain - Final
12/24/23 17:53 MRSA Screen - Final
Nose No Methicillin Resistant Staphylococcus aureus isolated.
12/24/23 10:41 Influenza Types A & B ([facility]) - Final
Nasal Swab Negative for Influenza A & B, NAAT
Negative results must be combined with clinical observations
and patient history.
Nucleic Acid Amplification test (NAAT)performed on the
[employer] platform.
Care Review
Plan reviewed with: Physician (Dr Daniel munguia)
[2023-12-31 09:35] LABS: INR 1.31; PT 16.6 Sec (11.4-14.6)
--- NOTE | 2023-12-31 09:39 | PTCARENOTE ---
pts Tunneled catheter dressing saturated with blood upon assessment, placed yesterday in IR. paper cup machine operator made aware. Lisa from IV team at bedside redressing/reassessing dressing; requests that IR be notified. This Rn called and spoke to Eddie GUARDADO from
IR who stated a tech will come to assess. MD Sanchez made aware of the situation. Vitals stable. remains on monitor. plan of care continues to be followed.
--- NOTE | 2023-12-31 09:44 | PTCARENOTE ---
IR staff at bedside reassessing dressing at this time.
--- NOTE | 2023-12-31 09:54 | PN.IRAD.UPD ---
Update Note - IRAD
- -
Held pressure on right tunneled dialysis catheter and bleeding seems to have slowed down. Site dressed with quickclots and a tegaderm.
Bakari Walden RT(R)()
--- NOTE | 2023-12-31 09:54 | VATNOTE ---
Right IJ Tunn HDC saturated with blood, redressed with quick clot
[2023-12-31] MEDS: NOVOLOG FLEXPEN 4 UNITS SC ×3 (09:57→17:21)
[2023-12-31] MEDS: PEPCID 20 MG PO (11:16)
[2023-12-31 12:03] LABS: Glucose - Point of Care 172 mg/dl (70-99)
--- NOTE | 2023-12-31 12:13 | W.PN.NEPH.PH ---
Today's Communication / Plan
-
HD tomorrow
Assessment/Plan
-
Assessment
ESRD
Fever/sepsis
ESLD on chronic midodrine with dialysis
Chronic thrombocytopenia pancytopenia
Paroxysmal atrial fibrillation
Diabetes mellitus type 2
Seizure disorder
Right CVC HD catheter/resection of left upper extremity hybrid AV graft
Plan:
hb decreasing with oozing at the CVC site
ok for transfusion slowly
currently no sig bleeding noted, IV team to check
vol status seem stable
abx per ID team
Midodrine with dialysis
No heparin on dialysis
next HD tomorrow
d/w primary
-
-
Date of Service: December 31, 2023
CC / HPI / ROS
-
Chief Complaint:
ESRD
History of Present Illness:
ESRD MWF
Hemodynamically stable
Remains on meropenem for E. coli bacteremia
tolerated HD yesterday, CVC placed 12/29
hb low 7.3 and plt low 56-chronic
Review of Systems:
Mental status back towards baseline, may not be completely resolved yet
Denies any other complaints
had oozing at CVC site through the night soaked bandage and gown
Labs
-
Labs:
WBC 5.8 10^3/uL (4.8-10.8) 12/31/23 05:24
RBC 2.46 10^6/uL (4.20-5.40) L 12/31/23 05:24
Hgb 7.3 g/dL (12.0-16.0) L 12/31/23 05:24
Hct 22.4 % (37.0-47.0) L 12/31/23 05:24
Plt Count 56 10^3/uL (130-400) L 12/31/23 05:24
Sodium 135 mmol/L (135-145) 12/31/23 05:24
Potassium 4.0 mmol/L (3.5-5.1) 12/31/23 05:24
Chloride 101 mmol/L (98-107) 12/31/23 05:24
Carbon Dioxide 27 mmol/L (22-30) 12/31/23 05:24
BUN 19 mg/dl (7-17) H 12/31/23 05:24
Creatinine 3.0 mg/dL (0.6-1.0) H 12/31/23 05:24
eGFR 16.83 12/31/23 05:24
Glucose 163 mg/dl (70-99) H 12/31/23 05:24
Calcium 7.3 mg/dl (8.4-10.2) L 12/31/23 05:24
Albumin 2.3 g/dl (3.5-5.0) L 12/28/23 05:39
Physical Exam
-
Vital Signs:
Vital Signs
Temp Pulse Resp BP Pulse Ox
97.4 F 65 16 149/62 97
12/31/23 07:30 12/31/23 10:09 12/31/23 10:09 12/31/23 10:09 12/31/23 10:11
Cardiovascular:: Regular rate and rhythm
Respiratory:: Bilateral: CTA (decreased BS)
Lung Excursion:: Normal
Abdomen:: Nontender and Soft
Extremity Edema:: None: Bilateral:
Carrillo Catheter: No
Other Findings::
CVC site pressure bandage no active bleeding
[2023-12-31] MEDS: NOVOLOG FLEXPEN-LOW RESISTANCE 1 UNITS SC ×2 (13:04→17:21)
[2023-12-31 17:06] LABS: Glucose - Point of Care 185 mg/dl (70-99)
[2023-12-31] MEDS: REMERON 7.5 MG PO (21:00)
[2023-12-31] MEDS: MERREM 500 MG IV (21:01)
[2023-12-31] MEDS: STERILE WATER FOR INJECTION 10 ML IV (21:02)
[2023-12-31] MEDS: XALATAN OPHTHALMIC SOLUTION 1 DROP BOTH EYES (21:03)
[2023-12-31] MEDS: LANTUS SC (21:04)
[2023-12-31 21:16] LABS: Glucose - Point of Care 109 mg/dl (70-99)
[2023-12-31] MEDS: LANTUS 0.05 UNITS SC (21:16)
[2024-01-01] VITALS (22 sets, daily range): BP systolic 86–165; BP diastolic 57–118; BMI 24.6
--- NOTE | 2024-01-01 02:16 | PTCARENOTE ---
Assumed care for patient overnight, received report from RN. Pt AAOx2 unable to state the month or day. Pt confused at change of shift asking if her sister is here. Reoriented patient and she is calm now. Tunneled HD cath assessed, dressing has a
small amount of drainage. The dressing is dry and intact. Pt had two episodes of loose BM saturating through the brief and gown. Full bed bath and CHG wipe bath, a generous amount of moisture barrier cream around perineum. VSS. NSR on tele. Remains
room air. Skin assessed. Noted a small skin tear on her right buttock/thick. Silicone border foam applied. Replaced left lower arm foam to scabbed skin tear. PICC line dressing is clean, dry, and intact. Pt appears to be resting comfortably in bed.
Call sandoval is within reach.
[2024-01-01 05:13] LABS: % Basophils 0.8 % (0-2); % Eosinophils 6.7 % (0-6); % Immature Granulocytes 1.3 % (0-0.5); % Lymphocytes 24.9 % (20.5-51.1); % Monocytes 10.4 % (1.7-9.3); % Neutrophils 55.9 % (42.2-75.2); Absolute Basophils 0.1 10^3/uL (0-0.2); Absolute Eosinophils 0.4 10^3/uL (0-0.7); Absolute Immature Granulocytes 0.1 10^3/uL (0-0.05); Absolute Lymphocytes 1.5 10^3/uL (1.2-3.4); Absolute Monocytes 0.6 10^3/uL (0.1-0.6); Absolute Neutrophils 3.3 10^3/uL (1.4-6.5); Hematocrit 26.9 % (37.0-47.0); Hemoglobin 8.7 g/dL (12.0-16.0); Mean Corp Hgb Conc. 32.3 g/dL (33.0-37.0); Mean Corpuscular Hgb 29.8 pg (27.0-31.0); Mean Corpuscular Volume 92.1 fL (81.0-99.0); Mean Platelet Volume 10.7 fL (7.4-10.4); Nucleated Red Blood Cells % 0 %; Platelet Count 67 10^3/uL (130-400); Red Blood Cell Count 2.92 10^6/uL (4.20-5.40); Red Cell Dist. Width 16.9 % (11.5-14.5)
[2024-01-01 05:30] LABS: Blood Urea Nitrogen 28 mg/dl (7-17); Calcium 7.3 mg/dl (8.4-10.2); Carbon Dioxide 26 mmol/L (22-30); Chloride 101 mmol/L (98-107); Estimated Creatinine Clearance 11 ml/min; Glucose 101 mg/dl (70-99); Potassium 3.9 mmol/L (3.5-5.1); Sodium 134 mmol/L (135-145); eGFR 10.93
[2024-01-01 08:07] LABS: Glucose - Point of Care 90 mg/dl (70-99)
[2024-01-01] MEDS: NOVOLOG FLEXPEN-LOW RESISTANCE SC ×3 (08:08→17:55)
--- NOTE | 2024-01-01 08:39 | W.PN.CD ---
Today's Communication / Plan
-
Continue medical management for endocarditis. Patient is not a surgical candidate.
TTE on Saturday
Impression / Plan
-
63 yo female with hx of ESRD on HD MWF, MV endocarditis, chronic anemia and thrombocytopenia, alcoholic cirrhosis, DM2, HTN, GERD, HTN, who presented wtih altered mental status ,fever and found to have E COli bactermia and MV endocarditis.
Severe MR with mobile echodensity on posterior leaflet of MV likely vegetation measuring 2.1 cm x 2.3 cm - echo 12/26/23 with EF 60-65%,
- remains asymptomatic. No sign of heart block. Rhythm SR/SB, occasional junctional
- Medically treat for endocarditis
- will hold off on PASCALE given no change in management . There is a possibility of esophageal varices given hx cirrhosis
- volume managed with HD.
- plan for Followup echo on Saturday (01/02)
Sepsis - E.coli.
- management per ID, hospitalist.
- tx for endocarditis as above
Hypotension
- on midodrine with HD.
ESRD - on HD, per nephrology.
- M,W,F HD.
- right upper chest HD cath.
Anemia - acute on chronic.
- with chronic thrombocytopenia.
- per hospitalist.
- Hb 8.7 today from 7.3 with PRBC yesterday
thrombocytopenia - continue to monitor
Epilepsy - stable on Keppra.
Subjective: Patient's legs are bothering her today. Telemetry reveals intermittent junctional rhythm but no high-grade AV block.
Physical Exam
Vital Signs/Labs
Vital Signs
Temp Pulse Resp BP Pulse Ox
97.8 F 72 19 130/73 98
01/01/24 05:14 01/01/24 06:00 01/01/24 06:00 01/01/24 06:00 01/01/24 06:00
12/31/23 01/01/24 01/02/24
06:59 06:59 06:59
Actual Weight 62.3 kg 63 kg
01/01/24 04:48
01/01/24 04:48
PT 16.6 Sec (11.4-14.6) H 12/31/23 09:12
INR 1.31 12/31/23 09:12
Physical Exam
Constitutional: No acute distress and Comfortable
Cardiovascular: Rhythm & rate is regular, JVD pressure is normal, Pedal edema present (Trace nonpitting pedal edema with erythema and leg wounds), Systolic murmur present and S1S2 is normal
Respiratory: Respiratory effort normal and Lungs clear to auscul.
Data Reviewed
-
Date of Service: January 01, 2024
Medical Decision Making: Reviewed Test Results, Independent Historian Assessment, Test Interpretation and Review of Case with other Provider
EKG: Tracing Personally Visualized and interpreted
Echo: Report Reviewed by me
Labs: Labs Reviewed by me
--- NOTE | 2024-01-01 08:50 | W.PN.HOSP.TC ---
Today's Communication/Plan
-
IV antibiotics.
Assessment / Plan
Assessment / Plan
Gen-awake, alert, NAD
HEENT-NC, AT, anicteric, clear oral mm
Neck-supple
CV-reg, no M, +S1/S2
Lungs-clear B/L
Abd-soft, NT, ND
Ext-left lower extremity lymphedema, erythema
Musculoskeletal-no cyanosis, clubbing
Skin-warm and dry, bilateral lower extremity hyperpigmentation
Neuro-grossly non-focal
Psych-calm, cooperative
A/P:
Acute TME -likely due to sepsis. Acute TME resolved. Transfer out of IMU today. Continue PT OT upon transfer. manager switch for discharge disposition.
Acute blood loss anemia/underlying anemia of chronic disease and pancytopenia related to cirrhosis-status post blood transfusion on 12/30. Hemoglobin 8.7 today from 7.3 on 12/30. Continue JUAN per nephrology.
ESBL E. coli sepsis - Repeat blood cx negative. IV meropenem per ID-for 6 weeks until 02/03/2024. Dialysis catheter removed 12/26 after dialysis. Status post vascular catheter on 12/29 and had some complication with bleeding but now stopped.
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 Severe MR noted. PASCALE aborted due to thrombocytopenia and GI variceal risk. CT surgery consulted for opinion regarding potential MVR, deemed
not to be a good surgical candidate due to multiple comorbidities. Cardiology planning to repeat echo on Saturday.
Ruled out left lower extremity cellulitis -chronic venous stasis dermatitis and lymphedema.
ESRD on HD -Saturday/Saturday/Saturday. Nephrology following.
Hypokalemia -back to normal. Continue to replete and trend as needed
Mild L1 vertebral compression deformity -noted on CT. New compared to prior CT of September 2022.
DM 2 without hyperglycemia -she is on glargine insulin 5 units at bedtime, NovoLog insulin sliding scale in the [place] [facility]. Hemoglobin A1c unreliable in the setting of chronic anemia. Glucoses improving on Lantus 5 units at bedtime, aspart 4
units AC.
Alcoholic cirrhosis -continue lactulose, bowels are moving well.
Epilepsy -continue Keppra.
Essential hypertension -stable.
HCV
Chronic thrombocytopenia -likely due to cirrhosis, splenic sequestration.
Chronic pain syndrome/chronic opiate dependence -on chronic fentanyl patch.
Functional paraparesis -chronic bilateral lower extremity weakness and ambulatory dysfunction. At baseline is able to transfer from wheelchair to commode but does not ambulate.
Hypotension-midodrine with hemodialysis
DVT prophylaxis-SCDs and she is refusing. Not a candidate for pharmacologic prophylaxis due to thrombocytopenia.
Full code
Anticipated Discharge: 24 - 48 hours
Subjective/Interval History
-
Date of Service: January 01, 2024
Denies chest pain or shortness of breath today. Afebrile. No bleeding today
Objective Data
-
Labs:
Laboratory Results
01/01/24
04:48
WBC 6.0
Hgb 8.7 L
Hct 26.9 L
Plt Count 67 L
Sodium 134 L
Potassium 3.9
Chloride 101
Carbon Dioxide 26
BUN 28 H
Creatinine 4.3 H*
Glucose 101 H
Calcium 7.3 L
Vital Signs:
Vital Signs
Temp Pulse Resp BP Pulse Ox
97.8 F 72 19 130/73 98
01/01/24 05:14 01/01/24 06:00 01/01/24 06:00 01/01/24 06:00 01/01/24 06:00
I&O
12/31/23 01/01/24 01/02/24
06:59 06:59 06:59
Intake Total 240 / 240 900 / 900
Balance 240 / 240 900 / 900
[2024-01-01] MEDS: KEPPRA 250 MG PO ×2 (08:55→20:28)
[2024-01-01] MEDS: DUPHALAC/CHRONULAC 20 GRAMS PO ×3 (08:56→22:03)
[2024-01-01] MEDS: RENVELA 800 MG PO ×2 (08:56→11:58)
[2024-01-01] MEDS: DESENEX/MITRAZOL/ZEASORB 1 APPLIC TOPICAL ×2 (08:56→22:03)
[2024-01-01] MEDS: ProAmatine 5 MG PO (08:58)
[2024-01-01] MEDS: TIMOPTIC 0.5% OPHTHALMIC SOLUTION 1 DROP BOTH EYES (08:59)
[2024-01-01] MEDS: NOVOLOG FLEXPEN 4 UNITS SC ×2 (09:00→12:04)
--- NOTE | 2024-01-01 10:43 | CM ---
Patient from [facility] with Hx ESRD on HD. Plan TTE on 01/02. Room air. PICC. Receiving IV meropenum. Seen by wound care nurse. PT Eval; recommend 'PT at [place]'. OT; requires assist of 2, recommend skilled rehab. Per nursing;
confused overnight, forgetful.
Script received from Dr Ricks on 12/29: IV meropenum Qpm x 6 wks, end date 02/03/24 via PICC, for Dx Probable MV endocarditis.
Patient accepted for return to [facility] with IV Abx. The for report [phone], fax [phone].
Plan return to [facility] with ongoing IV Abx, PT/OT when medically ready.
[2024-01-01 11:35] LABS: Glucose - Point of Care 113 mg/dl (70-99)
[2024-01-01] MEDS: RETACRIT 10000 UNITS IV (13:41)
[2024-01-01] MEDS: RETACRIT 2000 UNITS IV (13:41)
--- NOTE | 2024-01-01 14:22 | PTCARENOTE ---
Patient AOx2. Patient is forgetful at times. Bed alarm on and audible. Patient has slow speech. Patient is on RA with SpO2 greater than 92%. NSR with occasional sinus natalia on monitor. Trace B/L LE edema. Incontinent to bowel. Patient had 1 BM.
Patient is anuric. HD received this afternoon. Assist x2 to sit on side of bed. Bed in lowest position, wheels locked, call sandoval within reach.
--- NOTE | 2024-01-01 14:57 | W.PN.NEPH.HD ---
Assessment
-
Seen on HD. no complaints. VSS, access ok
Progress Note - Hemodialysis
-
Date of Service: January 01, 2024
Duration: 30 minutes and 3 hours
Potassium Bath: 3
Calcium Bath: 2.5
Ultrafiltration: Other (1kg)
Heparin: no
EPO: [id number] units
--- NOTE | 2024-01-01 17:32 | PTCARENOTE ---
15: Patient transferred to . Patient belongings sent with patient. Report given to 2N RN. Patient with increased agitation during transfer due to her 'not wanting to leave room'. RN helped settle patient on 2N.
--- NOTE | 2024-01-01 17:32 | PTCARENOTE ---
Patient transferred to with nurse Bailey accompanying; patient confused and agitated per Bailey. Patient thought she was being moved from her home. This nurse made supervisor machining Alley aware.
[2024-01-01 17:48] LABS: Glucose - Point of Care 148 mg/dl (70-99)
[2024-01-01] MEDS: NOVOLOG FLEXPEN SC (17:54)
[2024-01-01] MEDS: RENVELA PO (17:55)
[2024-01-01] MEDS: DUPHALAC/CHRONULAC PO (18:08)
--- NOTE | 2024-01-01 18:41 | PTCARENOTE ---
PT TRANSFER FROM IMU at 17:15 noted to be agitated, calling out loud, screaming, trying to get out the bed. dr. rosenbaum made aware. adin chair and 4 points non-violent restrains ordered. Pt in adin chair now. plan of care ongoing. safet precautions
maintained.
[2024-01-01] MEDS: MERREM 500 MG IV (22:03)
[2024-01-01] MEDS: LANTUS 0.05 UNITS SC (22:03)
[2024-01-01] MEDS: STERILE WATER FOR INJECTION 10 ML IV (22:04)
[2024-01-01] MEDS: REMERON 7.5 MG PO (22:04)
[2024-01-01] MEDS: XALATAN OPHTHALMIC SOLUTION 1 DROP BOTH EYES (22:04)
[2024-01-01 22:06] LABS: Glucose - Point of Care 177 mg/dl (70-99)
[2024-01-02 06:00] VITALS: BMI 23.5
[2024-01-02 06:35] LABS: Ammonia 17 umol/L (9-30)
[2024-01-02 06:40] LABS: % Basophils 0.9 % (0-2); % Eosinophils 4.8 % (0-6); % Immature Granulocytes 0.9 % (0-0.5); % Lymphocytes 22.9 % (20.5-51.1); % Neutrophils 58.5 % (42.2-75.2); Absolute Basophils 0.1 10^3/uL (0-0.2); Absolute Eosinophils 0.3 10^3/uL (0-0.7); Absolute Immature Granulocytes 0.1 10^3/uL (0-0.05); Absolute Lymphocytes 1.5 10^3/uL (1.2-3.4); Absolute Monocytes 0.8 10^3/uL (0.1-0.6); Absolute Neutrophils 3.9 10^3/uL (1.4-6.5); Hematocrit 26.1 % (37.0-47.0); Hemoglobin 8.7 g/dL (12.0-16.0); Mean Corp Hgb Conc. 33.3 g/dL (33.0-37.0); Mean Corpuscular Hgb 30.5 pg (27.0-31.0); Mean Corpuscular Volume 91.6 fL (81.0-99.0); Mean Platelet Volume 10.9 fL (7.4-10.4); Nucleated Red Blood Cells % 0 %; Platelet Count 74 10^3/uL (130-400); Red Blood Cell Count 2.85 10^6/uL (4.20-5.40); Red Cell Dist. Width 17.2 % (11.5-14.5); White Blood Cell Count 6.7 10^3/uL (4.8-10.8)
[2024-01-02 06:59] LABS: ALT (SGPT) 21 U/L (0-35); AST (SGOT) 54 U/L (14-36); Albumin 2.2 g/dl (3.5-5.0); Alkaline Phosphatase 164 U/L (38-126); Blood Urea Nitrogen 15 mg/dl (7-17); Calcium 7.3 mg/dl (8.4-10.2); Carbon Dioxide 25 mmol/L (22-30); Chloride 100 mmol/L (98-107); Direct Bilirubin 0.5 mg/dl (0.0-0.4); Estimated Creatinine Clearance 16 ml/min; Glucose 105 mg/dl (70-99); Potassium 3.8 mmol/L (3.5-5.1); Sodium 134 mmol/L (135-145); Total Bilirubin 1.3 mg/dl (0.2-1.3); Total Protein 5.6 g/dl (6.3-8.2); eGFR 17.53
[2024-01-02 07:45] VITALS: BP 145/59
[2024-01-02 08:15] LABS: Glucose - Point of Care 94 mg/dl (70-99)
[2024-01-02] MEDS: NOVOLOG FLEXPEN-LOW RESISTANCE SC ×2 (08:36→12:59)
--- NOTE | 2024-01-02 08:40 | W.PN.HOSP.TC ---
Addendum entered and electronically signed by Malachi Sanchez MD 01/02/24 13:27:
updated sister today
Original Note:
Today's Communication/Plan
-
Continue antibiotics. Plan to repeat echo in a.m.
Assessment / Plan
Assessment / Plan
Gen-awake, alert, NAD
HEENT-NC, AT, anicteric, clear oral mm
Neck-supple
CV-reg, no M, +S1/S2
Lungs-clear B/L
Abd-soft, NT, ND
Ext-left lower extremity lymphedema, erythema
Musculoskeletal-no cyanosis, clubbing
Skin-warm and dry, bilateral lower extremity hyperpigmentation
Neuro-grossly non-focal
Psych-calm, cooperative
A/P:
Acute TME -likely due to sepsis. Acute TME resolved. She had transient agitation when she was transferred out of IMU yesterday and required restraints but not any longer since she is back to her normal today. Continue PT OT upon transfer. Case
it support manager for discharge disposition.
Acute blood loss anemia/underlying anemia of chronic disease and pancytopenia related to cirrhosis-status post blood transfusion on 12/30. Hemoglobin remains 8.7 today. Continue JUAN per nephrology.
ESBL E. coli sepsis - Repeat blood cx negative. IV meropenem per ID-for 6 weeks until 02/03/2024. Dialysis catheter removed 12/26 after dialysis. Status post vascular catheter on 12/29 and had some complication with bleeding but now stopped.
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 Severe MR noted. PASCALE aborted due to thrombocytopenia and GI variceal risk. CT surgery consulted for opinion regarding potential MVR, deemed
not to be a good surgical candidate due to multiple comorbidities. Cardiology planning to repeat echo tomorrow on Saturday.
Ruled out left lower extremity cellulitis -chronic venous stasis dermatitis and lymphedema.
ESRD on HD -Saturday/Saturday/Saturday. Nephrology following. Plan for HD tomorrow on Saturday
Hypokalemia -back to normal. Continue to replete and trend as needed
Mild L1 vertebral compression deformity -noted on CT. New compared to prior CT of September 2022.
DM 2 without hyperglycemia -she is on glargine insulin 5 units at bedtime, NovoLog insulin sliding scale in the assisted. Hemoglobin A1c unreliable in the setting of chronic anemia. Glucoses improving on Lantus 5 units at bedtime, aspart 4
units AC.
Alcoholic cirrhosis -continue lactulose, bowels are moving well.
Epilepsy -continue Keppra.
Essential hypertension -stable.
HCV
Chronic thrombocytopenia -likely due to cirrhosis, splenic sequestration.
Chronic pain syndrome/chronic opiate dependence -on chronic fentanyl patch.
Functional paraparesis -chronic bilateral lower extremity weakness and ambulatory dysfunction. At baseline is able to transfer from wheelchair to commode but does not ambulate.
Hypotension-midodrine with hemodialysis
DVT prophylaxis-SCDs and she is refusing. Not a candidate for pharmacologic prophylaxis due to thrombocytopenia.
Full code
Anticipated Discharge: Within 24 hours
Subjective/Interval History
-
Date of Service: January 02, 2024
Patient alert and feels back to her baseline today. No chest pain or shortness of breath.
Objective Data
-
Labs:
Laboratory Results
01/02/24
06:02
WBC 6.7
Hgb 8.7 L
Hct 26.1 L
Plt Count 74 L
Sodium 134 L
Potassium 3.8
Chloride 100
Carbon Dioxide 25
BUN 15
Creatinine 2.9 H
Glucose 105 H
Calcium 7.3 L
Total Bilirubin 1.3
AST 54 H
ALT 21
Alkaline Phosphatase 164 H
Vital Signs:
Vital Signs
Temp Pulse Resp BP Pulse Ox
98.5 F 73 16 145/59 99
01/02/24 07:45 01/02/24 07:45 01/02/24 07:45 01/02/24 07:45 01/02/24 07:45
I&O
01/01/24 01/02/24 01/03/24
06:59 06:59 06:59
Intake Total 900 / 900 420 / 420
Balance 900 / 900 420 / 420
[2024-01-02] MEDS: NOVOLOG FLEXPEN 4 UNITS SC ×2 (09:13→17:54)
[2024-01-02] MEDS: DUPHALAC/CHRONULAC 20 GRAMS PO ×4 (09:13→22:21)
[2024-01-02] MEDS: KEPPRA 250 MG PO ×2 (09:18→20:37)
[2024-01-02] MEDS: TIMOPTIC 0.5% OPHTHALMIC SOLUTION 1 DROP BOTH EYES (09:18)
[2024-01-02] MEDS: DESENEX/MITRAZOL/ZEASORB 1 APPLIC TOPICAL ×2 (09:19→20:37)
--- NOTE | 2024-01-02 09:49 | W.PN.NEPH.PH ---
Today's Communication / Plan
-
HD tomorrow
Assessment/Plan
-
Assessment
ESRD
Fever/sepsis
ESLD on chronic midodrine with dialysis
Chronic thrombocytopenia pancytopenia
Paroxysmal atrial fibrillation
Diabetes mellitus type 2
Seizure disorder
Right CVC HD catheter/resection of left upper extremity hybrid AV graft
Plan:
HD tomorrow
abx per ID team
Midodrine with dialysis
No heparin on dialysis
-
-
Date of Service: January 02, 2024
CC / HPI / ROS
-
Chief Complaint:
ESRD
History of Present Illness:
ESRD MWF
Hemodynamically stable
Remains on meropenem for E. coli bacteremia
tolerated HD yesterday, tunnelledCVC placed 12/29
Review of Systems:
Mental status back towards baseline, but not resolved
Denies any other complaints
Labs
-
Labs:
WBC 6.7 10^3/uL (4.8-10.8) 01/02/24 06:02
RBC 2.85 10^6/uL (4.20-5.40) L 01/02/24 06:02
Hgb 8.7 g/dL (12.0-16.0) L 01/02/24 06:02
Hct 26.1 % (37.0-47.0) L 01/02/24 06:02
Plt Count 74 10^3/uL (130-400) L 01/02/24 06:02
Sodium 134 mmol/L (135-145) L 01/02/24 06:02
Potassium 3.8 mmol/L (3.5-5.1) 01/02/24 06:02
Chloride 100 mmol/L (98-107) 01/02/24 06:02
Carbon Dioxide 25 mmol/L (22-30) 01/02/24 06:02
BUN 15 mg/dl (7-17) 01/02/24 06:02
Creatinine 2.9 mg/dL (0.6-1.0) H 01/02/24 06:02
eGFR 17.53 01/02/24 06:02
Glucose 105 mg/dl (70-99) H 01/02/24 06:02
Calcium 7.3 mg/dl (8.4-10.2) L 01/02/24 06:02
Albumin 2.2 g/dl (3.5-5.0) L 01/02/24 06:02
Physical Exam
-
Vital Signs:
Vital Signs
Temp Pulse Resp BP Pulse Ox
98.5 F 73 16 145/59 99
01/02/24 07:45 01/02/24 07:45 01/02/24 07:45 01/02/24 07:45 01/02/24 07:45
Cardiovascular:: Regular rate and rhythm
Respiratory:: Bilateral: CTA
Lung Excursion:: Normal
Abdomen:: Nontender and Soft
Bowel Sounds:: Normal
Extremity Edema:: None: Bilateral:
[2024-01-02] MEDS: RENVELA 800 MG PO ×3 (10:00→17:54)
[2024-01-02] MEDS: PEPCID 20 MG PO (10:20)
--- NOTE | 2024-01-02 10:41 | W.PN.CD ---
Today's Communication / Plan
-
continue ABX
Impression / Plan
-
Severe MR with mobile echodensity on posterior leaflet of MV likely vegetation measuring 2.1 cm x 2.3 cm - echo 12/26/23 with EF 60-65%,
- remains asymptomatic.
- Medically treat for endocarditis
- will hold off on PASCALE given no change in management . There is a possibility of esophageal varices given hx cirrhosis. She is not a surgical candidate
- volume managed with HD.
- plan for Followup echo on Saturday (01/02)
Sepsis - E.coli.
- management per ID, hospitalist.
- tx for endocarditis as above
Hypotension
- on midodrine with HD.
ESRD - on HD, per nephrology.
- M,W,F HD.
- right upper chest HD cath.
Anemia - acute on chronic.
- with chronic thrombocytopenia.
- per hospitalist.
- Hb 8.7 today unchanged vs yesterday
thrombocytopenia - 74k- continue to monitor
Epilepsy - stable on Keppra.
Physical Exam
Vital Signs/Labs
Vital Signs
Temp Pulse Resp BP Pulse Ox
98.5 F 73 16 145/59 99
01/02/24 07:45 01/02/24 07:45 01/02/24 07:45 01/02/24 07:45 01/02/24 07:45
01/01/24 01/02/24 01/03/24
06:59 06:59 06:59
Actual Weight 138 lb 14.259 oz 132 lb 6.4 oz
01/02/24 06:02
01/02/24 06:02
PT 16.6 Sec (11.4-14.6) H 12/31/23 09:12
INR 1.31 12/31/23 09:12
Physical Exam
Constitutional: No acute distress and Comfortable
EENT: Anicteric
Cardiovascular: Rhythm & rate is regular, Systolic murmur present (2-3/6 MR) and S1S2 is normal
Respiratory: Respiratory effort normal and Lungs clear to auscul.
GI: Non tender
Neuro/Psych: AO x 3 (She feels confusion 90% resolved) and Motor deficits absent
Data Reviewed
-
Date of Service: January 02, 2024
--- NOTE | 2024-01-02 11:02 | CM ---
Reviewed the chart notes. Per notes, plan for follow-up echo on Saturday (01/02). IV abx script and PICC line information sent to [facility] via [facility]. CM continues to be available to patient/family and is monitoring medical plan for
needs at discharge.
Plan: Discharge back to [facility] when medically stable. No precert required.
[2024-01-02 12:28] LABS: Glucose - Point of Care 54 mg/dl (70-99)
[2024-01-02 12:49] LABS: Glucose - Point of Care 59 mg/dl (70-99)
[2024-01-02] MEDS: NOVOLOG FLEXPEN SC (12:59)
[2024-01-02 13:13] LABS: Glucose - Point of Care 102 mg/dl (70-99)
[2024-01-02] MEDS: DURAGESIC 12 MCG/HR PATCH 1 PATCH TRANSDERM (15:05)
[2024-01-02 15:16] LABS: Glucose - Point of Care 210 mg/dl (70-99)
[2024-01-02 15:30] VITALS: BP 125/61
[2024-01-02 16:39] LABS: Glucose - Point of Care 208 mg/dl (70-99)
[2024-01-02] MEDS: NOVOLOG FLEXPEN-LOW RESISTANCE 2 UNITS SC (17:54)
[2024-01-02 21:30] LABS: Glucose - Point of Care 64 mg/dl (70-99)
[2024-01-02 22:01] LABS: Glucose - Point of Care 77 mg/dl (70-99)
[2024-01-02] MEDS: LANTUS SC (22:21)
[2024-01-02] MEDS: MERREM 500 MG IV (22:21)
[2024-01-02] MEDS: STERILE WATER FOR INJECTION 10 ML IV (22:21)
[2024-01-02] MEDS: REMERON 7.5 MG PO (22:21)
[2024-01-02] MEDS: XALATAN OPHTHALMIC SOLUTION 1 DROP BOTH EYES (22:22)
[2024-01-02 23:16] VITALS: BP 137/51
[2024-01-02 23:59] LABS: Glucose - Point of Care 187 mg/dl (70-99)
[2024-01-03 02:10] LABS: Glucose - Point of Care 134 mg/dl (70-99)
[2024-01-03 03:04] LABS: Glucose - Point of Care 117 mg/dl (70-99)
[2024-01-03 06:00] VITALS: BMI 23.6
[2024-01-03 07:45] VITALS: BP 132/64
--- NOTE | 2024-01-03 08:04 | W.PN.CD ---
Today's Communication / Plan
-
no further cardiac recommendations
will sign off
Impression / Plan
-
Severe MR with mobile echodensity on posterior leaflet of MV likely vegetation measuring 2.1 cm x 2.3 cm - echo 12/26/23 with EF 60-65%,
- remains asymptomatic.
- Medically treat for endocarditis
- will hold off on PASCALE given no change in management . There is a possibility of esophageal varices given hx cirrhosis. She is not a surgical candidate
- volume managed with HD.
- plan for Followup echo on Saturday (01/02), this will provide new baseline won't change management coordinator.
Sepsis - E.coli.
- management per ID, hospitalist.
- tx for endocarditis as above
Hypotension
- on midodrine with HD.
ESRD - on HD, per nephrology.
- M,W,F HD.
- right upper chest HD cath.
Anemia - acute on chronic.
- with chronic thrombocytopenia.
- per hospitalist.
- Hb 8.7 today unchanged vs yesterday
thrombocytopenia - 74k- continue to monitor
Epilepsy - stable on Keppra.
Subjective:
she is depressed about family stressors but otherwise without complaint
Physical Exam
Vital Signs/Labs
Vital Signs
Temp Pulse Resp BP Pulse Ox
98.3 F 55 16 137/51 96
01/03/24 06:17 01/02/24 23:16 01/02/24 23:16 01/02/24 23:16 01/02/24 23:16
01/02/24 01/03/24 01/04/24
06:59 06:59 06:59
Actual Weight 60.056 kg 60.509 kg
PT 16.6 Sec (11.4-14.6) H 12/31/23 09:12
INR 1.31 12/31/23 09:12
Physical Exam
Constitutional: No acute distress
Cardiovascular: Rhythm & rate is regular, Pedal edema is absent and Systolic murmur present (3/6 hsm at the apex)
Respiratory: Respiratory effort normal, Lungs clear to auscul., Wheeze Absent, Crackles Absent and Rhonchi Absent
Neuro/Psych: AO x 3
Data Reviewed
-
Date of Service: January 03, 2024
Medical Decision Making: Review of Case with other Provider (Dr Sanchez will sign off)
[2024-01-03 08:35] LABS: Glucose - Point of Care 93 mg/dl (70-99)
--- NOTE | 2024-01-03 08:35 | W.PN.HOSP.TC ---
Today's Communication/Plan
-
Discharge planning
Assessment / Plan
Assessment / Plan
Gen-awake, alert, NAD
HEENT-NC, AT, anicteric, clear oral mm
Neck-supple
CV-reg, no M, +S1/S2
Lungs-clear B/L
Abd-soft, NT, ND
Ext-left lower extremity lymphedema, erythema
Musculoskeletal-no cyanosis, clubbing
Skin-warm and dry, bilateral lower extremity hyperpigmentation
Neuro-grossly non-focal
Psych-calm, cooperative
A/P:
Acute TME -likely due to sepsis. Acute TME resolving. investment banking manager for discharge disposition.
Acute blood loss anemia/underlying anemia of chronic disease and pancytopenia related to cirrhosis-status post blood transfusion on 12/30. Hemoglobin remains 8.3 today. Continue JUAN per nephrology.
ESBL E. coli sepsis - Repeat blood cx negative. IV meropenem per ID-for 6 weeks until 02/03/2024. Dialysis catheter removed 12/26 after dialysis. Status post vascular catheter on 12/29 and had some complication with bleeding but now stopped.
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 Severe MR noted. PASCALE aborted due to thrombocytopenia and GI variceal risk. CT surgery consulted for opinion regarding potential MVR, deemed
not to be a good surgical candidate due to multiple comorbidities. Cardiology did repeat echocardiogram today and reviewed findings. Cardiology okay for discharge.
Ruled out left lower extremity cellulitis -chronic venous stasis dermatitis and lymphedema.
ESRD on HD -Saturday/Saturday/Saturday. Nephrology following. Plan for HD today
Hypokalemia -back to normal. Continue to replete and trend as needed
Mild L1 vertebral compression deformity -noted on CT. New compared to prior CT of September 2022.
DM 2 without hyperglycemia -she is on glargine insulin 5 units at bedtime, NovoLog insulin sliding scale in the half-way. Hemoglobin A1c unreliable in the setting of chronic anemia. Glucoses improving on Lantus 5 units at bedtime, aspart 4
units AC.
Alcoholic cirrhosis -continue lactulose, bowels are moving well.
Epilepsy -continue Keppra.
Essential hypertension -stable.
HCV
Chronic thrombocytopenia -likely due to cirrhosis, splenic sequestration.
Chronic pain syndrome/chronic opiate dependence -on chronic fentanyl patch.
Functional paraparesis -chronic bilateral lower extremity weakness and ambulatory dysfunction. At baseline is able to transfer from wheelchair to commode but does not ambulate.
Hypotension-midodrine with hemodialysis
DVT prophylaxis-SCDs and she is refusing. Not a candidate for pharmacologic prophylaxis due to thrombocytopenia.
Full code
Anticipated Discharge: Today
Subjective/Interval History
-
Date of Service: January 03, 2024
Patient with no new complaints. Mild delirium on and off.
Objective Data
-
Labs:
Laboratory Results
01/03/24
07:00
Hgb Pending
Hct Pending
Sodium Pending
Potassium Pending
Chloride Pending
Carbon Dioxide Pending
Vital Signs:
Vital Signs
Temp Pulse Resp BP Pulse Ox
98.3 F 55 16 137/51 96
01/03/24 06:17 01/02/24 23:16 01/02/24 23:16 01/02/24 23:16 01/02/24 23:16
I&O
01/02/24 01/03/24 01/04/24
06:59 06:59 06:59
Intake Total 420 / 420 1020 / 1020
Balance 420 / 420 1020 / 1020
[2024-01-03] MEDS: NOVOLOG FLEXPEN-LOW RESISTANCE SC ×3 (08:46→17:15)
[2024-01-03] MEDS: DUPHALAC/CHRONULAC 20 GRAMS PO ×2 (09:18→13:08)
[2024-01-03] MEDS: KEPPRA 250 MG PO (09:18)
[2024-01-03] MEDS: RENVELA 800 MG PO ×2 (09:18→13:08)
[2024-01-03] MEDS: TIMOPTIC 0.5% OPHTHALMIC SOLUTION 1 DROP BOTH EYES ×2 (09:19)
[2024-01-03] MEDS: DESENEX/MITRAZOL/ZEASORB 1 APPLIC TOPICAL (09:20)
[2024-01-03] MEDS: NOVOLOG FLEXPEN 4 UNITS SC ×2 (09:20→13:08)
[2024-01-03] MEDS: ProAmatine 5 MG PO ×2 (09:23→13:07)
--- NOTE | 2024-01-03 11:43 | CM ---
Addendum entered by Christine Rivas RN 01/03/24 15:02:
IMM on chart.
Original Note:
Reviewed the chart notes and spoke with the patient at the bedside. Patient scheduled for HD today. CM continues to be available to patient/family and is monitoring medical plan for needs at discharge.
Plan: Discharge back to [facility] when medically stable.
Call report to: [phone]
Fax report to: [phone]
Medical and transport forms on chart.
[2024-01-03 12:40] LABS: Hematocrit 25.6 % (37.0-47.0); Hemoglobin 8.3 g/dL (12.0-16.0)
[2024-01-03 12:54] LABS: Carbon Dioxide 26 mmol/L (22-30); Chloride 97 mmol/L (98-107); Potassium 3.9 mmol/L (3.5-5.1); Sodium 132 mmol/L (135-145)
[2024-01-03 13:04] LABS: Glucose - Point of Care 96 mg/dl (70-99)
[2024-01-03] MEDS: FLEXBUMIN 25% FOR HEMODIALYSIS 12.5 GRAMS IV (13:15)
[2024-01-03] MEDS: MANNITOL 25% 12.5 GRAMS IV (13:16)
[2024-01-03] MEDS: RETACRIT 12000 UNITS IV (13:17)
--- NOTE | 2024-01-03 13:25 | W.PN.NEPH.HD ---
Assessment
-
Paitent seen on HD
sbp at 89 at 2kg u/f, reduced to 1kg
patient eating lunch on HD
Progress Note - Hemodialysis
-
Date of Service: January 03, 2024
Duration: 30 minutes and 3 hours
Potassium Bath: 3
Calcium Bath: 2.5
Opti-Dialyzer: 160
Ultrafiltration: Other (decrease to 1kg as sbp dropped to ~89 systolic)
Blood Flow: 400
Dialysate Flow: 600
Heparin: none
EPO: 12,000
--- NOTE | 2024-01-03 14:13 | W.DCSUMMARY ---
Discharge Summary
Discharge Data
Date of Admission: 12/24/23
Date of Discharge: 01/03/24
-
Pending Results: No
Hospital Course
Patient is 63 years old female with history of CVA, hypertension, end-stage renal disease on hemodialysis, thrombocytopenia, alcoholic cirrhosis, seizures, presented to the hospital mental status changes and fevers. Patient was placed on
broad-spectrum IV antibiotics. ID consulted. Etiology of her active infection was narrowed down to mitral valve infective endocarditis. She had positive ESBL E. coli blood cultures on 12/23 and follow-up blood cultures on 12/24 no growth. She
also has a catheter tip of her dialysis culture negative. She had a replacement of her vascular access for hemodialysis. Unable to do PASCALE due to her risks. Cardiothoracic surgery evaluated the patient and felt that she was not a candidate for
surgery. She had a follow-up echocardiogram upon discharge which shows normal EF, improve on the MR and vegetation decreasing in size and mitral stenosis about the same. Cardiology and ID have cleared her for discharge. Her encephalopathy has
improved although she does remain with some mild delirium. She had hemodialysis today and blood pressure dropped a little bit and responded to midodrine so BP came back to normal 124/51. Patient is being discharged in stable condition today to
skilled facility.
Discharge duration: 41 minutes
Discharge Plan
-
Patient Disposition: Fdc/SNF
Discharge Diagnosis/Procedures: Toxic metabolic encephalopathy. Acute blood loss anemia and anemia of chronic disease. Pancytopenia. Extended spectrum beta-lactamase Escherichia coli sepsis. Mitral valve infective endocarditis. End-stage renal
disease on hemodialysis. Cirrhosis.
Diet: Low Cholesterol, Low Sodium, Diabetic, Carb Controlled and Restrict fluids to 48 oz
Activity: As tolerated
Blood Work: Please PCP to order CBC, BMP within 1 week
Activity Restrictions/Additional Instructions:
Wound Care Instructions
R leg: clean with saline, dry dressing change q 2-3 days and prn soilage
L arm: clean with saline, Vaseline gauze and dry dressing, change q 2-3 days and prn drainage.
Fungal powder to skin folds bid
barrier cream to buttocks daily and prn soilage
Air mattress recommended if doesn't already have one since bed bound.
Referrals:
Dakota Becerril I., DO [Family Provider] - in less than 1 week
Teo Corona MD [Active] - in two to four weeks
Adonay Nguyen MD [Active] - in two to four weeks
Lizeth Ricks MD [Active] - in four to six weeks
Prescriptions:
New
meropenem 500 mg Recon Soln
500 mg IV Q24H Qty: 25 0RF
Rx Instructions:
Use through 02/03/2024
Continued
levetiracetam 250 MG tablet
250 mg PO BID
bisacodyl [OneLAX Bisacodyl] 10 MG suppository
10 mg NE DAILYPRN PRN (Reason: CONSTIPATION)
ondansetron HCl 4 mg Tablet
4 mg PO Q6HPRN PRN (Reason: NAUSEA)
lactulose 30 ML solution
30 ml PO QID
latanoprost 0.005 % drops
1 drp BOTH EYES HS
midodrine 5 mg Tablet
5 mg PO MOWEFR
timolol maleate 0.5 % drops
1 drp BOTH EYES DAILY
sevelamer carbonate [Renvela] 800 mg Tablet
800 mg PO AC
midodrine 5 mg Tablet
5 mg PO Q8HPRN PRN (Reason: SBP < 90 mmHg) Qty: 0 0RF
insulin aspart U-100 [Novolog FlexPen U-100 Insulin] 100 unit/mL (3 mL) insulin pen
1 sliding scale dose SC AC
Patient Comments:
med
Rx Instructions:
BS-200=0 units; 201-250= 2 units; 251-300= 4 units; 301-350= 6 units; 351-400= 8 units; 401= Call MD
insulin glargine [Lantus U-100 Insulin] 100 unit/mL Solution
5 unit SC HS
famotidine [Pepcid] 20 mg Tablet
10 mg PO Q48H
trolamine salicylate [Aspercreme] 10 % Cream
1 applic TOPICAL DAILY
Triphrocaps 1 mg Capsule
1 cap PO DAILY
acetaminophen [Tylenol] 325 mg Tablet
650 mg PO Q6HPRN PRN (Reason: mild pain)
mirtazapine 7.5 mg Tablet
7.5 mg PO HS
fentanyl 12 mcg/hr Patch 72 Hour
1 patch TRANSDERMAL Q72H Qty: 1 0RF
Discontinued
amlodipine [Norvasc] 5 mg Tablet
5 mg PO HS
Discharge Orders:
Discharge Patient (As Directed); Ordered 01/03/24
Ordered By: Malachi Sanchez
Discharge Date and Time
Discharge Date/Time: 01/03/24 17:08
Print Language: PORTUGUESE
--- NOTE | 2024-01-03 15:34 | W.PN.ID1 ---
Date of Service
Date of Service: January 03, 2024
Today's Communication
- continue meropenem, plan 6 week course through 02/02
- TTE - improved severity of MR and size of vegetation
- stable for dc from ID perspective
Assessment / Plan
ESBL Ecoli Bacteremia
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
ESRD on HD via HD catheter
Anasarca
Epilepsy
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
MDRO infection
- HD catheter removed 12/26. Cath tip cx finalized negative; for replacement today
- as patient will require daily antibiotics, PICC also ordered
- script given to child support case officer 12/29
- weekly labs to be sent to my office
- continue meropenem, plan 6 week course through 02/02
- TTE - improved severity of MR and size of vegetation
- stable for dc from ID perspective
Prognosis overall poor
Chief Complaint
-: Bacteremia
Subjective / Review of Systems
afebrile
bp stable
tolerating current therapy
Vital Signs / Physical Exam
Vital Signs
Vital Signs
Temp Pulse Resp BP Pulse Ox
98.1 F 74 16 89/66 98
01/03/24 07:45 01/03/24 07:45 01/03/24 07:45 01/03/24 13:07 01/03/24 07:45
Physical Exam
Constitutional: No Acute Distress
Cardiovascular: Regular Rate and S1/S2; Negative Murmur or Rub
Pulmonary: Clear and Symmetric; Negative Wheezes or Rales
Gastrointestinal: Soft, Non Tender, Non Distended and Normal Bowel Sounds
Skin: Warm and Dry; Negative Rash or Jaundice
Lines: HD Cath (no erythema)
Objective Data
Lab Data
Lab Results
01/03/24 12:20
01/03/24 12:20
PT 16.6 Sec (11.4-14.6) H 12/31/23 09:12
INR 1.31 12/31/23 09:12
Estimated Creat Clear 16 ml/min 01/02/24 06:02
Lactic Acid 1.9 mmol/L (0.7-2.0) 12/25/23 04:53
Total Bilirubin 1.3 mg/dl (0.2-1.3) 01/02/24 06:02
AST 54 U/L (14-36) H 01/02/24 06:02
ALT 21 U/L (0-35) 01/02/24 06:02
Alkaline Phosphatase 164 U/L (38-126) H 01/02/24 06:02
Most recent labs reviewed.
Micro Results:
12/25/23 13:46 Blood Culture - Final
Blood/Venous No Growth - Final Report
12/25/23 13:06 Blood Culture - Final
Blood/Venous No Growth - Final Report
12/27/23 14:09 Catheter Tip Culture - Final
Catheter Tip No Growth After 72 Hours
12/24/23 08:37 Blood Culture - Final
Blood/Venous Escherichia coli - ESBL
Gram Stain - Final
12/24/23 08:37 Blood Culture - Final
Blood/Venous Escherichia coli - ESBL
Gram Stain - Final
12/24/23 17:53 MRSA Screen - Final
Nose No Methicillin Resistant Staphylococcus aureus isolated.
12/24/23 10:41 Influenza Types A & B ([facility]) - Final
Nasal Swab Negative for Influenza A & B, NAAT
Negative results must be combined with clinical observations
and patient history.
Nucleic Acid Amplification test (NAAT)performed on the
[employer] platform.
[2024-01-03 15:40] VITALS: BP 124/51
[2024-01-03] MEDS: HEPARIN 3900 UNITS INTRACATH (16:40)
[2024-01-03] MEDS: NOVOLOG FLEXPEN SC (17:15)
[2024-01-03] MEDS: RENVELA PO (17:19)
== END 2024-01-03 17:08 | DRG 871 ==
LOC: 2 NORTH 13:26
PROVIDERS: Internal Medicine; Internal Medicine Cardiovascular Disease; Nurse Practitioner Family; Radiology Diagnostic Radiology; Radiology Vascular & Interventional Radiology; Registered Nurse; Specialist; ADMITTING PHYSICIAN Hospitalist; ATTENDING PHYSICIAN Hospitalist; CONSULT PHYSICIAN Internal Medicine Cardiovascular Disease; CONSULT PHYSICIAN Specialist; CONSULT PHYSICIAN Student in an Organized Health Care Education/Training Program; CONSULT PHYSICIAN Thoracic Surgery (Cardiothoracic Vascular Surgery); EMERGENCY PHYSICIAN Emergency Medicine; FAMILY PHYSICIAN Internal Medicine
PROC: 5A1D70Z Performance of Urinary Filtration, Intermittent, Less than 6 Hours Per Day (ICD-10-PCS; 2023-12-25)
PROC: 0JPT0XZ Removal of Tunneled Vascular Access Device from Trunk Subcutaneous Tissue and Fascia, Open Approach (ICD-10-PCS; 2023-12-27)
PROC: 05HM33Z Insertion of Infusion Device into Right Internal Jugular Vein, Percutaneous Approach (ICD-10-PCS; 2023-12-30)
PROC: 02HV33Z Insertion of Infusion Device into Superior Vena Cava, Percutaneous Approach (ICD-10-PCS; 2023-12-30)
PROC: 30243N1 Transfusion of Nonautologous Red Blood Cells into Central Vein, Percutaneous Approach (ICD-10-PCS; 2023-12-31)
DX: A41.51 Sepsis due to Escherichia coli [E. coli] (principal); G92.8 Other toxic encephalopathy; N18.6 End stage renal disease; I33.0 Acute and subacute infective endocarditis; I12.0 Hypertensive chronic kidney disease with stage 5 chronic kidney disease or end stage renal disease; J98.11 Atelectasis; D61.818 Other pancytopenia; E87.20 Acidosis, unspecified; N25.81 Secondary hyperparathyroidism of renal origin; J90 Pleural effusion, not elsewhere classified; F11.20 Opioid dependence, uncomplicated; Z16.12 Extended spectrum beta lactamase (ESBL) resistance; D63.8 Anemia in other chronic diseases classified elsewhere; K70.30 Alcoholic cirrhosis of liver without ascites; K72.10 Chronic hepatic failure without coma; R26.2 Difficulty in walking, not elsewhere classified; E87.6 Hypokalemia; I48.0 Paroxysmal atrial fibrillation; F10.21 Alcohol dependence, in remission; G40.909 Epilepsy, unspecified, not intractable, without status epilepticus; F32.A Depression, unspecified; H40.9 Unspecified glaucoma; K21.9 Gastro-esophageal reflux disease without esophagitis; L89.151 Pressure ulcer of sacral region, stage 1; G89.4 Chronic pain syndrome; I89.0 Lymphedema, not elsewhere classified; F44.4 Conversion disorder with motor symptom or deficit; R13.10 Dysphagia, unspecified; I87.8 Other specified disorders of veins; R94.31 Abnormal electrocardiogram [ECG] [EKG]; B19.20 Unspecified viral hepatitis C without hepatic coma; E11.65 Type 2 diabetes mellitus with hyperglycemia; E11.22 Type 2 diabetes mellitus with diabetic chronic kidney disease; Z99.2 Dependence on renal dialysis; Z86.16 Personal history of COVID-19; Z86.19 Personal history of other infectious and parasitic diseases; Z79.4 Long term (current) use of insulin; Z86.73 Personal history of transient ischemic attack (TIA), and cerebral infarction without residual deficits; Z87.891 Personal history of nicotine dependence; Z11.52 Encounter for screening for COVID-19
CPT/HCPCS: 93308; 36558; 36589; 71045; 74176; 76705; 76937; 77001; 80048; 80051; 80053; 80202; 82140; 82248; 82962; 83036; 83605; 83690; 84132; 85014; 85018; 85025; 85610; 86706; 86850; 86900; 86901; 86920; 87040; 87070; 87084; 87149; 87186; 87205; 87340; 87502; 87811; 93005; 93306; 93321; 93325; 93971; 96361; 96365; 97163; 97166; 97530; 97535; 99152; 99153; 99285; C1750; G0257; P9016; P9047; Q5106

== ENCOUNTER 2024-02-25 14:41 | Emergency (ER) | payer MEDICARE, OTHER, SELFPAY ==
[2024-02-25 14:45] VITALS: BP 154/102
--- NOTE | 2024-02-25 14:55 | ED.GENMED ---
ED Provider Triage
<Mena Singh PA-C - Last Filed: 02/25/24 14:57>
-
Patient seen by provider in Triage?: Seen in Triage
A medical screening examination has been initiated by a qualified medical provider. Based on the assessment performed at this time, it has been determined that an emergent medical condition may exist and the patient has been informed that further
medical evaluation and possible additional diagnostic testing may be needed.
HPI: This is a medical evaluation conducted in person to initiate diagnostic evaluation and provide initial therapeutics. Please see further documentation by the treating clinician.
GENERAL: Alert , generalized weakness, pale
ENT: No visible abnormalities
LUNGS: No acute respiratory distress
NEUROLOGICAL: Alert and oriented
SKIN: Skin intact. No visible changes.
MUSCULOSKELETAL: generalized weaknes; can move extremities; fatigue; edema
PSYCH: Normal and appropriate interaction.
63-year-old female sent from [facility] doctor after being examined today and noted to be edematous on her arms and legs and generalized fatigue. Patient says she feels very weak. She has mild chest discomfort. Patient last was dialyzed
yesterday and had a full treatment. She apparently was recently hospitalized for endocarditis. There has been not been any obvious fever. On exam she looks older than stated age, generally weak, pale
She is hypertensive. Patient will be worked up with labs and EKG to start
History of Present Illness
<Mena Singh PA-C - Last Filed: 02/25/24 14:57>
General
Chief Complaint: Swelling
Time Seen by Provider: 02/25/24 16:19
<Douglas Fischer PA-C - Last Filed: 02/25/24 18:49>
General
Source: patient
Exam Limitations: none
History of Present Illness
History of Present Illness:
63-year-old female Saturday dialysis patient presents from [facility] with fatigue and diarrhea over the past several days. She had a full session of dialysis yesterday. She denies any dark or tarry stools. No measurable fever.
She denies any abdominal pain or chest pain. No other complaints at this time
Past History
<Mena Singh PA-C - Last Filed: 02/25/24 14:57>
Past History
ED Past Medical History: CVA, GERD, IDDM, Renal failure, Seizures and Other (End-stage renal disease with dialysis MWF, disequilibrium syndrome, cirrhosis, hepatitis C, UTI)
Social History
Tobacco: Non-smoker
Alcohol: None
Drug: None
Personal: Single
Living: skilled nursing
Employment: Not employed
Family History
Family History: Unable to obtain
Phy Exam
<Douglas Fischer PA-C - Last Filed: 02/25/24 18:49>
Physical Exam
Physical Exam:
General: well appearing female, no acute respiratory distress
HEENT: NC/AT
heart: RRR, no murmurs
Lungs; CTA bilaterally
Abd: soft, nontender
Ext: mild edema b/l LE
Neuro: Alert, conversing appropriately
Skin: pale, dry
Scores
<Douglas Fischer PA-C - Last Filed: 02/25/24 18:49>
Heart Failure Risk
Heart Failure Risk Score: Not Applicable
Course
<MARIO Hendricks Last Filed: 02/25/24 14:57>
Orders/Labs/Results
Orders:
Orders
02/25/24 14:55
Electrocardiogram (*1) Urgent
Reason for Study: Fatigue / Weakness
EKG- Treatment ONCE
02/25/24 15:12
Type+Screen Urgent
Complete Blood Count/With Diff Urgent
Comprehensive Metabolic Panel Urgent
Magnesium Urgent
NT-proBNP Urgent
TSH Reflex To Free T4 Urgent
Troponin I Urgent
02/25/24 16:27
Blood Bank Products [* Blood Bank Products] Urgent
Blood Bank Products: *Packed RBC Leuko(PRBC's)
Quantity: 1
Transfuse Today: Yes
Reason: Anemia
02/25/24 16:41
Norovirus by PCR Urgent
BG Source: Feces/Stool
Specimen Description:
STOOL [C difficile Antigen & Toxins] Urgent
BG Source: Feces/Stool
Specimen Description:
Stool Culture Urgent
BG Source: Feces/Stool
Specimen Description:
Abnormal Lab Results
02/25/24
15:12
WBC 13.4 H 10^3/uL
(4.8-10.8)
RBC 2.32 L 10^6/uL
(4.20-5.40)
Hgb 6.7 L* g/dL
(12.0-16.0)
Hct 20.1 L* %
(37.0-47.0)
RDW 17.9 H %
(11.5-14.5)
Plt Count 71 L 10^3/uL
(130-400)
MPV 11.1 H fL
(7.4-10.4)
Abs Immat Gran (auto) 0.1 H 10^3/uL
(0-0.05)
Absolute Neuts (auto) 11.8 H 10^3/uL
(1.4-6.5)
Absolute Lymphs (auto) 0.8 L 10^3/uL
(1.2-3.4)
Absolute Monos (auto) 0.7 H 10^3/uL
(0.1-0.6)
Immature Gran % 0.6 H %
(0-0.5)
Neutrophils % 88.0 H %
(42.2-75.2)
Lymphocytes % 5.8 L %
(20.5-51.1)
Sodium 132 L mmol/L
(135-145)
Carbon Dioxide 20 L mmol/L
(22-30)
Creatinine 3.4 H mg/dL
(0.6-1.0)
Glucose 113 H mg/dl
(70-99)
Calcium 7.8 L mg/dl
(8.4-10.2)
Total Bilirubin 1.5 H mg/dl
(0.2-1.3)
AST 59 H U/L
(14-36)
Alkaline Phosphatase 231 H U/L
(38-126)
Troponin I 0.046 H* ng/ml
Total Protein 5.4 L g/dl
(6.3-8.2)
Albumin 1.8 L g/dl
(3.5-5.0)
Crossmatch IS Only See Detail
02/25/24 15:12
02/25/24 15:12
Vital Signs
Initial and Last Documented VS:
Initial Vital Signs
Temp Pulse Resp BP Pulse Ox
97.9 F 85 20 154/102 98
02/25/24 14:45 02/25/24 14:45 02/25/24 14:45 02/25/24 14:45 02/25/24 14:45
Last Documented Vital Signs
Temp Pulse Resp BP Pulse Ox
98.8 F 86 19 103/50 100
02/25/24 18:25 02/25/24 18:25 02/25/24 18:25 02/25/24 18:25 02/25/24 18:25
Oumarlt;Douglas Fischer PA-C - Last Filed: 02/25/24 18:49>
Orders/Labs/Results
Orders:
Orders
02/25/24 14:55
Electrocardiogram (*1) Urgent
Reason for Study: Fatigue / Weakness
EKG- Treatment ONCE
02/25/24 15:12
Type+Screen Urgent
Complete Blood Count/With Diff Urgent
Comprehensive Metabolic Panel Urgent
Magnesium Urgent
NT-proBNP Urgent
TSH Reflex To Free T4 Urgent
Troponin I Urgent
02/25/24 16:27
Blood Bank Products [* Blood Bank Products] Urgent
Blood Bank Products: *Packed RBC Leuko(PRBC's)
Quantity: 1
Transfuse Today: Yes
Reason: Anemia
02/25/24 16:41
Norovirus by PCR Urgent
BG Source: Feces/Stool
Specimen Description:
STOOL [C difficile Antigen & Toxins] Urgent
BG Source: Feces/Stool
Specimen Description:
Stool Culture Urgent
BG Source: Feces/Stool
Specimen Description:
Abnormal Lab Results
02/25/24
15:12
WBC 13.4 H 10^3/uL
(4.8-10.8)
RBC 2.32 L 10^6/uL
(4.20-5.40)
Hgb 6.7 L* g/dL
(12.0-16.0)
Hct 20.1 L* %
(37.0-47.0)
RDW 17.9 H %
(11.5-14.5)
Plt Count 71 L 10^3/uL
(130-400)
MPV 11.1 H fL
(7.4-10.4)
Abs Immat Gran (auto) 0.1 H 10^3/uL
(0-0.05)
Absolute Neuts (auto) 11.8 H 10^3/uL
(1.4-6.5)
Absolute Lymphs (auto) 0.8 L 10^3/uL
(1.2-3.4)
Absolute Monos (auto) 0.7 H 10^3/uL
(0.1-0.6)
Immature Gran % 0.6 H %
(0-0.5)
Neutrophils % 88.0 H %
(42.2-75.2)
Lymphocytes % 5.8 L %
(20.5-51.1)
Sodium 132 L mmol/L
(135-145)
Carbon Dioxide 20 L mmol/L
(22-30)
Creatinine 3.4 H mg/dL
(0.6-1.0)
Glucose 113 H mg/dl
(70-99)
Calcium 7.8 L mg/dl
(8.4-10.2)
Total Bilirubin 1.5 H mg/dl
(0.2-1.3)
AST 59 H U/L
(14-36)
Alkaline Phosphatase 231 H U/L
(38-126)
Troponin I 0.046 H* ng/ml
Total Protein 5.4 L g/dl
(6.3-8.2)
Albumin 1.8 L g/dl
(3.5-5.0)
Crossmatch IS Only See Detail
02/25/24 15:12
02/25/24 15:12
Vital Signs
Initial and Last Documented VS:
Initial Vital Signs
Temp Pulse Resp BP Pulse Ox
97.9 F 85 20 154/102 98
02/25/24 14:45 02/25/24 14:45 02/25/24 14:45 02/25/24 14:45 02/25/24 14:45
Last Documented Vital Signs
Temp Pulse Resp BP Pulse Ox
98.8 F 86 19 103/50 100
02/25/24 18:25 02/25/24 18:25 02/25/24 18:25 02/25/24 18:25 02/25/24 18:25
<Douglas Fischer PA-C - Last Filed: 02/25/24 18:49>
MDM/Problems Addressed
Differential Diagnosis Includes:
Patient has fatigue and loose stools. She had a full session of dialysis yesterday. No loose stool yet but stool cultures ordered. Hemoglobin is 6.7 her baseline is around 8. A unit of blood was ordered for transfusion. Given her history of
dialysis shock to be given this slowly and attempt to avoid volume overload status. Will plan on admitting for symptomatic anemia in a dialysis patient.
<Douglas Fischer PA-C - Last Filed: 02/25/24 18:49>
*Critical Care Note
Total Time (30-74mins, 75-104mins- exclusive of procedures): Not Applicable
<Douglas Fischer PA-C - Last Filed: 02/25/24 18:49>
Update Note
Update Note:
After speaking with the hospitalist. We decided to hold off on admission as her hemoglobin is fairly close to baseline. She was given a slow unit of blood and will be discharged back to facility to have her dialysis scheduled for tomorrow
ED Attending Note
<Mena Singh PA-C - Last Filed: 02/25/24 14:57>
-
Portions of this chart may have been created with voice recognition software.� Occasional wrong word or��sound alike� substitutions may have occurred due to the inherent limitations of voice recognition software.
Discharge Plan
Departure
Discharge Problem:
Anemia
Prescriptions:
No Action
levetiracetam 250 MG tablet
250 mg PO BID
bisacodyl [OneLAX Bisacodyl] 10 MG suppository
10 mg NE DAILYPRN PRN (Reason: CONSTIPATION)
ondansetron HCl 4 mg Tablet
4 mg PO Q6HPRN PRN (Reason: NAUSEA)
lactulose 30 ML solution
30 ml PO QID
latanoprost 0.005 % drops
1 drp BOTH EYES HS
midodrine 5 mg Tablet
5 mg PO MOWEFR
timolol maleate 0.5 % drops
1 drp BOTH EYES DAILY
sevelamer carbonate [Renvela] 800 mg Tablet
800 mg PO AC
midodrine 5 mg Tablet
5 mg PO Q8HPRN PRN (Reason: SBP < 90 mmHg) Qty: 0 0RF
insulin aspart U-100 [Novolog FlexPen U-100 Insulin] 100 unit/mL (3 mL) insulin pen
1 sliding scale dose SC AC
Patient Comments:
med
Rx Instructions:
BS-200=0 units; 201-250= 2 units; 251-300= 4 units; 301-350= 6 units; 351-400= 8 units; 401= Call MD
insulin glargine [Lantus U-100 Insulin] 100 unit/mL Solution
5 unit SC HS
famotidine [Pepcid] 20 mg Tablet
10 mg PO Q48H
trolamine salicylate [Aspercreme] 10 % Cream
1 applic TOPICAL DAILY
acetaminophen [Tylenol] 325 mg Tablet
650 mg PO Q6HPRN PRN (Reason: mild pain)
mirtazapine 7.5 mg Tablet
7.5 mg PO HS
fentanyl 12 mcg/hr Patch 72 Hour
1 patch TRANSDERMAL Q72H Qty: 1 0RF
Nephrocaps 1 mg Capsule
1 cap PO DAILY
Activity Restrictions/Additional Instructions:
Your hemoglobin was low today please follow-up as planned for your dialysis.
Interventions
Interventions:
*Risk Screen - Suicide Last Done: 02/25/24 14:45
*General Assessment Last Done: 02/25/24 14:45
*Neglect/Abuse Screening Last Done: 02/25/24 14:45
ED- Cardiac Assessment Last Done: 02/25/24 16:54
ED- Pulmonary Assessment Last Done: 02/25/24 16:54
Discharge Date and Time
Print Language: NIUEAN
[2024-02-25 15:45] LABS: % Basophils 0.1 % (0-2); % Eosinophils 0.1 % (0-6); % Immature Granulocytes 0.6 % (0-0.5); % Lymphocytes 5.8 % (20.5-51.1); % Monocytes 5.4 % (1.7-9.3); Absolute Immature Granulocytes 0.1 10^3/uL (0-0.05); Absolute Lymphocytes 0.8 10^3/uL (1.2-3.4); Absolute Monocytes 0.7 10^3/uL (0.1-0.6); Absolute Neutrophils 11.8 10^3/uL (1.4-6.5); Hematocrit 20.1 % (37.0-47.0); Hemoglobin 6.7 g/dL (12.0-16.0); Mean Corp Hgb Conc. 33.3 g/dL (33.0-37.0); Mean Corpuscular Hgb 28.9 pg (27.0-31.0); Mean Corpuscular Volume 86.6 fL (81.0-99.0); Mean Platelet Volume 11.1 fL (7.4-10.4); Nucleated Red Blood Cells % 0 %; Platelet Count 71 10^3/uL (130-400); Red Blood Cell Count 2.32 10^6/uL (4.20-5.40); Red Cell Dist. Width 17.9 % (11.5-14.5); White Blood Cell Count 13.4 10^3/uL (4.8-10.8)
[2024-02-25 15:55] LABS: ALT (SGPT) 30 U/L (0-35); AST (SGOT) 59 U/L (14-36); Albumin 1.8 g/dl (3.5-5.0); Alkaline Phosphatase 231 U/L (38-126); Blood Urea Nitrogen 16 mg/dl (7-17); Calcium 7.8 mg/dl (8.4-10.2); Carbon Dioxide 20 mmol/L (22-30); Chloride 106 mmol/L (98-107); Glucose 113 mg/dl (70-99); Magnesium 2.1 mg/dl (1.6-2.3); Potassium 3.5 mmol/L (3.5-5.1); Sodium 132 mmol/L (135-145); Total Bilirubin 1.5 mg/dl (0.2-1.3); Total Protein 5.4 g/dl (6.3-8.2); eGFR 14.49
[2024-02-25 15:58] LABS: NT-proBNP 8590 pg/ml; Troponin I 0.046 ng/ml
[2024-02-25 16:17] LABS: TSH Reflex To Free T4 4.16 uIU/ml (0.47-4.68)
[2024-02-25 18:06] VITALS: BP 100/48
[2024-02-25 18:25] VITALS: BP 103/50
[2024-02-25 21:33] VITALS: BP 124/53
[2024-02-25 22:17] VITALS: BMI 40.1
== END 2024-02-25 22:34 | disposition home or self-care (01) ==
LOC: EMR 14:41
PROVIDERS: Physician Assistant; EMERGENCY PHYSICIAN Emergency Medicine; FAMILY PHYSICIAN Internal Medicine
DX: D64.9 Anemia, unspecified (principal); K21.9 Gastro-esophageal reflux disease without esophagitis; I12.0 Hypertensive chronic kidney disease with stage 5 chronic kidney disease or end stage renal disease; E11.22 Type 2 diabetes mellitus with diabetic chronic kidney disease; N18.6 End stage renal disease; K74.60 Unspecified cirrhosis of liver; Z86.19 Personal history of other infectious and parasitic diseases; Z86.73 Personal history of transient ischemic attack (TIA), and cerebral infarction without residual deficits; Z87.440 Personal history of urinary (tract) infections; Z99.2 Dependence on renal dialysis
CPT/HCPCS: 99283; 36430; 80053; 83735; 83880; 84443; 84484; 85025; 86850; 86900; 86901; 86920; 93005; P9016

== ENCOUNTER 2024-02-28 12:27 | Inpatient (IN) | payer MEDICARE, OTHER, SELFPAY ==
[2024-02-28] VITALS (62 sets, daily range): BP systolic 44–127; BP diastolic 11–85; BMI 24.4
--- NOTE | 2024-02-28 07:26 | ED.GENMED ---
History of Present Illness
General
Chief Complaint: Blood Pressure Problem
Source: patient and ambulance crew
Exam Limitations: none
Time Seen by Provider: 02/28/24 07:26
Nursing documentation reviewed up to this point in time: agreed with
History of Present Illness
History of Present Illness:
Patient is a 63-year-old female from [facility] with past medical history of chronic kidney disease on dialysis Saturday, liver disease, CVA hypertension thrombocytopenia alcoholic cirrhosis seizures, mitral valve
endocarditis recently seen in the ER for anemia, February 24 and given 1 unit of packed red blood cells sent for low BP. Patient is on midodrine for blood pressure reports they usually give her midodrine when her blood pressure systolically gets
below 130. It was low today they sent her to dialysis dialysis admitted and sent patient to the ER.
Patient presents awake alert tells me she does not feel well. She is able to give history. She denies any chest pain shortness of breath fever chills
Past History
Past History
ED Past Medical History: CVA, GERD, IDDM, Renal failure, Seizures and Other (End-stage renal disease with dialysis MWF, disequilibrium syndrome, cirrhosis, hepatitis C, UTI)
Social History
Tobacco: Non-smoker
Alcohol: None
Drug: None
Personal: Single
Living: fdc
Employment: Not employed
Family History
Family History: Unable to obtain
Review of Systems
Review of Systems
Allergies reviewed?: Yes
All Other Systems: ROS reviewed and negative except as documented in HPI and ROS
Constitutional: Reports fatigue; Denies fever
EENT: Reports no symptoms
Respiratory: Reports no symptoms; Denies trouble breathing
Cardiac: Reports no symptoms; Denies chest pain, palpitations or syncope
ABD/GI: Reports no symptoms
: Reports no symptoms
Musculoskeletal: Reports no symptoms
Skin: Reports no symptoms
Neurological: Reports no symptoms
Psychiatric: Reports no symptoms
Phy Exam
General Physical Exam
General Presentation: no apparent distress
General age: appears stated age
General Skin: warm and dry
General Habitus: normal
General Mental: alert
General Hydration: dry mucous membranes
Cardiovascular Exam
Cardiovascular Exam: regular rate/rhythm, no murmur and normal peripheral pulses
Pulmonary Exam
Pulmonary Exam: lungs clear and no respiratory distress
Neurological Exam
Neurological Exam: alert and oriented x3
Musculoskeletal Exam
Musculoskeletal Exam: full ROM
Skin Exam
Skin Exam: normal color and warm/dry
Psychiatric Exam
Psychiatric Exam: normal mood/affect
Course
Orders/Labs/Results
Orders:
Orders
02/28/24 07:32
Electrocardiogram (*1) Urgent
Reason for Study: Fatigue / Weakness
EKG- Treatment ONCE
02/28/24 07:36
0.9% Sodium Chloride 250 ml [Nss] 250 ml IV BOLUS
02/28/24 07:37
Cardiac Monitoring- Treatment ONCE
IV Insert/Care/Rem.- Treatment PRN
02/28/24 07:41
Complete Blood Count/With Diff Urgent
Comprehensive Metabolic Panel Urgent
Hepatitis B Surface Antibody Urgent
Comment: ADD ON
Hepatitis B Surface Antigen Urgent
Comment: ADD ON
02/28/24 10:37
Add On- LAB Urgent
Comments:: Add to today's labs
Tests Added?: HBSAG, HBSAB
02/28/24 11:04
NORepinephrine 4 MG/250 ML [Levophed] 4 mg in 250 ml .ROUTE .STK-MED
02/28/24 11:11
0.9% Sodium Chloride 500 ml [Nss] 500 ml IV BOLUS
02/28/24 11:45
NORepinephrine 4 MG/250 ML [Levophed] 4 mg in 250 ml IV PER PROTOCOL
Currently infusing. Continue current dose and titrate:: Yes
Titrate to keep:: MAP > 65 mmHg
Titrate by mcg/min:: 1-2 mcg/min
Frequency of titrations (minutes):: 5
Maximum dose in ICU in mcg/min:: 30
Maximum dose in IMU in mcg/min:: 8
Maximum dose in IVU in mcg/min:: 4
Begin to taper infusion when:: Remained at goal for 4hrs
Taper by mcg/min:: 1-2 mcg/min
Frequency of taper (minutes) if patient maintains goal:: 30
Taper to off?: Yes
If infusion off & no longer maintaining goal:: Contact Provider
02/28/24 11:46
Portable Chest Xray [CR Chest Portable - 1 View] Urgent
Comment:
Reason For Exam: hypotension
Reason Study Needs to be Portable: Patient Unstable
02/28/24 11:51
Admit/Transfer Patient As Directed
Co-Sign Provider:
Level of Care: Inpatient admission
Assign to:: IMU- Intermediate Care
Physician / Group: Hospitalist
Diagnosis: Hypotension
Reason for Hospitalization: Hypotension
Expected length of stay greater than two midnights?: Yes
ELOS- Estimated Length of Stay in days: 3
I certify the patient meets the requirements for IP care: Yes
PRN Pain Medication Management As Directed
May give lesser potent ordered pain med per pt: Yes
preference::
Protocol:: Medication orders for pain may be administered in a
manner that supports deferring to patient preference
when the pt is:
- Requesting an ordered lesser potent pain medication.
Least to most potent pain medications are defined
as: acetaminophen < NSAID < tramadol < opioids
(morphine, oxycodone, hydromorphone).
- Requesting a lesser dose of the same medication IF
ORDERED.
- Requesting a less intrusive route of administration
if both routes are prescribed by the provider (PO <
IV).
02/28/24 11:53
Levetiracetam [Keppra] 250 mg PO NOW STA
Midodrine [ProAmatine] 5 mg PO NOW STA
02/28/24 12:12
Chest/Abd/Pelvis wo Contrast CT [CT Chest/abd/pel Wo Iv Cont] Urgent
Comment: anemia. R/O Bleeding. Rib fracture
Reason For Exam: hypotension, echymosis left side of chest and abdo
02/28/24 12:13
Troponin I Urgent
02/28/24 12:25
Speech Therapy Eval & Treat Routine
02/28/24 12:37
Blood Culture Q30M
BG Source: Blood/Venous
Specimen Description:
Blood Culture Q30M
BG Source: Blood/Venous
Specimen Description:
02/28/24 14:00
CefTRIAXone [Rocephin] 1,000 mg IV Q24H
MetroNIDAZOLE 500 MG/100 ML [Flagyl 500 mg] 100 ml IV Q8H
02/28/24 14:41
Acetaminophen [Tylenol] 650 mg PO Q6HPRN PRN
Bisacodyl [Dulcolax] 10 mg RECTAL DAILYPRN PRN
Midodrine [ProAmatine] 5 mg PO Q8HPRN PRN
02/28/24 14:41
Fentanyl Patch Confirmation BID@[id number]
Sequential Compression Device [Pneumatic Compression Sleeves] As Directed
Type: Knee high
DX Deep Vein Thrombosis Video Routine
02/28/24 15:00
FentaNYL 12 MCG/HR PATCH [Duragesic 12 Mcg/Hr Patch] 1 patch TRANSDERM Q72H
02/28/24 18:00
Lactulose [Duphalac/Chronulac] 20 grams PO QID
02/28/24 20:00
Famotidine [Pepcid] 10 mg PO Q48H
Levetiracetam [Keppra] 250 mg PO BID
02/28/24 22:00
Latanoprost [Xalatan Ophthalmic Solution] See Dose Instructions BOTH EYES HS
Mirtazapine [Remeron] 7.5 mg PO HS
02/29/24 08:00
Timolol Maleate 0.5% [Timoptic 0.5% Ophthalmic Solution] See Dose Instructions BOTH EYES DAILY
03/02/24 08:00
Midodrine [ProAmatine] 5 mg PO MoWeFr@0800
03/02/24 15:00
REMOVE fentaNYL PATCH [Remove Duragesic Patch] See Dose Instructions REMOVE Q72H
Abnormal Lab Results
02/28/24
07:41
WBC 12.3 H 10^3/uL
(4.8-10.8)
RBC 2.83 L 10^6/uL
(4.20-5.40)
Hgb 8.0 L g/dL
(12.0-16.0)
Hct 23.8 L %
(37.0-47.0)
RDW 17.9 H %
(11.5-14.5)
Plt Count 30 L D 10^3/uL
(130-400)
MPV 11.3 H fL
(7.4-10.4)
Abs Immat Gran (auto) 0.3 H 10^3/uL
(0-0.05)
Absolute Neuts (auto) 10.7 H 10^3/uL
(1.4-6.5)
Absolute Lymphs (auto) 0.7 L 10^3/uL
(1.2-3.4)
Immature Gran % 2.4 H %
(0-0.5)
Neutrophils % 86.4 H %
(42.2-75.2)
Lymphocytes % 5.7 L %
(20.5-51.1)
Sodium 133 L mmol/L
(135-145)
Potassium 3.0 L mmol/L
(3.5-5.1)
Carbon Dioxide 21 L mmol/L
(22-30)
Creatinine 2.6 H mg/dL
(0.6-1.0)
Glucose 159 H mg/dl
(70-99)
Calcium 7.3 L mg/dl
(8.4-10.2)
Total Bilirubin 2.0 H mg/dl
(0.2-1.3)
AST 76 H U/L
(14-36)
ALT 39 H U/L
(0-35)
Alkaline Phosphatase 250 H U/L
(38-126)
Total Protein 4.7 L g/dl
(6.3-8.2)
Albumin 1.5 L g/dl
(3.5-5.0)
02/28/24 07:41
02/28/24 07:41
Vital Signs
Initial and Last Documented VS:
Initial Vital Signs
Temp Pulse Resp BP Pulse Ox
97.9 F 78 16 88/55 93
02/28/24 07:23 02/28/24 07:23 02/28/24 07:23 02/28/24 07:23 02/28/24 07:23
Last Documented Vital Signs
Temp Pulse Resp BP Pulse Ox
97.9 F 96 40 69/44 95
02/28/24 07:23 02/28/24 14:10 02/28/24 14:10 02/28/24 14:10 02/28/24 14:10
Bender Machine Operator consulted with Physician
Bender Machine Operator consulted with physician?: Yes
Name of Physician Consulted: Piter
MDM/Problems Addressed
MDM/Problems Addressed:
Patient is a 63-year-old female with significant medical history including end-stage renal disease on dialysis liver disease presents for fdc for hypotension. Patient has a history of hypotension and was sent by dialysis center. Midodrine
was given dialysis was not started. Patient presented awake alert sleepy but answering questions not responsive oriented and reports she does not feel well. She denies any fevers and is afebrile her white count is minimally elevated 12.3. Her
hemoglobin is 8.0 which is baseline. She patient was here February 24 for low hemoglobin and transfused 1 unit at that time. Patient's potassium was minimally low at 3.0, her calcium is low at 7.3 is persistently low in the past.
Patient denies any shortness of breath chest pain she was given a 250 bolus on arrival patient did arrive with blood pressure in the 80s.
Patient was monitored here however though she maintained her blood pressure in the 80s for quite a while blood pressure did drop to the 70s. Case reviewed with admitting hospitalist as well as nephrology. Patient was ordered second 500 bolus of
fluids however even after 300 cc no change in blood pressure blood pressure remains in the 70s though she is mentating. Will start Levophed reviewed with nephrology.
Chronic conditions affecting care:
ESRD on HDl liver disease
*Pulse Oximetry
Patient hypoxic: no
*Critical Care Note
Total Time (30-74mins, 75-104mins- exclusive of procedures): Not Applicable
ED Attending Note
-
Portions of this chart may have been created with voice recognition software.� Occasional wrong word or��sound alike� substitutions may have occurred due to the inherent limitations of voice recognition software.
Discharge Plan
Departure
Patient Disposition: Admit
Date of Disposition: 02/28/24
Time of Disposition: 09:22
Admit to: Med/Surg
Admit to doctor: hospititalist
Presentation/result/management discussed w/ accepting MD/DO: Hospitalist
Patient with high blood pressure during this ER visit?: No
Condition: Fair
Covid-19: Not Applicable
Discharge Problem:
Acute hypotension
Interventions
Interventions:
*Risk Screen - Suicide Last Done: 02/28/24 07:32
*General Assessment Last Done: 02/28/24 07:32
*Neglect/Abuse Screening Last Done: 02/28/24 07:32
*ED COVID-19 Vaccine History Last Done: 02/28/24 07:32
*Nursing Disposition Last Done: 02/28/24 14:50
ED- Cardiac Assessment Last Done: 02/28/24 07:34
ED- Neurological Assessment Last Done: 02/28/24 07:34
ED- Pulmonary Assessment Last Done: 02/28/24 07:34
Discharge Date and Time
Discharge Date/Time: 02/28/24 14:52
[2024-02-28] MEDS: NSS 250 IV (07:52)
[2024-02-28 08:10] LABS: ALT (SGPT) 39 U/L (0-35); AST (SGOT) 76 U/L (14-36); Albumin 1.5 g/dl (3.5-5.0); Alkaline Phosphatase 250 U/L (38-126); Blood Urea Nitrogen 16 mg/dl (7-17); Calcium 7.3 mg/dl (8.4-10.2); Carbon Dioxide 21 mmol/L (22-30); Chloride 106 mmol/L (98-107); Glucose 159 mg/dl (70-99); Sodium 133 mmol/L (135-145); Total Protein 4.7 g/dl (6.3-8.2); eGFR 19.99
[2024-02-28 08:20] LABS: % Basophils 0.3 % (0-2); % Eosinophils 1.9 % (0-6); % Immature Granulocytes 2.4 % (0-0.5); % Lymphocytes 5.7 % (20.5-51.1); % Monocytes 3.3 % (1.7-9.3); % Neutrophils 86.4 % (42.2-75.2); Absolute Eosinophils 0.2 10^3/uL (0-0.7); Absolute Immature Granulocytes 0.3 10^3/uL (0-0.05); Absolute Lymphocytes 0.7 10^3/uL (1.2-3.4); Absolute Monocytes 0.4 10^3/uL (0.1-0.6); Absolute Neutrophils 10.7 10^3/uL (1.4-6.5); Hematocrit 23.8 % (37.0-47.0); Mean Corp Hgb Conc. 33.6 g/dL (33.0-37.0); Mean Corpuscular Hgb 28.3 pg (27.0-31.0); Mean Corpuscular Volume 84.1 fL (81.0-99.0); Nucleated Red Blood Cells % 0 %; Red Blood Cell Count 2.83 10^6/uL (4.20-5.40); Red Cell Dist. Width 17.9 % (11.5-14.5); White Blood Cell Count 12.3 10^3/uL (4.8-10.8)
[2024-02-28 08:44] LABS: Mean Platelet Volume 11.3 fL (7.4-10.4); Platelet Count 30 10^3/uL (130-400)
--- NOTE | 2024-02-28 09:24 | W.CON.NEPH ---
Consultation
-
Date/Time Consultation Requested: February 28, 2024 at 9 AM
Date/Time Consultation Performed: February 28, 2024 at 9:30 AM
Requesting Provider: Dr. Dillon
Performing Provider: Dr. Jose Dsouza
Reason for Consultation: End-stage renal disease
Medical History
-
Chief Complaint: Hypotension
History of Present Illness:
63-year-old female from [facility] with past medical history of chronic kidney disease on dialysis Saturday, liver disease, CVA hypertension thrombocytopenia alcoholic cirrhosis seizures, mitral valve endocarditis
recently seen in the ER for anemia, February 24 and given 1 unit of packed red blood cells sent for low BP. Patient is on midodrine for blood pressure . She presents today to the emergency room with hypotension from dialysis that she did not get
dialysis today her last dialysis was Saturday.
Renal consultation for end-stage renal disease management.
Blood pressure systolic was as low as 75. She is getting a 250 bolus of normal saline we did have an improvement to systolic of 90.
She was admitted in December 2023 with bacteremia was on IV meropenem for E. coli. Completed antibiotics February 02 for a diagnosed of endocarditis
Past Medical History
1. History of ESRD for several years.
2. correction resident at [facility].
3. 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
4. History of left upper extremity hybrid AV graft, status post
removal.
5. Right chest wall catheter.
6. History of COVID.
7. AFib.
8. Seizure disorder.
9. Hyperparathyroidism.
10. Chronic thrombocytopenia.
11. Alcoholic cirrhosis 2003.
12. Lymphocytic colitis April 2021.
13. GI bleeding April 2021.
14. Anemia, CKD and ESLD.
15. Depression.
16. History of MSSA mitral valve endocarditis.
17. GERD.
18. History of left hip fracture with repair and left humeral
fracture.
19. Hysterectomy.
20. Glaucoma.
Social History
Tobacco: Non-Smoker
Alcohol: None
Family History
Family History: Not Pertinent
Allergies / Home Medications
Allergy/AdvReac Type Severity Reaction Status Date / Time
No Known Allergies Allergy Verified 02/25/24 14:51
�Medication �Instructions �Recorded �Confirmed �Type
levetiracetam 250 mg tablet 250 mg PO BID Seizures 02/01/20 02/25/24 History
bisacodyl 10 mg rectal suppository 10 mg AK DAILYPRN PRN CONSTIPATION 04/26/20 02/25/24 History
(OneLAX Bisacodyl)
lactulose 20 gram/30 mL oral 30 ml PO QID Liver disease 09/25/21 02/25/24 History
solution
ondansetron HCl 4 mg tablet 4 mg PO Q6HPRN PRN NAUSEA 09/25/21 02/25/24 History
latanoprost 0.005 % eye drops 1 drp BOTH EYES HS Eye condition 05/17/22 02/25/24 History
midodrine 5 mg tablet 5 mg PO MOWEFR before dialysis 05/17/22 02/25/24 History
sevelamer carbonate 800 mg tablet 800 mg PO AC Kidney Disease 05/17/22 02/25/24 History
(Renvela)
timolol maleate 0.5 % eye drops 1 drp BOTH EYES DAILY Eye condition 05/17/22 02/25/24 History
midodrine 5 mg tablet 5 mg PO Q8HPRN PRN SBP < 90 mmHg 05/28/22 02/25/24 Rx
#0 tabs
famotidine 20 mg tablet (Pepcid) 10 mg PO Q48H Gastrointestinal 08/23/22 02/25/24 History
Issue
insulin aspart U-100 100 unit/mL 1 sliding scale dose SC AC Diabetes 08/23/22 02/25/24 History
(3 mL) subcutaneous pen (Novolog
FlexPen U-100 Insulin aspart)
insulin glargine 100 unit/mL 5 unit SC HS Diabetes 08/23/22 02/25/24 History
subcutaneous solution (Lantus
U-100 Insulin)
trolamine salicylate 10 % topical 1 applic topical DAILY left upper 08/23/22 02/25/24 History
cream (Aspercreme) back leg
acetaminophen 325 mg tablet 650 mg PO Q6HPRN PRN mild pain 12/24/23 02/25/24 History
(Tylenol)
mirtazapine 7.5 mg tablet 7.5 mg PO HS Mental Health/Anxiety 12/24/23 02/25/24 History
fentanyl 12 mcg/hr transdermal 1 patch transdermal Q72H severe 01/03/24 02/25/24 Rx
patch Pain #1 ea
vitamin B complex and vitamin C 1 cap PO DAILY 02/25/24 02/25/24 History
no.20-folic acid 1 mg capsule
Review of Systems
-
Diarrhea no chest pain or shortness of breath
All other systems: Negative unless noted
Physical Exam
Vital Signs
Vital Signs
Temp Pulse Resp BP Pulse Ox
97.9 F 78 20 98/54 98
02/28/24 07:23 02/28/24 08:02 02/28/24 08:02 02/28/24 08:02 02/28/24 08:07
Lab Results
WBC 12.3 10^3/uL (4.8-10.8) H 02/28/24 07:41
RBC 2.83 10^6/uL (4.20-5.40) L 02/28/24 07:41
Hgb 8.0 g/dL (12.0-16.0) L 02/28/24 07:41
Hct 23.8 % (37.0-47.0) L 02/28/24 07:41
Plt Count 30 10^3/uL (130-400) L D 02/28/24 07:41
Sodium 133 mmol/L (135-145) L 02/28/24 07:41
Potassium 3.0 mmol/L (3.5-5.1) L 02/28/24 07:41
Chloride 106 mmol/L (98-107) 02/28/24 07:41
Carbon Dioxide 21 mmol/L (22-30) L 02/28/24 07:41
BUN 16 mg/dl (7-17) 02/28/24 07:41
Creatinine 2.6 mg/dL (0.6-1.0) H 02/28/24 07:41
eGFR 19.99 02/28/24 07:41
Glucose 159 mg/dl (70-99) H 02/28/24 07:41
Calcium 7.3 mg/dl (8.4-10.2) L 02/28/24 07:41
Albumin 1.5 g/dl (3.5-5.0) L 02/28/24 07:41
Physical Exam
Patient is awake alert oriented and in no distress. Mood and affect were pleasant, insight and judgment were good. Pupils are equal round and reactive to light, extraocular movements are intact, sclera were anicteric. Hearing was normal, ears and
nose are intact. Oropharynx was clear. Neck was supple with trachea midline and no thyromegaly. Heart was regular rate and rhythm without rubs. Lower extremities with 1+ edema. Lungs were clear to auscultation bilaterally and with normal
excursion. Abdomen was soft, nontender, with normal active bowel sounds, and no hepatosplenomegaly. Skin was excoriation on the left lower leg with venous stasis changes. Right chest wall CVC clean dry and intact.
Data Reviewed
-
Labs: Labs Reviewed by me
Assessment/Plan
-
63-year-old female from [facility] with past medical history of chronic kidney disease on dialysis Saturday, liver disease, CVA hypertension thrombocytopenia alcoholic cirrhosis seizures, mitral valve endocarditis
recently seen in the ER for anemia, February 24 and given 1 unit of packed red blood cells sent for low BP. Patient is on midodrine for blood pressure . She presents today to the emergency room with hypotension from dialysis that she did not get
dialysis today her last dialysis was Saturday.
Renal consultation for end-stage renal disease management.
Blood pressure systolic was as low as 75. She is getting a 250 bolus of normal saline we did have an improvement to systolic of 90.
She was admitted in December 2023 with bacteremia was on IV meropenem for E. coli. Completed antibiotics February 02 for a diagnosed of endocarditis
Assessment
ESRD Saturday
Hypotension
ESLD on chronic midodrine with dialysis
Chronic thrombocytopenia pancytopenia
Paroxysmal atrial fibrillation
Diabetes mellitus type 2
Seizure disorder
Right CVC HD catheter/resection of left upper extremity hybrid AV graft
History of endocarditis status post meropenem completed 02/03/24
History of cirrhosis
Plan:
Midodrine with dialysis
No heparin on dialysis
Hypotensive on admission improved with minimal IV fluids
Will hold dialysis today. There is no acute need from a electrolyte or volume standpoint. She is having diarrhea significant yesterday.
Check blood and stool cultures including C. difficile with recent antibiotics= will defer to primary team.
Retacrit with dialysis.
[2024-02-28] MEDS: NSS 500 IV (11:21)
[2024-02-28] MEDS: LEVOPHED 250 IV ×2 (11:44→16:00)
--- NOTE | 2024-02-28 11:54 | HPS.HSE ---
Family Physician
-
Family Physician: Dakota Becerril
Chief Complaint
-
Hypotension
History of Present Illness
63-year-old female from [place] because of hypotension. Patient not able to give me any additional history. She has ecchymosis noted when I examined her and she is not able to tell me how that happened. She denies any pain anywhere. No
diarrhea. No shortness of breath or chest pain. She denies any fever. Patient is a very poor historian.
Medical History
Past Medical History
Past Medical History: Reports Other
Additional Past Medical History:
Dysphagia, seizures, history of stroke, ESRD, history of endocarditis, chronic hypotension, history of hepatitis C, cirrhosis, dysphagia, GERD, history of GI bleed, history of hepatic encephalopathy, diabetes, glaucoma, chronic anemia,
thrombocytopenia, depression, chronic pain
Past Surgical History: Reports Other
Additional Past Surgical History:
Left-sided AV fistula, surgery on the right leg-details unclear
Hysterectomy, extraction of infected left upper extremity graft in 2022
Social History
Tobacco: Former Smoker
Alcohol: None
Drug: None
Living: Long-Term
Family History
Family History: Not pertinent
Allergies / Home Medications
Allergies reflects when Allergies were last updated in [employer].
Home Medications with original date entered in [employer]
Allergy/Medication List:
Allergies
Allergy/AdvReac Type Severity Reaction Status Date / Time
No Known Allergies Allergy Verified 02/25/24 14:51
Home Medications
levetiracetam 250 mg tablet 250 mg PO BID Seizures 02/01/20
bisacodyl 10 mg rectal suppository (OneLAX Bisacodyl) 10 mg [place] DAILYPRN PRN CONSTIPATION 04/26/20
lactulose 20 gram/30 mL oral solution 30 ml PO QID Liver disease 09/25/21
ondansetron HCl 4 mg tablet 4 mg PO Q6HPRN PRN NAUSEA 09/25/21
latanoprost 0.005 % eye drops 1 drp BOTH EYES HS Eye condition 05/17/22
midodrine 5 mg tablet 5 mg PO MOWEFR before dialysis 05/17/22
timolol maleate 0.5 % eye drops 1 drp BOTH EYES DAILY Eye condition 05/17/22
midodrine 5 mg tablet 5 mg PO Q8HPRN PRN SBP < 90 mmHg #0 tabs 05/28/22
famotidine 20 mg tablet (Pepcid) 10 mg PO Q48H Gastrointestinal Issue 08/23/22
insulin aspart U-100 100 unit/mL (3 mL) subcutaneous pen (Novolog FlexPen U-100 Insulin aspart) 1 sliding scale dose SC AC Diabetes 08/23/22
insulin glargine 100 unit/mL subcutaneous solution (Lantus U-100 Insulin) 5 unit SC HS Diabetes 08/23/22
trolamine salicylate 10 % topical cream (Aspercreme) 1 applic topical DAILY left upper back leg 08/23/22
acetaminophen 325 mg tablet (Tylenol) 650 mg PO Q6HPRN PRN mild pain 12/24/23
mirtazapine 7.5 mg tablet 7.5 mg PO HS Mental Health/Anxiety 12/24/23
fentanyl 12 mcg/hr transdermal patch 1 patch transdermal Q72H severe Pain #1 ea 01/03/24
vitamin B complex and vitamin C no.20-folic acid 1 mg capsule 1 cap PO DAILY 02/25/24
Review of Systems
-
A 12 point ROS was completed and negative except as noted: Yes
Respiratory: Denies Trouble Breathing
Cardiac: Denies Chest Pain
Abdomen/GI: Denies Diarrhea
Physical Exam
Vital Signs
Vital Signs
Temp Pulse Resp BP Pulse Ox
97.9 F 79 30 68/43 100
02/28/24 07:23 02/28/24 11:30 02/28/24 11:30 02/28/24 11:30 02/28/24 10:39
Physical Exam
General: Comfortable and Conversant
Respiratory: Clear
Cardiac: S1/S2, Regular Rhythm and Murmur (Short systolic murmur at apex)
GI: Soft, Non Tender and Normal Bowel Sounds
Skin: Other ( ecchymosis on the left chest wall tracking down to the flank area on the )
Neuro: Awake, Alert, Oriented, Cranial Nerves Intact and Other ( generalized weakness)
Laboratory Results
-
02/28/24 07:41
02/28/24 07:41
Laboratory Results
Total Bilirubin 2.0 mg/dl (0.2-1.3) H 02/28/24 07:41
AST 76 U/L (14-36) H 02/28/24 07:41
ALT 39 U/L (0-35) H 02/28/24 07:41
Alkaline Phosphatase 250 U/L (38-126) H 02/28/24 07:41
Data Reviewed
-
Diagnostic Radiology: Image Personally Visualized and interpreted (Chest x-ray reviewed by me-pleural effusion on the right side with atelectasis about that)
Medical Tests (Nuc Med, Echo, EKG etc): Image Personally Visualized and interpreted (EKG-sinus rhythm with sinus arrhythmia QTc 547) and Report Reviewed by me (Echo 01/03/2024-EF 60 to 65%, moderate to severe MR, mobile echodensity posterior mitral
valve, moderate MS MR has improved. Vegetation smaller in size)
Impression/Plan
-
IMPRESSION/PLAN:
# Hypotension shock-NOS
Unclear reason. Patient does have chronic hypotension on midodrine scheduled and as needed
Dose ordered now.
Check blood cultures to rule out sepsis as a recent
Patient got 250 mL of fluid bolus
Check CT scan of the chest and abdomen with ecchymosis noted
EKG noted
Check troponin
Will start meropenem given history of ESBL sepsis
If no source then will stop
# TME secondary to hypotension. Also check ammonia level with history of hepatic encephalopathy
# Right-sided pleural vkrktfph-oewgnigvb-ucysyo evaluation. CT of the chest
# ESRD
Right chest wall catheter.
Nephrology consulted for dialysis
Continue Nephrocaps
# Liver disease with Alcoholic cirrhosis
Continue lactulose with history of hepatic encephalopathy
# Chronic pain on fentanyl
# Thrombocytopenia
# Hyponatremia-will be corrected during dialysis
# Hypokalemia
# Anemia-NOS check CT scan. Patient has chronic anemia from ESRD
# Chronic hypotension on scheduled and as needed midodrine
# Diabetes-on Lantus insulin 5 units and sliding scale
# Seizures-continue Keppra
# Depression-continue Remeron
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
# H/O ESBL E. coli sepsis
# History of CVA
# Prolonged QT interval-avoid any meds which would prolong it
# Chronic pain syndrome/chronic opiate dependence -on chronic fentanyl patch.
# GERD-continue Pepcid
# Ambulatory dysfunction-Not walked for few years-PT OT consultation when blood pressure stable
# Glaucoma-continue timolol and latanoprost eyedrop
# Severe hypoalbuminemia-albumin 1.5
# Ex-smoker
# DVT prophylaxis-SCDs
# CODE STATUS-full code
Discussed with
Discussed with x-ray
Discussed with patient's sister who is her power of admitted attorneys. Reviewed CODE STATUS. Sisters stated that if it was up to her she would make her a DNR however patient always wants to be full code. Sister wants to leave her as a full code for now.
Total time spent over 75 minutes
[2024-02-28] MEDS: KEPPRA 250 MG PO ×2 (12:05→20:00)
[2024-02-28] MEDS: ProAmatine 5 MG PO ×2 (12:05→16:24)
[2024-02-28 12:52] LABS: Troponin I 0.017 ng/ml
[2024-02-28 13:25] LABS: Ammonia < 9 umol/L (9-30)
--- NOTE | 2024-02-28 13:54 | W.PN.UPDATE ---
Update Note
Progress Note Update
Requiring higher dose of pressors, change to ICU. Order Picc
[2024-02-28] MEDS: STERILE WATER FOR INJECTION 10 ML IV (14:16)
[2024-02-28] MEDS: MERREM 500 MG IV (14:16)
[2024-02-28 14:25] LABS: Hepatitis B Surface Antigen Negative (Negative)
--- NOTE | 2024-02-28 14:31 | PTOTSP ---
Speech Therapy Evaluation:
Pt exhibits clinical signs of oropharyngeal dysphagia, likely acute in nature 2/2 lethargy/mentation. Pt last evaluated by acute care TEACHER'S ASSISTANT 01/12/2021 with oropharyngeal swallow that appeared functional at bedside. On this date, pt failed 3oz swallow
screen with coughing noted prior to finishing 3oz. No s/sx of aspiration with small single sips of liquids. Although no overt s/sx of aspiration with puree, pt required 5-6 swallows per bolus over consecutive trials. Pt remains at an increased risk
of aspiration d/t current mentation. Suspect improvement in swallow function as medical status improves.
Recommend:
1. Thin liquid diet via SMALL, SINGLE sips ONLY-low threshold for NPO
2. Direct SPV and assistance with intake
3. Only feed pt when awake/alert.
4. D/c oral diet if further decline in mentation or concerned for aspiration
5. Medications non-oral vs per RN discretion when medical status/mentation improves
6. TEACHER'S ASSISTANT to closely follow to determine candidacy for diet initiation and assess if instrumental assessment warranted
--- NOTE | 2024-02-28 14:38 | CON.INTV ---
Consultation
Consultation Request
Date/Time Consultation Requested: 02/28/2024-2 40 5 PM
Date/Time Consultation Performed: 02/28/2024-3 PM
Requesting Provider: Hospitalist
Performing Provider: Dr. Edwards
Reason for Consultation: Hypotension requiring pressors
Medical History
-
Chief Complaint: Hypotension/shock
History of Present Illness:
63-year-old female usp patient from [facility] with a history of diabetes, chronic anemia, chronic pain, CVA, seizures, dysphagia, end-stage renal disease, history endocarditis, chronic hypotension, hepatitis C, cirrhosis, GERD, and
history of hepatic encephalopathy presented with change in mental status and hypotension unresponsive to fluids requiring pressors-director of restaurants consulted for shock/critical care management 02/28/2024. Patient is lethargic and review of systems was
unobtainable. She was arousable, and complained of some mild shortness of breath and 'leg pain' but does back off.
Past Medical History
Past Medical History: None (Dysphagia. Seizure. History of CVA. ESRD. History endocarditis. Chronic hypotension. Hepatitis C. Cirrhosis. Hepatic encephalopathy. Dysphagia. GERD. GI bleed. Diabetes. Glaucoma. Thrombocytopenia. Chronic
pain. Depression.)
Past Surgical History: None (AV fistula. Right leg surgery. Hysterectomy. Extraction infected left upper extremity graft 2022.)
Social History
Tobacco: Former Smoker
Alcohol: None
Drug: None
Living: [facility]
Occupational Exposures: No known asbestos exposure
Environmental Exposures: No known tuberculosis exposure
Allergies / Home Medications
Allergies
Allergy/AdvReac Type Severity Reaction Status Date / Time
No Known Allergies Allergy Verified 02/25/24 14:51
Home Medications
�Medication �Instructions �Recorded �Confirmed �Last Taken �Type
levetiracetam 250 mg tablet 250 mg PO BID Seizures 02/01/20 02/28/24 04/24/21 08:00 History
bisacodyl 10 mg rectal suppository 10 mg [place] DAILYPRN PRN CONSTIPATION 04/26/20 02/28/24 Unknown History
(OneLAX Bisacodyl)
lactulose 20 gram/30 mL oral 30 ml PO QID Liver disease 09/25/21 02/28/24 Unknown History
solution
ondansetron HCl 4 mg tablet 4 mg PO Q6HPRN PRN NAUSEA 09/25/21 02/28/24 Unknown History
latanoprost 0.005 % eye drops 1 drp BOTH EYES HS Eye condition 05/17/22 02/28/24 Unknown History
midodrine 5 mg tablet 5 mg PO MOWEFR before dialysis 05/17/22 02/28/24 Unknown History
timolol maleate 0.5 % eye drops 1 drp BOTH EYES DAILY Eye condition 05/17/22 02/28/24 Unknown History
midodrine 5 mg tablet 5 mg PO Q8HPRN PRN SBP < 90 mmHg 05/28/22 02/28/24 Unknown Rx
#0 tabs
famotidine 20 mg tablet (Pepcid) 10 mg PO Q48H Gastrointestinal 08/23/22 02/28/24 Unknown History
Issue
insulin aspart U-100 100 unit/mL 1 sliding scale dose SC AC Diabetes 08/23/22 02/28/24 Unknown History
(3 mL) subcutaneous pen (Novolog
FlexPen U-100 Insulin aspart)
insulin glargine 100 unit/mL 5 unit SC HS Diabetes 08/23/22 02/28/24 Unknown History
subcutaneous solution (Lantus
U-100 Insulin)
trolamine salicylate 10 % topical 1 applic topical DAILY left upper 08/23/22 02/28/24 Unknown History
cream (Aspercreme) back leg
acetaminophen 325 mg tablet 650 mg PO Q6HPRN PRN mild pain 12/24/23 02/28/24 Unknown History
(Tylenol)
mirtazapine 7.5 mg tablet 7.5 mg PO HS Mental Health/Anxiety 12/24/23 02/28/24 Unknown History
fentanyl 12 mcg/hr transdermal 1 patch transdermal Q72H severe 01/03/24 02/28/24 Unknown Rx
patch Pain #1 ea
vitamin B complex and vitamin C 1 cap PO DAILY 02/25/24 02/28/24 Unknown History
no.20-folic acid 1 mg capsule
Review of Systems
Vitals / Labs / Diagnostic Testing
Vital Signs
Temp Pulse Resp BP Pulse Ox
97.9 F 96 40 69/44 95
02/28/24 07:23 02/28/24 14:10 02/28/24 14:10 02/28/24 14:10 02/28/24 14:10
Lab Data
02/28/24 07:41
02/28/24 07:41
Diagnostic Testing:
Assessment
-
63-year-old female usp patient from [facility] with a history of diabetes, chronic anemia, chronic pain, CVA, seizures, dysphagia, end-stage renal disease, history endocarditis, chronic hypotension, hepatitis C, cirrhosis, GERD, and
history of hepatic encephalopathy presented with change in mental status and hypotension unresponsive to fluids requiring pressors-director of restaurants consulted for shock/critical care management 02/28/2024.
Shock unresponsive to fluids requiring pressors-suspected septic shock
Toxic metabolic encephalopathy
Moderate right pleural effusion
Pneumonia-usp acquired
Leukocytosis
Llmyvo-wrbomzrfnm-zmoogifbeo 8.0
Thrombocytopenia-platelet 30
Mild hyponatremia
Hypokalemia
Hyperglycemia
Elevated LFTs
Hypoalbuminemia
Chest ecchymosis
Conditions present prior to admission:
Dysphagia.
Seizure.
History of CVA.
ESRD-on hemodialysis
Atrial fibrillation
Hyperparathyroidism
Chronic thrombocytopenia
History endocarditis.
Chronic hypotension.
Hepatitis C.
Alcohol cirrhosis diagnosed 2003
Hepatic encephalopathy.
Dysphagia.
GERD.
GI bleed-April 2021
Diabetes.
Glaucoma
Chronic pain.
Depression.
Glaucoma
AV fistula. Right leg surgery. Hysterectomy. Extraction infected left upper extremity graft 2022. Hip fracture and humeral fracture. Hysterectomy.
Plan
Admit patient to medical intensive care unit for persistent hypotension despite fluid resuscitation requiring pressors
Supplement oxygen as needed
High flow oxygen if needed
BiPAP if necessary
Intubate and mechanically ventilate if necessary
Aspiration precautions
Nebulizers if needed
If stabilized then thoracentesis may be indicated on the right side
Obtain cultures
Empiric antibiotics-meropenem initiated
Consider Infectious disease consultation
Monitor leukocytosis
Fluid resuscitation with 30 mL/kg crystalloid-preferably lactated ringer-(less MARIAJOSE) with subsequent boluses as needed-note patient has end-stage renal disease
Monitor lactate
Follow CVP if possible
Attempt noninvasive bedside tissue perfusion evaluation to see if fluid bolus responsive
Measure pulse pressure and stroke volume variation if patient on ventilator, passively breathing without arrhythmia and with temporary large tidal volume ventilation and if > 13% then likely fluid bolus responsive
If patient active then consider measuring bedside leg lift for 3 minutes and if cardiac output increases or if there is a rise of 2-4 on end-tidal CO2 then fluid bolus
If bedside ultrasound available then measure IVC diameter variation to evaluate for fluid bolus responsiveness
Begin pressors as needed for MAP goal of 65-Norepinephrine first, then Vasopressin and consider Angiotensin II if continues to be hypotensive
Consider methylene blue if available-specific inhibitor of induced nitric oxide synthase iNOS and its downstream enzyme soluble guanylate cyclase-noninferiority study shown to reduce time to vasopressor discontinuation, decreased ICU length of stay,
hospital stay but no change in mortality-published Critical Care 04/23/2022
If persistently hypotensive then consider checking random cortisol-hydrocortisone if random less than 3, if 3-15 then consider ACTH stimulation test
If persistently hyperthermic then correcting hyperthermia can decrease pressor requirements, increased chances of reversal of shock and decrease mortality
Follow hemoglobin and platelet count
Transfuse as needed
Monitor renal function
Nephrology evaluation
Hemodialysis 3 times weekly
Replace electrolytes
Monitor liver functions
Monitor chest wall ecchymosis-CT chest abdomen and pelvis summarized below
Monitor blood sugar
Insulin supplementation as needed
DVT prophylaxis
Early nutrition if possible
Early mobilization/bedside range of motion
Primary team spoke with sister who would prefer DNR, however, patient wants to be full code for now
Critical care statement: A total of 65 minutes of critical care time was provided for this patient today. This includes management of unstable vital signs, evaluation of the patient at bedside, reviewing the patient's pertinent medical records
including radiographs, pressor management, sepsis management, microbiology, laboratory evaluations, and discussion with primary team, consultants, pharmacy, nutrition, physical therapy, case management, charge nurse, critical care nursing, and
respiratory therapy.
Diagnostic data:
Chest x-ray 05/18/2021-NAD
Chest x-ray 12/24/2023-small right pleural effusion
Chest x-ray 02/28/2024-borderline CHF, small right pleural effusion
CT chest abdomen and pelvis 02/28/2024-moderate right and trace left pleural effusion, right lower lobe consolidation, cirrhosis and portal hypertension, L1 compression fracture, stable simple appearing probable sebaceous cyst within the left
anterior chest wall subcutaneous tissue measuring 4.5 x 3.6 cm
Data Reviewed
-
EKG: Report reviewed by me
Radiology: Image personally visualized and interpreted and Report reviewed by me
CT Scan: Image personally visualized and interpreted and Report reviewed by me
Medical Tests (Nuc Med, Echo etc): Report reviewed by me
Labs: Labs reviewed by me
Old Records: Reviewed
Critical Care Time (in minutes): 65
[2024-02-28 14:42] LABS: Hepatitis B Surface Antibody Negative
--- NOTE | 2024-02-28 14:51 | W.PN.SEPSIS ---
Sepsis
Vital Signs
Temp Pulse Resp BP Pulse Ox
97.9 F 96 40 69/44 95
02/28/24 07:23 02/28/24 14:10 02/28/24 14:10 02/28/24 14:10 02/28/24 14:10
Physical Exam
Physical Exam:
A focused exam was performed after fluid resuscitation.
Capillary Refill
Right Upper Extremity:
Pennie Time: Less than 3 sec
Pulse Evaluation
Right Radial:
Pulse Evaluation: Present
[2024-02-28] MEDS: PITRESSIN 100 IV (16:00)
[2024-02-28] MEDS: TYLENOL 650 MG PO (16:24)
[2024-02-28] MEDS: KCL 160 MEQ IV (16:24)
[2024-02-28 17:32] LABS: Glucose - Point of Care 128 mg/dl (70-99)
[2024-02-28] MEDS: LEVOPHED 258 MG IV (17:48)
[2024-02-28 19:11] LABS: INR 2.97; PT 30.8 Sec (11.4-14.6)
[2024-02-28 19:12] LABS: APTT 73.7 Sec (23.4-35.0)
[2024-02-28 19:20] LABS: Hematocrit 23.8 % (37.0-47.0); Hemoglobin 7.9 g/dL (12.0-16.0)
[2024-02-28 19:30] LABS: Lactic Acid 5.1 mmol/L (0.7-2.0)
[2024-02-28 19:31] LABS: Blood Urea Nitrogen 17 mg/dl (7-17); Carbon Dioxide 12 mmol/L (22-30); Chloride 107 mmol/L (98-107); Estimated Creatinine Clearance 17 ml/min; Glucose 118 mg/dl (70-99); Phosphorus 0.9 mg/dl (2.5-4.5); Potassium 3.2 mmol/L (3.5-5.1); Sodium 129 mmol/L (135-145); eGFR 18.29
--- NOTE | 2024-02-28 19:32 | PTCARENOTE ---
Pt admitted to ICU bed 3369 from ED. BP labile. Received on Levophed at 22mcg/min. Maxed on levo and started Vasopressin. New order for Epinephrine gtt which is not started yet.
Pt very lethargic. Sinus rhythm with PACs and PVCs, occasionally bigeminy. +1 general pitting edema. SpO2 96% on room air on arrival. Respiratory rate 30 and labored therefore pt placed on 4L NC. RR 21-23 at this time. Incontinent of loose
brown BM. Anuric. See worklist for wounds. PICC placed by IV team at bedside. ICU EXCAVATING MACHINE OPERATOR to place a-line.
[2024-02-28] MEDS: PEPCID 10 MG PO (20:00)
--- NOTE | 2024-02-28 20:00 | PTCARENOTE ---
Pt lethargic, BP 60s/40s, recycle 88/62. Epi added to MAR if needed. Levo max'd, vaso on. HONE OPERATOR Atilio aware. Pt arousable, answers simple questions then dozes back off. Lower contracted, moves uppers 5/5. Afebrile. NSR on monitor. MAP goal 65. 2-4
L nasal cannula. 98%, RR24. Order appreciated for ABG. RT at bedside, unable to attain. Pt coughing after 2000 PO meds. MARKELL Trimble made aware. Holding 2200 PO meds. FMS inserted for multiple incontinent diarrhea episodes. Anuric, due for HD
tomorrow. Will monitor.
[2024-02-28] MEDS: POTASSIUM PHOSPHATE 254.5455 MEQ IV (20:29)
[2024-02-28] MEDS: CALCIUM GLUCONATE 100 IV (20:29)
[2024-02-28] MEDS: ADRENALIN 250 IV (21:09)
[2024-02-28] MEDS: XYLOCAINE 2% MDV 20 ML INJ (22:44)
--- NOTE | 2024-02-28 23:59 | PTCARENOTE ---
Monitor glitch, pt name temporarily erased from [id number]. Unable to pull VS over from [facility]ardo Monitor from [id number]. Problem rectified. Now working. VS entered manually for time frame. In this time, BP dropped and Epi gtt was added. See flow sheet for
details. Will monitor.
[2024-02-29 00:10] LABS: Glucose - Point of Care 90 mg/dl (70-99)
[2024-02-29 00:12] LABS: O2 Saturation % 96.8 % (94-98); PCO2 20 mmHg (32-35); PO2 79 mmHg (83-108)
[2024-02-29 00:17] VITALS: BP 63/27
[2024-02-29 00:17] LABS: O2 Therapy 4L
[2024-02-29 00:18] LABS: HCO3 6.5 mmol/L (21-28); pH 7.12 (7.35-7.45)
[2024-02-29 00:27] VITALS: BP 57/32
[2024-02-29 00:30] VITALS: BP 56/21
[2024-02-29] MEDS: SODIUM BICARBONATE 50 MEQ IV ×3 (00:35→10:16)
--- NOTE | 2024-02-29 00:41 | W.PN.ANS.LIN ---
Anesthesia IV & A-Line Note
- IV/Arterial Line
Right Wrist Arrow 20 (04/14)
Diagnosis: hypotension
IV Line Comments: Uneventful Procedure
Allens test completed pre-procedure: Yes
A-Line Comments: Sterile technique as per standard protocol, Uneventful procedure, Seldinger technique used, Ultrasound guided insertion, Biopatch applied
Funtioning A-line in situ: No
A-line Insertion Start Time: 00:15
A-line Insertion Stop Time: 00:35
--- NOTE | 2024-02-29 00:52 | PTCARENOTE ---
Arterial Line placed by anesthesia. ABG sent and resulted. 2 amps bicarb given as ordered. Weaning pressors as tolerated. Pt resting comfortably. Will monitor.
[2024-02-29] MEDS: DILAUDID 0.25 MG IV (00:57)
[2024-02-29] MEDS: LANTUS 0.05 UNITS SC (01:06)
[2024-02-29] MEDS: XALATAN OPHTHALMIC SOLUTION 1 DROP BOTH EYES (01:09)
[2024-02-29 01:19] LABS: Lactic Acid 10.8 mmol/L (0.7-2.0)
[2024-02-29 01:20] LABS: Blood Urea Nitrogen 17 mg/dl (7-17); Carbon Dioxide 13 mmol/L (22-30); Chloride 106 mmol/L (98-107); Estimated Creatinine Clearance 17 ml/min; Glucose 54 mg/dl (70-99); Magnesium 1.9 mg/dl (1.6-2.3); Phosphorus 2.9 mg/dl (2.5-4.5); Potassium 3.6 mmol/L (3.5-5.1); Sodium 134 mmol/L (135-145); eGFR 18.29
[2024-02-29] MEDS: DEXTROSE 50% SYRINGE 12.5 GRAMS IV ×3 (01:22→07:36)
[2024-02-29 02:28] LABS: Glucose - Point of Care 81 mg/dl (70-99)
[2024-02-29 02:48] LABS: B.E. -18.3 mmol/L; PCO2 22 mmHg (32-35); PO2 101 mmHg (83-108)
[2024-02-29 02:49] LABS: O2 Saturation % 95.9 % (94-98); O2 Therapy 40%
[2024-02-29 02:50] LABS: HCO3 8.2 mmol/L (21-28); pH 7.18 (7.35-7.45)
[2024-02-29 03:04] LABS: Hematocrit 21.9 % (37.0-47.0); Hemoglobin 7.3 g/dL (12.0-16.0); Mean Corp Hgb Conc. 33.3 g/dL (33.0-37.0); Mean Corpuscular Hgb 28.7 pg (27.0-31.0); Mean Corpuscular Volume 86.2 fL (81.0-99.0); Platelet Count 37 10^3/uL (130-400); Red Blood Cell Count 2.54 10^6/uL (4.20-5.40); Red Cell Dist. Width 18.7 % (11.5-14.5); White Blood Cell Count 38.1 10^3/uL (4.8-10.8)
[2024-02-29] MEDS: SODIUM BICARBONATE 1150 MEQ IV ×2 (03:32→09:40)
[2024-02-29 03:39] LABS: Lactic Acid 11.5 mmol/L (0.7-2.0)
[2024-02-29 03:44] LABS: Blood Urea Nitrogen 17 mg/dl (7-17); Calcium 7.5 mg/dl (8.4-10.2); Carbon Dioxide 6 mmol/L (22-30); Chloride 109 mmol/L (98-107); Estimated Creatinine Clearance 16 ml/min; Glucose 79 mg/dl (70-99); Phosphorus 3.1 mg/dl (2.5-4.5); Potassium 3.8 mmol/L (3.5-5.1); Sodium 133 mmol/L (135-145); eGFR 17.53
[2024-02-29 03:45] VITALS: BMI 24.5
--- NOTE | 2024-02-29 03:52 | PTCARENOTE ---
Blood glucose 54 on BMP, 1/2 amp dextrose given as per protocol. Repeat BG 81. 2 hour check 79. Will continue to follow closely.
As per recent lab work results, bicarb gtt started as ordered. Pt lethargic but responds to verbal stimuli and minimally conversive. Pt agreeable to ventilator if needed. Hgb 7.3, type and screen sent to have on file in lab. No blood order at this
time. Unable to make progress weaning pressors at this time. Remains on triple pressors. Will monitor.
[2024-02-29 05:16] LABS: B.E. -18.5 mmol/L; O2 Saturation % 98.6 % (94-98); PCO2 24 mmHg (32-35); PO2 106 mmHg (83-108)
[2024-02-29 05:17] LABS: Glucose - Point of Care 51 mg/dl (70-99)
[2024-02-29 05:36] LABS: HCO3 8.6 mmol/L (21-28); O2 Therapy 50
[2024-02-29 05:37] LABS: pH 7.16 (7.35-7.45)
[2024-02-29 05:42] LABS: Glucose - Point of Care 102 mg/dl (70-99)
--- NOTE | 2024-02-29 05:59 | W.PN.HOSP.TC ---
Today's Communication/Plan
-
cont abx
repeat cultures
pressors, BIPAP vs Intubation as per ICU, please notify sister LARRY Ferrer when decision is made to intubate.
Bicarb gtt switched from sterile water to dextrose
hold home lantus while npo
monitor H&H transfusion goal 7
PO keppra switched to IV
Assessment / Plan
Assessment / Plan
Physical Exam
General: Lethargic but arousable to an extent,
Respiratory: On BIPAP, lungs clear to auscultation
Cardiac: S1/S2, Regular Rhythm and Murmur (Short systolic murmur at apex)
GI: Soft, Non Tender and Decreased bowel sounds
Skin: ecchymosis on the left chest wall tracking down to the flank area, mottled appearance lower ext's
Neuro: Lethargic arousable to an extent, essentially nonverbal
63F [place] hx Sz hx CVA ESRD Hep C cirrhosis hx endocarditis Diabetes here with septic shock bacteremia unclear source.
#Septic Shock Bacteremia unclear source
ICU admit
cont pressor support as per ICU (requiring vasopressin, Levophed, epinephrine at this time)
Follow blood cultures speciation, repeat blood cultures for clearance
Cont empiric meropenem
Identification Technician eval
ID eval
CT Chest/Abd/Pelvis appreciated
1. Moderate right and trace left pleural effusions, progressed. Right lower lobe confluent consolidation most in keeping with atelectasis/rounded atelectasis.
2. Cirrhosis and portal hypertension changes re-demonstrated.
3. Diffuse anasarca, progressed. Small volume abdominopelvic ascites, progressed.
4. Mild to moderate L1 compression fracture, slightly progressed. Mild L2 compression fracture, new. Findings may represent acute/subacute fractures. Recommend correlation for any point tenderness in this region.
initial troponin 0.046 (likely non-ischemia myocardial injury 2/2 septic shock) since trended down
stress dose steroids
# TME secondary to hypotension/septic shock. neg ammonia lvl
#Acute Hypoxic Respiratory Failure
#Lactic acidosis possibly d/t sepsis vs resp failure
#Anion GAP Metabolic Acidosis 2/2 Lactic acid as above
Cont BIPAP vs intubation as per ICU
Bicarb gtt sterile water switched to
# ESRD
Right chest wall catheter.
Nephrology consulted for dialysis
Continue Nephrocaps
# Liver disease with Alcoholic cirrhosis
Continue lactulose with history of hepatic encephalopathy
# Chronic pain on fentanyl
# Thrombocytopenia
monitor Plt
appears stable at this time
# Mild Hyponatremia
monitor
# Hypokalemia
monitor and replete as necessary.
# chronic anemia from ESRD
monitor H&H
slow trend downward likely from severe sepsis
monitor for now, transfusion goal 7
# Chronic hypotension on scheduled and as needed midodrine
cont prn and scheduled midodrine if able to tolerate PO
pressors as above
# Diabetes-on Lantus insulin 5 units and sliding scale
#Hypoglycemia
home Lantus placed on hold
cont scheduled Q6 sliding scale while NPO
hypoglycemia protocol
bicarb gtt switched from sterile water to dextrose
# Seizures-continue Keppra switched to IV while NPO or unable to tolerate oral medications
# Depression-home Remeron placed on hold pending improvement mental status TME as above
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
# H/O ESBL E. coli sepsis
# History of CVA
# Prolonged QT interval-avoid QT prolonging agents
# Chronic pain syndrome/chronic opiate dependence -on chronic fentanyl patch.
# GERD-continue Pepcid
# Ambulatory dysfunction-Not walked for few years-PT OT consultation when blood pressure stable
# Glaucoma-continue timolol and latanoprost eyedrop
# Severe hypoalbuminemia-albumin 1.5
# Ex-smoker
# DVT prophylaxis-SCDs
# CODE STATUS-full code
Discussed with patient's sister Carissa LARRY (shared POA w/ siblings) Sat Morning updated with regards to concern for possible need intubation.
Total Critical Care Time__50___ minutes. I was immediately available to the patient and staff. I personally examined, reviewed labs, diagnostic images/reports, interpretations, treatment plans, discussed patient care with other providers and
patient's sister Carissa shared POA w/ siblings (patient is unable to make decisions at this time), entered orders as appropriate and documented the medical record.
Anticipated Discharge: > 48 hours
Subjective/Interval History
-
Date of Service: February 29, 2024
lethargic arousable on BIPAP requiring multiple pressors (vasopressin, epinephrine, Levophed)
Objective Data
-
Labs:
Laboratory Results
02/28/24 02/28/24 02/28/24
18:48 19:10 22:50
WBC
Hgb 7.9 L
Hct 23.8 L
Plt Count
PT 30.8 H
INR 2.97
APTT 73.7 H
HCO3 Cancelled
Sodium 129 L
Potassium 3.2 L
Chloride 107
Carbon Dioxide 12 L*
BUN 17
Creatinine 2.8 H
Glucose 118 H
Calcium 7.0 L
02/29/24 02/29/24 02/29/24
00:05 00:44 02:36
WBC 38.1 H
Hgb 7.3 L
Hct 21.9 L
Plt Count 37 L D
PT
INR
APTT
HCO3 6.5 L* 8.2 L*
Sodium 134 L 133 L
Potassium 3.6 3.8
Chloride 106 109 H
Carbon Dioxide 13 L* 6 L*
BUN 17 17
Creatinine 2.8 H 2.9 H
Glucose 54 L* 79
Calcium 7.0 L 7.5 L
02/29/24 02/29/24 02/29/24
04:30 05:03 09:00
WBC
Hgb
Hct
Plt Count
PT
INR
APTT
HCO3 Cancelled 8.6 L*
Sodium Pending
Potassium Pending
Chloride Pending
Carbon Dioxide Pending
BUN Pending
Creatinine Pending
Glucose Pending
Calcium Pending
Vital Signs:
Vital Signs
Temp Pulse Resp BP Pulse Ox
96.8 F L 89 23 98
02/29/24 03:30 02/29/24 04:00 02/29/24 04:00 02/29/24 00:30 02/29/24 03:12
I&O
02/27/24 02/28/24 02/29/24
06:59 06:59 06:59
Intake Total 6.8 / 1866.8
Balance 6.8 / 1866.8
[2024-02-29 06:02] VITALS: PULSE 2; PULSE 89
--- NOTE | 2024-02-29 06:11 | W.PN.UPDATE ---
Update Note
Progress Note Update
ABG has marginal improvement since starting bicarbonate therapy. Discussed with Dr. Johnson about considering intubation. Decision made to trial Bipap to increase minute ventilation, repeat gas in one hour
[2024-02-29] MEDS: LEVOPHED 258 MG IV ×2 (06:26→09:42)
[2024-02-29 07:19] LABS: Cortisol, Random 52.1 ug/dl
[2024-02-29 07:23] LABS: O2 Saturation % 99.6 % (94-98); PCO2 23 mmHg (32-35); PO2 120 mmHg (83-108)
[2024-02-29] MEDS: SOLU-CORTEF 50 MG IV (07:25)
[2024-02-29] MEDS: TIMOPTIC 0.5% OPHTHALMIC SOLUTION 1 DROP BOTH EYES (07:37)
[2024-02-29] MEDS: KEPPRA PO (07:37)
[2024-02-29 07:41] LABS: HCO3 8.6 mmol/L (21-28); pH 7.18 (7.35-7.45)
[2024-02-29 07:44] LABS: Glucose - Point of Care 56 mg/dl (70-99)
[2024-02-29 07:54] LABS: Lactic Acid 10.8 mmol/L (0.7-2.0)
[2024-02-29 08:10] VITALS: PULSE 2; PULSE 85
[2024-02-29 08:28] LABS: Glucose - Point of Care 107 mg/dl (70-99)
--- NOTE | 2024-02-29 08:28 | PTCARENOTE ---
Assumed care at 0700. ABG and Lactic acid sent as ordered. BG 56 at bedside. 1/2 amp D50 given and recheck BG 107. Assessment as noted. Pt on BiPAP 10/5 with 4L, Tachypneic. Unable to get SpO2 with attempts on fingers toes and ears. Minimally
responsive, pulling at gown and pulling covers off, unable to verbalize why. Not following commands at this time. SR with frequent PVCs/bigeminy. BBB. Doppler pulses with cold BLE. Levo, vaso, epi infusing. FMS draining watery diarrhea. HCO3
infusing as ordered. Caustic Cresylate Shift Superintendent notified by TT findings and results of labs.
[2024-02-29 08:40] LABS: Glucose - Point of Care 90 mg/dl (70-99)
--- NOTE | 2024-02-29 08:40 | W.PN.INTV ---
Today's Communication / Plan
Recommendations
Family wants to transition to comfort care after bread wrapper sees the patient
Industrial Coffee Grinder called by nurse
In the meantime, continue with vasopressors and continuous BiPAP
Stop blood draws, stop fingersticks and continue vasopressors until bread wrapper is here
Emotional support provided to the family
Once transitioned to comfort care then inspector and unloader service will sign off at that time
Assessment
-
63-year-old female fci patient from [facility] with a history of diabetes, chronic anemia, chronic pain, CVA, seizures, dysphagia, end-stage renal disease, history endocarditis, chronic hypotension, hepatitis C, cirrhosis, GERD, and
history of hepatic encephalopathy presented with change in mental status and hypotension unresponsive to fluids requiring pressors-inspector and unloader consulted for shock/critical care management 02/28/2024.
Impression:
Shock unresponsive to fluids requiring pressors-suspected septic shock due to E. coli bacteremia in the setting of suspected right lower lobe pneumonia
Right-sided pleural effusion suspected to be parapneumonic
E. coli bacteremia
Toxic metabolic encephalopathy
Moderate right pleural effusion
Pneumonia-fci acquired
Leukocytosis
Nusqiu-vpjlfwczst-hyzzwbxfvq 8.0
Thrombocytopenia-platelet 30
Mild hyponatremia
Hypokalemia
Hyperglycemia
Elevated LFTs
Hypoalbuminemia
Chest ecchymosis
Conditions present prior to admission:
Dysphagia.
Seizure.
History of CVA.
ESRD-on hemodialysis
Atrial fibrillation
Hyperparathyroidism
Chronic thrombocytopenia
History endocarditis.
Chronic hypotension.
Hepatitis C.
Alcohol cirrhosis diagnosed 2003
Hepatic encephalopathy.
Dysphagia.
GERD.
GI bleed-April 2021
Diabetes.
Glaucoma
Chronic pain.
Depression.
Glaucoma
AV fistula. Right leg surgery. Hysterectomy. Extraction infected left upper extremity graft 2022. Hip fracture and humeral fracture. Hysterectomy.
Plan
Patient was admitted to the ICU for hypotension with shock state requiring multiple pressors and now with worsening lactic acidosis on continuous BiPAP
Family at bedside, Carissa (sister) and Bud (brother) and they want to transition to comfort care
They first want to have the bread wrapper see her
After the core measures abstractor is the patient will take her off BiPAP and stop pressors and transition to comfort care that time
Until then, continue with BiPAP at 15/5 cmH2O, continue with vasopressors maintaining MAP >65
Maintain SpO2 >90%
Continue aspiration precautions
Family wants her to be DNR/DNI � I will change this in [facility]
Blood cultures from 02/28/2024 is growing E. coli; follow-up sensitivities
Empiric antibiotics-meropenem initiated
ID consulted
Monitor leukocytosis
Trend lactate, although this is a moot point given patient is pending being transitioned to comfort care
Stop blood draws given she is pending being transitioned to comfort care
Nephrology was going to start CRRT, however given that patient is being transitioned to comfort care, this will now be stopped
All questions were answered to the family and emotional support was provided.
Critical care statement: A total of 38 minutes of critical care time was provided for this patient today. This includes management of unstable vital signs, evaluation of the patient at bedside, reviewing the patient's pertinent medical records
including radiographs, pressor management, sepsis management, microbiology, laboratory evaluations, and discussion with primary team, consultants, pharmacy, nutrition, physical therapy, case management, charge nurse, critical care nursing, and
respiratory therapy.
Diagnostic data:
Chest x-ray 05/18/2021-NAD
Chest x-ray 12/24/2023-small right pleural effusion
Chest x-ray 02/28/2024-borderline CHF, small right pleural effusion
CT chest abdomen and pelvis 02/28/2024-moderate right and trace left pleural effusion, right lower lobe consolidation, cirrhosis and portal hypertension, L1 compression fracture, stable simple appearing probable sebaceous cyst within the left
anterior chest wall subcutaneous tissue measuring 4.5 x 3.6 cm
Subjective Dataa
Subjective Data
Date of Service:
Date of Service: February 29, 2024
Chief Complaint: Kiln Pusher Follow Up
Subjective:
Patient seen and evaluated today at bedside. Family at bedside and they want to transition to comfort care. I spoke with the sister, Carissa, and the brother, Bud. All questions were answered. Patient currently on BiPAP 10/5cmH2O which was raised
to 15/5cmH2O. She is currently on Levophed at 30mcg/min, vasopressin at 0.03 units/min. BP 98/52 via A-line, heart rate 93, and she is saturating 89-90% on 6 L/min bled through the BiPAP.
Review of Systems
General: Unobtainable - Pat Unresp
Objective Data
Data Reviewed
Vital Signs / I&O / Oxygen:
Vital Signs
Temp Pulse Resp BP Pulse Ox
97.4 F 87 22 56/21 95
02/29/24 07:34 02/29/24 08:00 02/29/24 08:00 02/29/24 00:30 02/29/24 08:00
Intake and Output
02/28/24 02/29/24 03/01/24
06:59 06:59 06:59
Intake Total 1946.2101.4 465.9 / 465.9
Balance 1946. / 2101.4 465.9 / 465.9
SaO2 95
Nasal Cannula flow liters per 4
minute
Physical Exam
General: Respiratory Distress (negative), Chills (negative), Sweats (negative) and Other (NAD, minimally responsive)
HEENT: Normocephalic and Anicteric
Cardiovascular: S1-S2 and Peripheral Edema (negative)
Respiratory: Wheeze (negative), Crackles (Bilateral), Rhonchi (negative), Non-Labored Respirations and Stridor (negative)
GI: Soft, Non Distended, Non Tender and Normal Bowel Sounds
Neurology: Tremors (negative) and Unresponsive (Minimally responsive)
Skin: Warm, Dry, Cyanosis (negative) and Jaundice (negative)
Labs/Micro/Reports
Laboratory Results
02/28/24 02/28/24 02/29/24
18:48 22:50 00:05
PT 30.8 H
INR 2.97
APTT 73.7 H
pH Cancelled 7.12 L*
pCO2 Cancelled 20 L
pO2 Cancelled 79 L
HCO3 Cancelled 6.5 L*
O2 Delivery Level Cancelled 4l
02/29/24 02/29/24 02/29/24
02:36 04:30 05:03
PT
INR
APTT
pH 7.18 L* Cancelled 7.16 L*
pCO2 22 L Cancelled 24 L
pO2 101 Cancelled 106
HCO3 8.2 L* Cancelled 8.6 L*
O2 Delivery Level 40% Cancelled 50
02/29/24 02/29/24
07:12 09:37
PT
INR
APTT
pH 7.18 L* 7.19 L*
pCO2 23 L 23 L
pO2 120 H 126 H
HCO3 8.6 L* 8.8 L*
O2 Delivery Level
Microbiology
02/28/24 12:37 Blood/Venous Blood Culture - Preliminary
Positive culture in progress
02/28/24 12:37 Blood/Venous Gram Stain - Final
02/28/24 12:37 Blood/Venous Blood Culture - Preliminary
Positive culture in progress
02/28/24 12:37 Blood/Venous Gram Stain - Final
--- NOTE | 2024-02-29 09:13 | CON.ID ---
Consultation
-
Date/Time Consultation Requested: 02/29/2024 0835
Date/Time Consultation Performed: 02/29/2024 0857
Requesting Provider: Dr. Oakes
Performing Provider: Dr. Sheth
Reason for Consultation: Bacteremia; clinical sepsis
Chief Complaint / Past History
History of Present Illness
María Brooks is a 63-year-old female with a significant past medical history of ESRD�HD and recent prior ESBL E. coli I.E., being evaluated at the request of Dr. Oakes in regards to bacteremia. History is obtained from chart review, along with
patient interview.
The patient is known to the Infectious Diseases service, having been seen in mid December 2023 for fever. Ultimately she was diagnosed with suspected mitral valve endocarditis secondary to ESBL E. coli. (She has a prior history of MV I.E.
secondary to MSSA in 05/2022). She was ultimately discharged, to continue/complete a course of meropenem through 02/03/2024.
She presented to the emergency room on 02/25/2024 from her group home secondary to increased edema and fatigue. There were no history of fevers. She was found to be anemic and given 1 unit of PRBCs and discharged.
She presents back from [facility] yesterday for hypotension while on hemodialysis. No history of fevers. In the ER her white count was found to be 12.3. She was empirically started on meropenem and today blood cultures obtained at admission
are positive for gram-negative rods. Infectious Diseases is asked to comment on further antimicrobial management.
At present, the patient provides no history for me and is only barely arousable.
Past History
Additional Past Medical History:
ESRD�HD
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
Epilepsy
Hx MV IE (MSSA; 05/2022. ESBL E. coli; 12/2023)
Anemia
DM type II
HTN
GERD
Additional Past Surgical History:
Left hip fracture/repair
History of left humeral fracture
NATHAN
Allergy History:
No Known Allergies Allergy (Verified 02/25/24 14:51)
Medications Reviewed: Yes
Current Antibiotics:
Meropenem 500 mg IV every 24 hours
Social History
Tobacco: Non-Smoker
Alcohol: None
Drug: None
Personal: Single
Living: Intermediate
Employment: Not Employed
Family History
Family History: Not Pertinent
Review of Systems
Vital Signs
Temp Pulse Resp BP Pulse Ox
97.4 F 87 22 56/21 95
02/29/24 07:34 02/29/24 08:00 02/29/24 08:00 02/29/24 00:30 02/29/24 08:00
Physical Exam
Physical Exam
Constitutional: Acutely Ill, Chronically Ill and Toxic
Head: Normocephalic and Other (BiPAP in place)
Eyes: No Conjunctival Hemorrhage and Sclera Anicteric
Cardiovascular: Regular Rate and S1/S2; Negative S3/S4 or Murmur
Pulmonary: Coarse
Gastrointestinal: Soft, Non Distended, Normal Bowel Sounds, No Rebound, No Guarding and Other (FMS in place with liquid stool)
Genito-Urinary: Negative Carrillo
Extremities: Venous Insufficiency (Lower extremities) and Other (Areas of petechiae noted on plantar area of left foot; ?Janeway lesions); Negative Edema, Cyanosis or Splinter Hemorrhage
Skin: Warm and Dry
Neurological: Other (Arousable to touch/noxious stimuli. Nonverbal for me.)
Psychological: Calm
Lines: PICC (Right upper extremity) and HD Cath (Right ACW; exit site without surrounding erythema)
.
Lab / Diagnostic Study Results
Abs Immat Gran (auto) 0.3 10^3/uL (0-0.05) H 02/28/24 07:41
Absolute Neuts (auto) 10.7 10^3/uL (1.4-6.5) H 02/28/24 07:41
Absolute Lymphs (auto) 0.7 10^3/uL (1.2-3.4) L 02/28/24 07:41
Absolute Monos (auto) 0.4 10^3/uL (0.1-0.6) 02/28/24 07:41
Absolute Basos (auto) 0.0 10^3/uL (0-0.2) 02/28/24 07:41
Immature Gran % 2.4 % (0-0.5) H 02/28/24 07:41
Neutrophils % 86.4 % (42.2-75.2) H 02/28/24 07:41
Lymphocytes % 5.7 % (20.5-51.1) L 02/28/24 07:41
Monocytes % 3.3 % (1.7-9.3) 02/28/24 07:41
Eosinophils % 1.9 % (0-6) 02/28/24 07:41
Basophils % 0.3 % (0-2) 02/28/24 07:41
PT 30.8 Sec (11.4-14.6) H 02/28/24 18:48
INR 2.97 02/28/24 18:48
Lactic Acid 10.8 mmol/L (0.7-2.0) H* 02/29/24 07:12
Microbiology Results
Micro:
02/29/24 08:49 Blood Culture - Pending
Blood/Venous
02/29/24 08:49 Blood Culture - Pending
Blood/Venous
02/28/24 12:37 Blood Culture - Preliminary
Blood/Venous Positive culture in progress
Gram Stain -GNR's
02/28/24 12:37 Blood Culture - Preliminary
Blood/Venous Positive culture in progress
Gram Stain -GNR's
02/28/24 18:48 MRSA Screen - Pending
Nose
Imaging:
02/28/2024 CXR (portable): A new PICC line in place to right basilic access. Moderate right pleural effusion with underlying atelectasis versus infiltrate right lung base.
02/28/2024 CT chest / abdomen / pelvis : Moderate right and trace left pleural effusion. Right lower lobe confluent consolidation suggestive of atelectasis. Cirrhosis and portal hypertension changes are noted. Diffuse anasarca; progressed. Please
see full dictation for additional detail.
03/04/2023 ECHO (TTE): Thickened mitral valve leaflets. Mobile echodensity on posterior mitral valve leaflet measures 1.6 cm x 1.3 cm. Moderate/severe mitral regurgitation. Moderate mitral stenosis. Please see full dictation for additional detail.
Assessment / Plan
Bacteremia with gram-negative rods
Clinical sepsis
Hypoxemic respiratory failure
Hypotension; on 3 pressors
Marked leukocytosis
Thrombocytopenia
Hyponatremia
Lactic acidosis (10.8)
Transaminitis
ESRD�HD
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
Epilepsy
Hx MV IE (MSSA; 05/2022. ESBL E. coli; 12/2023)
Anemia
DM type II
HTN
GERD
Recommendations:
Continue meropenem for the present. Dose is appropriate for ESRD-HD.
Repeat blood cultures have been ordered and obtained.
Await further identification of recovered isolate to guide ongoing antibiotic selection and potential de-escalation.
Follow white count, CBC
Trend temperature curve
Trend lactate.
Check repeat echocardiogram
Further recommendations as additional data is returned.
Given underlying comorbidities, and medical fragility of patient, outlook appears extremely guarded.
Patient is critically ill, on 3 pressor support, BiPAP in ICU.
Care Review
Plan reviewed with: Physician (Hospitalist)
[2024-02-29] MEDS: KEPPRA 250 MG IV (09:45)
[2024-02-29 09:48] LABS: B.E. -17.8 mmol/L; O2 Saturation % 99.5 % (94-98); PCO2 23 mmHg (32-35); PO2 126 mmHg (83-108)
[2024-02-29 09:53] LABS: HCO3 8.8 mmol/L (21-28); pH 7.19 (7.35-7.45)
[2024-02-29 09:56] LABS: Glucose - Point of Care 80 mg/dl (70-99)
[2024-02-29 10:10] VITALS: PULSE 2; PULSE 83
[2024-02-29] MEDS: PITRESSIN 100 IV (10:16)
[2024-02-29 10:23] LABS: Blood Urea Nitrogen 17 mg/dl (7-17); Calcium 7.2 mg/dl (8.4-10.2); Carbon Dioxide 7 mmol/L (22-30); Chloride 109 mmol/L (98-107); Estimated Creatinine Clearance 16 ml/min; Glucose 86 mg/dl (70-99); Potassium 3.8 mmol/L (3.5-5.1); Sodium 133 mmol/L (135-145); eGFR 16.83
--- NOTE | 2024-02-29 11:14 | W.PN.NEPH.PH ---
Today's Communication / Plan
-
Will require FRONT DESK OFFICER if family wants proceed
Assessment/Plan
-
63-year-old female from [facility] with past medical history of chronic kidney disease on dialysis Saturday, liver disease, CVA hypertension thrombocytopenia alcoholic cirrhosis seizures, mitral valve endocarditis
recently seen in the ER for anemia, February 24 and given 1 unit of packed red blood cells sent for low BP. Patient is on midodrine for blood pressure . She presents today to the emergency room with hypotension from dialysis that she did not get
dialysis today her last dialysis was Saturday.
Renal consultation for end-stage renal disease management.
Blood pressure systolic was as low as 75. She is getting a 250 bolus of normal saline we did have an improvement to systolic of 90.
She was admitted in December 2023 with bacteremia was on IV meropenem for E. coli. Completed antibiotics February 02 for a diagnosed of endocarditis
Assessment
ESRD Saturday
Hypotension
ESLD on chronic midodrine with dialysis
Chronic thrombocytopenia pancytopenia
Paroxysmal atrial fibrillation
Diabetes mellitus type 2
Seizure disorder
Right CVC HD catheter/resection of left upper extremity hybrid AV graft
History of endocarditis status post meropenem completed 02/03/24
History of cirrhosis
Plan:
No heparin on dialysis
Patient septic shock with developing lactic acidosis secondary to perfusion likely.
Patient is on BiPAP not mentating.
Prognosis is poor at best unfortunately and will require CRRT with unlikely a good response.
Will be communicating this with the family decide on how aggressive they would like to be.
FRONT DESK OFFICER is ordered in the event they want to continue
Total Time Spent with Patient (in minutes): 75
-
-
Date of Service: February 29, 2024
CC / HPI / ROS
-
Patient is extremely lethargic and minimal responsiveness on BiPAP with worsening clinical status on pressor support and acidosis.
Unable to obtain review of systems.
Labs
-
Labs:
WBC 38.1 10^3/uL (4.8-10.8) H 02/29/24 02:36
RBC 2.54 10^6/uL (4.20-5.40) L 02/29/24 02:36
Plt Count 37 10^3/uL (130-400) L D 02/29/24 02:36
Sodium 133 mmol/L (135-145) L 02/29/24 08:48
Potassium 3.8 mmol/L (3.5-5.1) 02/29/24 08:48
Chloride 109 mmol/L (98-107) H 02/29/24 08:48
Carbon Dioxide 7 mmol/L (22-30) L* 02/29/24 08:48
BUN 17 mg/dl (7-17) 02/29/24 08:48
Creatinine 3.0 mg/dL (0.6-1.0) H 02/29/24 08:48
eGFR 16.83 02/29/24 08:48
Glucose 86 mg/dl (70-99) 02/29/24 08:48
Calcium 7.2 mg/dl (8.4-10.2) L 02/29/24 08:48
Phosphorus 3.1 mg/dl (2.5-4.5) 02/29/24 02:36
Albumin 1.5 g/dl (3.5-5.0) L 02/28/24 07:41
Physical Exam
-
Vital Signs:
Vital Signs
Temp Pulse Resp BP Pulse Ox
97.4 F 87 22 56/21 89
02/29/24 07:34 02/29/24 08:00 02/29/24 08:00 02/29/24 00:30 02/29/24 10:14
Cardiovascular:: Regular rate and rhythm
Respiratory:: Bilateral: Coarse
Lung Excursion:: Normal
Abdomen:: Nontender and Soft
Bowel Sounds:: Normal
Extremity Edema:: None: Bilateral:
Other Findings::
Minimal response mental status
--- NOTE | 2024-02-29 11:20 | PTCARENOTE ---
"Family to bedside and expressed concern that we are doing procedures that are not appropriate. Discussed options including no escalation and comfort measures. Sister (POA) and brother decided to speak to ribbon hanking machine operator about comfort measures. Dr Majano"Alex notified. "
--- NOTE | 2024-02-29 11:55 | PTCARENOTE ---
Communication Lecturer to bedside. BiPAP removed and 3L NC applied for comfort and to hear last rites.
--- NOTE | 2024-02-29 12:07 | CM ---
Pt is from [facility] she received HD.
Pt in ICU spoke with sister Carissa who is at bedside she said that the patient is near deaf and that pastornj care has been called.
Support offered . Carissa said she has no other needs at this time from .
PLAN Supportive Comfort care
[2024-02-29] MEDS: NSS (PRESERVATIVE FREE) 0.5 ML IV (12:31)
[2024-02-29] MEDS: ATIVAN 0.5 MG IV (12:31)
[2024-02-29] MEDS: DILAUDID 1 MG IV (12:32)
--- NOTE | 2024-02-29 12:42 | PTCARENOTE ---
1240 Ativan and Dilaudid IVP given. Vasopressin, levophed, and epinephrine off as ordered with Comfort measures. Family at bedside.
[2024-02-29] MEDS: SOLU-CORTEF IV (14:31)
--- NOTE | 2024-02-29 14:40 | CHAP ---
Called by nursing for María and family. Her sister, Carissa, and brother, James, were present, along with extended family members. They shared background about María, who is beloved by all as 'Aunt María.' We offered prayers from the [employer]
and asked God's blessings for María and her family, giving thanks. Emotional and spiritual support provided, along with a prayer blanket.
--- NOTE | 2024-02-29 15:47 | PTCARENOTE ---
Pt passed at 1526 with family at bedside[address] Dr Oakes to bedside and pronounced the of patient.
--- NOTE | 2024-02-29 15:48 | W.PN.DEATH ---
Pronouncement of
-
Called to see patient to pronounce.
No spontaneous heart tones or respirations noted.
Patient not responsive to verbal stimuli.
Patient is pronounced .
Time of : 15:26
Date of : 02/29/24
Cause of : Septic Shock 2/2 Pneumonia d/t ESBL E. coli Bacteremia 2/2 Infective Endocarditis
Family Notified: Yes
--- NOTE | 2024-02-29 18:47 | W.DCSUMMARY ---
Discharge Summary
Discharge Data
Date of Admission: 02/28/24
Date of Discharge: 02/29/24
-
Pending Results: No
Discharge Plan
-
Patient Disposition:
Date/Time
Date/Time: 02/29/24 17:17
Discharge Date and Time
Discharge Date/Time: 02/29/24 17:17
Print Language: AUSTRIAN
== END 2024-02-29 17:17 | disposition expired | DRG 871 ==
LOC: ICU 12:27
PROVIDERS: Internal Medicine Critical Care Medicine; Nurse Practitioner; Nurse Practitioner Primary Care; Radiology Diagnostic Radiology; ADMITTING PHYSICIAN Hospitalist; ATTENDING PHYSICIAN Internal Medicine; CONSULT PHYSICIAN Internal Medicine Critical Care Medicine; CONSULT PHYSICIAN Internal Medicine Infectious Disease; CONSULT PHYSICIAN Internal Medicine Nephrology; EMERGENCY PHYSICIAN Student in an Organized Health Care Education/Training Program; FAMILY PHYSICIAN Internal Medicine
PROC: 02H633Z Insertion of Infusion Device into Right Atrium, Percutaneous Approach (ICD-10-PCS; 2024-02-28)
PROC: 5A09357 Assistance with Respiratory Ventilation, Less than 24 Consecutive Hours, Continuous Positive Airway Pressure (ICD-10-PCS; 2024-02-29)
DX: A41.51 Sepsis due to Escherichia coli [E. coli] (principal); G92.8 Other toxic encephalopathy; N18.6 End stage renal disease; R65.21 Severe sepsis with septic shock; J15.5 Pneumonia due to Escherichia coli; J96.01 Acute respiratory failure with hypoxia; I12.0 Hypertensive chronic kidney disease with stage 5 chronic kidney disease or end stage renal disease; D61.818 Other pancytopenia; F11.20 Opioid dependence, uncomplicated; J90 Pleural effusion, not elsewhere classified; J98.11 Atelectasis; E87.1 Hypo-osmolality and hyponatremia; E87.20 Acidosis, unspecified; I5A Non-ischemic myocardial injury (non-traumatic); M48.56XA Collapsed vertebra, not elsewhere classified, lumbar region, initial encounter for fracture; K76.6 Portal hypertension; Z16.12 Extended spectrum beta lactamase (ESBL) resistance; I95.3 Hypotension of hemodialysis; R53.1 Weakness; D63.1 Anemia in chronic kidney disease; K70.30 Alcoholic cirrhosis of liver without ascites; G40.909 Epilepsy, unspecified, not intractable, without status epilepticus; E11.65 Type 2 diabetes mellitus with hyperglycemia; I48.0 Paroxysmal atrial fibrillation; G89.4 Chronic pain syndrome; I95.89 Other hypotension; R13.10 Dysphagia, unspecified; Y95 Nosocomial condition; E88.09 Other disorders of plasma-protein metabolism, not elsewhere classified; H40.9 Unspecified glaucoma; R26.2 Difficulty in walking, not elsewhere classified; R74.01 Elevation of levels of liver transaminase levels; E21.3 Hyperparathyroidism, unspecified; E87.6 Hypokalemia; F32.A Depression, unspecified; E11.22 Type 2 diabetes mellitus with diabetic chronic kidney disease; E11.649 Type 2 diabetes mellitus with hypoglycemia without coma; K21.9 Gastro-esophageal reflux disease without esophagitis; Z99.2 Dependence on renal dialysis; Z87.440 Personal history of urinary (tract) infections; Z86.16 Personal history of COVID-19; Z86.19 Personal history of other infectious and parasitic diseases; Z86.79 Personal history of other diseases of the circulatory system; Z79.4 Long term (current) use of insulin; Z87.891 Personal history of nicotine dependence; Z86.73 Personal history of transient ischemic attack (TIA), and cerebral infarction without residual deficits
CPT/HCPCS: 71045; 71250; 74176; 80048; 80053; 82140; 82533; 82805; 82962; 83605; 83735; 83880; 84100; 84443; 84484; 85014; 85018; 85025; 85027; 85610; 85730; 86706; 86850; 86900; 86901; 86920; 87040; 87070; 87149; 87186; 87205; 87340; 92610; 93005; 94660; 96365; 96366; 99285; Q5106